=== PATIENT | female | born 1975 | race Two or more races ===

== ENCOUNTER → 2016-06-06 | Outpatient (REF) | payer BC ==
[2016-06-07 13:50] LABS: PERCENT SATURATION 5.2 % (13.2-37.4)
[2016-06-07 14:11] LABS: FOLATE 9.1 NG/ML (>5.4)
== END ==
LOC: M LAB REF 12:22
PROVIDERS: ATTEND Internal Medicine
DX: D50.9 Iron deficiency anemia, unspecified (principal)

== ENCOUNTER → 2017-02-28 | Outpatient (CLI) | payer BC ==
--- NOTE | 2017-03-01 09:52 | REP ---
Maxillofacial CT without contrast: History: Disturbance of smell and taste. No comparison imaging. Technique: Helical scanning is acquired and 3 mm axial images are reformatted and viewed at soft tissue and bone window settings. Coronal multiplanar re-formation images are generated. CT findings: The frontal, ethmoid, sphenoid, and maxillary sinuses are clear. Mastoid aeration is normal and symmetric. No intraorbital mass lesion is seen. Bony orbital margins are intact. Deep facial soft tissues are unremarkable and symmetric. Nasopharynx is unremarkable. The bony nasal septum is in the midline. Nasal turbinate soft tissues are normal. No nasal polyp is seen. There are bilateral aerated dylan bullosa. The ostiomeatal complexes are patent bilaterally. Nasal ethmoid recesses are unremarkable. Jess blanca and olfactory grooves are normal in appearance. No bony destructive lesion is seen. Impression: Negative maxillofacial CT study. Signed by Lester Baker MD 03/01/2017 03:54 P
== END ==
LOC: M RAD 18:02
PROVIDERS: ATTEND Otolaryngology
DX: R43.9 Unspecified disturbances of smell and taste (principal)

== ENCOUNTER → 2017-04-21 | Outpatient (REF) | payer BC ==
[2017-04-21 14:42] LABS: INFLUENZA A AMPLIFICATION NEGATIVE (NEGATIVE); INFLUENZA B AMPLIFICATION POSITIVE (NEGATIVE); RSV AMPLIFICATION NEGATIVE (NEGATIVE)
== END ==
LOC: M LAB REF 13:43
DX: J11.1 Influenza due to unidentified influenza virus with other respiratory manifestations (principal)
CPT/HCPCS: 87502

== ENCOUNTER → 2017-05-18 | Outpatient (CLI) | payer BC | LOC: M RAD 17:09 | DX: N93.8 Other specified abnormal uterine and vaginal bleeding (principal) ==

== ENCOUNTER → 2017-06-16 | Outpatient (REF) | payer BC | LOC: M SFHCLERA 18:05 | DX: R50.9 Fever, unspecified (principal) ==

== ENCOUNTER → 2019-02-25 | Outpatient (REF) | payer BC | LOC: M SFHCLERA 10:25 | PROVIDERS: ATTEND Family Medicine | DX: E66.01 Morbid (severe) obesity due to excess calories (principal); D64.9 Anemia, unspecified ==

== ENCOUNTER → 2019-12-19 | Outpatient (CLI) | payer BC ==
--- NOTE | 2019-12-19 17:20 | REPMRS ---
Patient History The patient states she has not had a clinical breast exam in over a year. Family history of ovarian cancer in maternal aunt, endometrial cancer at age 36 in mother, colorectal cancer at age 50 or over and pancreatic cancer at age 50 or over in maternal grandfather. No Hormone Replacement Therapy Digital Woman Screen Mammo: December 19, 2019 - Exam #: [id number] Bilateral CC and MLO view(s) were taken. Technologist: Elizabeth Dennison, Technologist Prior study comparison: July 10, 2013, digital mammo diagnostic bilateral, performed at [facility]. FINDINGS: The breast tissue is almost entirely fat. The Volpara volumetric breast density category is: A. There is a 9 mm well-circumscribed nodular opacity in the upper outer quadrant on the right breast which does not appear to have been present previously. This merits further evaluation. There has been no other change in the appearance of the mammogram from the prior studies. There is no other interval development of dominant mass, architectural distortion, or grouped microcalcification typical of malignancy. 3-D tomosynthesis shows no additional findings. Assessment: BI-RADS/ACR category 0 mammogram, Incomplete. Need additonal imaging evaluation and/or prior mammograms for comparison. Recommendation Ultrasound and special view mammogram of the right breast. This patient's Lifetime Breast Cancer RIsk is estimated at 9.0 %. This mammogram was interpreted with the aid of an FDA-approved computer-aided dectection system. Electronically Signed By: Tito Baker MD 12/19/19 [id number]
== END ==
LOC: M WHC 15:01
PROVIDERS: ATTEND Nurse Practitioner Family
DX: Z12.31 Encounter for screening mammogram for malignant neoplasm of breast (principal); Z80.41 Family history of malignant neoplasm of ovary; Z80.0 Family history of malignant neoplasm of digestive organs; N63.11 Unspecified lump in the right breast, upper outer quadrant

== ENCOUNTER → 2019-12-31 | Outpatient (CLI) | payer BC ==
--- NOTE | 2020-01-01 16:02 | REP ---
INDICATION: R92.8 ABN RIGHT MAMMO; R92.8 ABN RIGHT BREAST. COMPARISON: Mammogram 12/19/2019, and 07/10/2013. TECHNIQUE: Spot compression views of the right breast are performed. Focused right breast of the outer right breast posteriorly. Ultrasound is performed FINDINGS: A low-density nodule persists in the outer right breast posteriorly, as seen on the mammogram of 12/19/2019. Somewhat ill-defined. It is low in density. Real-time sonographic evaluation of the right breast is performed posterolaterally. No sonographic abnormality is seen at the site of the nodule on the mammogram. In the far lateral axillary tail there does appear to be an intramammary lymph node which measures 1.0 x 0.8 x 0.6 cm. This does not appear to correspond to the nodule in question on the mammogram. The lymph node identified sonographically appears to be further way from the nipple. IMPRESSION: BIRADS/ACR category 4 suspicious. Persistent nodule posterolateral right breast with no sonographic correlate. Recommend stereotactic biopsy. This mammogram was interpreted with the aid of an FDA-approved computer-aided detection system. The patient letter being requested is M 4. RECOMMENDATION: Recommend stereotactic biopsy of nodule posterolateral right breast. <Electronically signed by Keith Adams > 01/01/20 [id number]
== END ==
LOC: M WHC 15:38
PROVIDERS: ATTEND Family Medicine
DX: R92.8 Other abnormal and inconclusive findings on diagnostic imaging of breast (principal); N63.10 Unspecified lump in the right breast, unspecified quadrant

== ENCOUNTER → 2020-01-01 | Outpatient (REF) | payer BC | LOC: M SFHCWAGY 13:06 | PROVIDERS: ATTEND Nurse Practitioner Women's Health | DX: Z12.4 Encounter for screening for malignant neoplasm of cervix (principal) ==

== ENCOUNTER → 2020-01-04 | Outpatient (CLI) | payer BC ==
[2020-01-04 17:51] LABS: BASO # 0.1 10^3/uL (0.0-0.2); BASO % 0.8 % (0.0-1.0); EOS # 0.2 10^3/uL (0.0-0.5); EOS % 3.6 % (0.0-3.0); HEMATOCRIT 32.1 % (36.0-47.0); HEMOGLOBIN 8.7 g/dl (12.0-15.5); LYMPH # 2.5 10^3/uL (1.5-5.0); MEAN CORPUSCULAR HEMOGLOBIN 21.3 pg (27.0-33.0); MEAN CORPUSCULAR HGB CONC 27.1 g/dl (32.0-36.5); MEAN CORPUSCULAR VOLUME 78.7 fl (80.0-96.0); MONO # 0.5 10^3/uL (0.0-0.8); MONO % 7.8 % (0.0-5.0); NEUTROPHILS # 3.1 10^3/uL (1.5-8.5); NEUTROPHILS % 48.6 % (36.0-66.0); PLATELET COUNT, AUTOMATED 373 10^3/uL (150-450); RED BLOOD COUNT 4.08 10^6/uL (4.00-5.40); WHITE BLOOD COUNT 6.4 10^3/uL (4.0-10.0)
[2020-01-04 18:09] LABS: ALBUMIN 3.4 GM/DL (3.2-5.2); ALT/SGPT 24 U/L (12-78); BILIRUBIN,TOTAL 0.3 MG/DL (0.2-1.0); BLOOD UREA NITROGEN 10 MG/DL (7-18); CALCIUM LEVEL 9.2 MG/DL (8.5-10.1); CARBON DIOXIDE LEVEL 28 MEQ/L (21-32); CHLORIDE LEVEL 103 MEQ/L (98-107); CHOLESTEROL LEVEL 209 MG/DL (<200); CHOLESTEROL RISK RATIO 2.458 (<5); CREATININE FOR GFR 0.72 MG/DL (0.55-1.30); FERRITIN 5 NG/ML (8-252); FREE T4 0.99 NG/DL (0.76-1.46); GLOMERULAR FILTRATION RATE > 60.0 (>58); GLUCOSE, FASTING 183 MG/DL (70-100); HDL CHOLESTEROL 85 MG/DL (>40); LDL CHOLESTEROL 115 MG/DL (<100); NON-HDL-C 124 MG/DL; POTASSIUM SERUM 4.4 MEQ/L (3.5-5.1); SODIUM LEVEL 137 MEQ/L (136-145); THYROID STIMULATING HORMONE 0.705 uIU/ML (0.358-3.740); TOTAL PROTEIN 7.3 GM/DL (6.4-8.2); TRIGLYCERIDES LEVEL 47 MG/DL (<150)
[2020-01-04 18:14] LABS: HEMOGLOBIN A1c 9.8 %
== END ==
LOC: M WUC 11:48
PROVIDERS: ATTEND Nurse Practitioner Family
DX: R03.0 Elevated blood-pressure reading, without diagnosis of hypertension (principal); D64.9 Anemia, unspecified; E66.01 Morbid (severe) obesity due to excess calories

== ENCOUNTER → 2020-01-05 | Outpatient (CLI) | payer BC ==
--- NOTE | 2020-01-07 06:50 | REP ---
INDICATION: N93.9 AUB/EXCESSIVE MENSES COMPARISON: 05/18/2017 TECHNIQUE: Transabdominal pelvic ultrasound followed by transvaginal examination for better evaluation of the endometrium and adnexa with color Doppler evaluation of the ovaries. FINDINGS: Bladder is unremarkable and measures 5.2 x 8.3 x 10.6 cm. Heterogeneous anteverted myomatous uterus measures 11.0 x 5.9 x 5.5 cm and includes partially calcified degenerating subserosal fibroid measuring 5.7 x 4.9 x 4.5 cm and similar posterior subserosal fibroid measuring 3.4 x 2.8 x 2.6 cm. The endometrial complex measures 8.0 mm thickness. Bilateral ovaries are identified on transabdominal imaging only and demonstrate normal vascularity without torsion. Right ovary measures 3.6 x 2.4 x 2.3 cm (RI 0.49). Left ovary measures 3.6 x 2.3 x 2.5 cm (RI 0.51) and includes 1.8 cm dominant follicle/cyst. No pelvic free fluid. IMPRESSION: Myomatous changes as described above. <Electronically signed by Lorne Frausto > 01/07/20 0646
== END ==
LOC: M WHC 15:47
PROVIDERS: ATTEND Nurse Practitioner Women's Health
DX: N93.9 Abnormal uterine and vaginal bleeding, unspecified (principal)

== ENCOUNTER → 2020-02-09 | Outpatient (CLI) | payer BC | LOC: M LABSMTC 14:26 | PROVIDERS: ATTEND Family Medicine | DX: Z20.828 Contact with and (suspected) exposure to other viral communicable diseases (principal) ==

== ENCOUNTER 2020-04-11 14:26 | Emergency (ER) | payer BC ==
[~2020-04-11] VITALS: Ht 172.7 cm; Wt 113.6 kg
--- OUTSIDE RECORDS SUMMARY | 2020-04-11 14:32 | CCD ---
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 Active 9163238 05 Problem retirement (current) use of insulin Z79.4 Activ e 530480351 Problem Melanocytic nevi of face D22.30 Active 4809462 04 Problem Type 2 diabetes mellitus without complications E11 .9 Active 726209403 Problem Xerosis cutis L85.3 Active 98504161 Problem Obesity, morbid, BMI 40.0-49.9 E66.01 Active 2 79998117 Problem Abnormal mammogram of right breast R92.8 Activ e 468260857 Problem Abnormal uterine bleeding (AUB) N93.9 Active 38433927187957 Problem Iron deficiency anemia, unspecified iron deficiency an emia type D50.9 Active 58107064 ALLERGIES Allergen (clinical drug ingredient) Drug/Non Drug Allergy do cumented on EMR Reaction Allergy Type Onset Date Status bananas, pineapple Anaphylaxis Non Drug Allergy Active Penicillin (For Allergies Use Only) Anaphylaxis Drug Aller gy Active sulfamethoxazole / trimethoprim Bactrim(NDC Code:[address]-28) Hives, itching Drug Allergy Active contrast dye Unknown Drug Allergy Active Latex Gloves(NDC Code:84049-18697) Anaphylaxis Drug Allerg y Active clarithromycin Biaxin Rash Drug Allergy Active Kiwi Anaphylaxis Non Drug Allergy Active bees Anaphylaxis Non Drug Allergy Active clindamycin Clindamycin HCl(NDC Code:[address]-20) Anaphylaxis Drug Allergy Active Amoxicillin-Pot Clavulanate Rash Drug Allergy Active shellfish, seafood Anaphylaxis Drug Allergy Act chad ENCOUNTERS from 1973 to 2020-04-02 [facility] [address] [place] [address], Bipin Quintero IMMUNIZATIONS No Information SOCIAL HISTORY Tobacco Use: Social History Observation Description Date Details (start date - stop date) Never Smoker Sex Assigned At : Social History Observation Description Sex Assigned At Unknown Education: Question Answer Notes Level of Education: College Audit Question Answer Notes Total Score: 0 Interpretation: Alcohol Education Language: Question Answer Notes Languages spoken: Colombian Taoism: Question Answer Notes Taoism 08 Orthodox Sexual Hx: Question Answer Notes Have you ever had an STD? No Drug and Alcohol Question Answer Notes Total Score: 0 Interpretation: No problems reported BMI Care Goal Follow-Up Question Answer Notes Above Normal BMI Follow-Up Dietary management educatio n, guidance, and counseling, Dietary needs education Tobacco Use: Question Answer Notes Are you a: never smoker REASON FOR REFERRAL No Information VITAL SIGNS No information MEDICATIONS Medication SIG (Take, Route, Frequency, Duration) Notes Start Da te End Date Status Benadryl 25 MG 1 capsule Orally as needed Active HydrOXYzine HCl 25 MG 1 tablet as needed Orally every 8 hrs Active Tylenol Extra Strength 500 mg 2 tab(s) Orally every 6 hrs as needed Active Dymista 137-50 MCG/ACT 1 spray in each nostril Nasally Twice a day Not-Taking Sumatriptan 10 MG/ACT 1 puff at onset of headache may repeat dose after 1 hour up to 3 doses per day as needed Nasally Once a day Active Ibuprofen 800 MG 1 tablet Orally four times d aily as needed for pain take with food for 10 day(s) Mar, Not-Taking Xyzal 2-3 tablets Orally Once a day Active Metformin HCl 500 MG 1 tablet with a meal Orally bid, after 2 weeks if tolerating increase to 1000 mg BID for 30 day(s) Active Sudafed 30 MG 1 tablet as needed Orally every 6 hrs for 5 day(s) Jun, Active Chlorhexidine Gluconate 0.12 % 15 ml Mouth/Throat, swi sh and spit bid for 10 day(s) Mar, Not-Taking EPINEPHrine 0.15 MG/DOSE Injection Not-Taking Azelastine HCl 0.05 % 1-2 drops into affected eye Ophthalmic Twice a day for 7 day(s) Apr, Active ProAir HFA 108 (90 Base) mcg/act 2 puffs as needed Inh alation qid prn for 90 day(s) Active HydrOXYzine HCl 25 MG 1 tablet as needed Orally every 8 hrs for 30 da y(s) Not-Taking Ibuprofen 800 MG 1 tablet with food or milk as needed Ora lly Three times a day Active Inna Active Lupron Depot (1-Month) 3.75 MG as directed Intramuscul ar every month for 30 days Feb, Active Zyrtec Allergy 10 MG 1 tablet Orally Once a day Active Sumatriptan Succinate 50 mg 1 tablet as needed one aleyda e Orally daily as needed for 15 day(s) Not-Taking Nasacort Allergy 24HR 55 MCG/ACT 1 spray in each nostril Nasally On a day Active PROCEDURES No Information RESULTS No Results REASON FOR VISIT FYI MEDICAL (GENERAL) HISTORY Type Description Date Medical History Allergic rhinitis Medical History Atopic dermatitis Medical History Childhood asthma (inactive) Medical History migraine headaches Medical History pap (Dr garvey) 2011 due 2013 Surgical History tonsillectomy/adenoidectomy 1993 Surgical History D&C x3 Surgical History Titanium Chip in Breast Hospitalization History surgeries above Hospitalization History asthma/pneumonia as a child Goals Section No Information Health Concerns No Information MEDICAL EQUIPMENT No Information MENTAL STATUS No Information FUNCTIONAL STATUS No Information ASSESSMENTS No Information PLAN OF TREATMENT Medication Medication Name Sig Start Date Stop Date Metformin HCl 500 MG 1 tablet with a meal Orally bid, after 2 weeks if tolerating increase to 1000 mg BID for 30 day(s) Next Appt Details Provider Name:Bipin Quintero, 2020-04-08 01:00:00 PM, [address] [place], [address], Provider Name:Bipin Quintero 2020-05-13 04:15:00 PM, [address] [place], [address], Insurance Providers Payer Name Payer Address Payer Phone Insured Name Patient Relati onship to Insured Coverage Start Date Coverage End Date [facility] [place] [id number] [address] [place] [address] [id number] CHRYSTAL VALENZUELA self
--- OUTSIDE RECORDS SUMMARY | 2020-04-11 14:32 | CCD ---
Author Author [facility] Organization 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 Active 8553941 05 Problem senior care (current) use of insulin Z79.4 Activ e 492271159 Problem Melanocytic nevi of face D22.30 Active 8390965 04 Problem Type 2 diabetes mellitus without complications E11 .9 Active 299096416 Problem Xerosis cutis L85.3 Active 12860734 Problem Obesity, morbid, BMI 40.0-49.9 E66.01 Active 2 47173293 Problem Abnormal mammogram of right breast R92.8 Activ e 964976523 Problem Abnormal uterine bleeding (AUB) N93.9 Active 90166507699984 Problem Iron deficiency anemia, unspecified iron deficiency an emia type D50.9 Active 10122890 ALLERGIES Allergen (clinical drug ingredient) Drug/Non Drug Allergy do cumented on EMR Reaction Allergy Type Onset Date Status bananas, pineapple Anaphylaxis Non Drug Allergy Active Penicillin (For Allergies Use Only) Anaphylaxis Drug Aller gy Active sulfamethoxazole / trimethoprim Bactrim(NDC Code:[address]-52) Hives, itching Drug Allergy Active contrast dye Unknown Drug Allergy Active Latex Gloves(NDC Code:91591-29537) Anaphylaxis Drug Allerg y Active clarithromycin Biaxin Rash Drug Allergy Active Kiwi Anaphylaxis Non Drug Allergy Active bees Anaphylaxis Non Drug Allergy Active clindamycin Clindamycin HCl(NDC Code:[address]-36) Anaphylaxis Drug Allergy Active Amoxicillin-Pot Clavulanate Rash Drug Allergy Active shellfish, seafood Anaphylaxis Drug Allergy Act chad ENCOUNTERS from 1973 to 2020-02-27 Encounter [facility] Date [facility] [address] [place] [address] Feb, Bipin Quintero Influenza J11.1 ; Breast nodule N63.0 an d Type 2 diabetes mellitus without complications E11.9 IMMUNIZATIONS No Information SOCIAL HISTORY Tobacco Use: Social History Observation Description Date Details (start date - stop date) Never Smoker Sex Assigned At : Social History Observation Description Sex Assigned At Unknown Education: Question Answer Notes Level of Education: College Audit Question Answer Notes Total Score: 0 Interpretation: Alcohol Education Language: Question Answer Notes Languages spoken: Greenlandic Faith: Question Answer Notes Faith 08 Moravian Sexual Hx: Question Answer Notes Have you ever had an STD? No Drug and Alcohol Question Answer Notes Total Score: 0 Interpretation: No problems reported BMI Care Goal Follow-Up Question Answer Notes Above Normal BMI Follow-Up Dietary management educatio n, guidance, and counseling, Dietary needs education Tobacco Use: Question Answer Notes Are you a: never smoker REASON FOR REFERRAL No Information VITAL SIGNS Weight 299 lbs Feb, Height 67 in Feb, BMI 46.82 kg/m2 Feb, Heart Rate 80 /min Feb, Respiratory Rate 18 /min Feb, Temperature 98.1 degrees Fahrenheit Feb, Oximetry 100% Feb, Blood pressure systolic 152 mm Hg Feb, Blood pressure diastolic 93 mm Hg Feb, MEDICATIONS Medication SIG (Take, Route, Frequency, Duration) Notes Start Da te End Date Status HydrOXYzine HCl 25 MG 1 tablet as needed Orally every 8 hrs Active Sumatriptan Succinate 50 mg 1 tablet as needed one aleyda e Orally daily as needed for 15 day(s) Not-Taking Benadryl 25 MG 1 capsule Orally as needed Active Ibuprofen 800 MG 1 tablet Orally four times d aily as needed for pain take with food for 10 day(s) Mar, Not-Taking Tylenol Extra Strength 500 mg 2 tab(s) Orally every 6 hrs as needed Active EPINEPHrine 0.15 MG/DOSE Injection Not-Taking Sumatriptan 10 MG/ACT 1 puff at onset of headache may repeat dose after 1 hour up to 3 doses per day as needed Nasally Once a day Active Lupron Depot (1-Month) 3.75 MG as directed Intramuscul ar every month for 30 days Feb, Active Ibuprofen 800 MG 1 tablet with food or milk as needed Ora lly Three times a day Active HydrOXYzine HCl 25 MG 1 tablet as needed Orally every 8 hrs for 30 da y(s) Not-Taking Chlorhexidine Gluconate 0.12 % 15 ml Mouth/Throat, swi sh and spit bid for 10 day(s) Mar, Not-Taking Xyzal 2-3 tablets Orally Once a day Active Nasacort Allergy 24HR 55 MCG/ACT 1 spray in each nostril Nasally On ce a day Active Dymista 137-50 MCG/ACT 1 spray in each nostril Nasally Twice a day Not-Taking Zyrtec Allergy 10 MG 1 tablet Orally Once a day Active ProAir HFA 108 (90 Base) mcg/act 2 puffs as needed Inh alation qid prn for 90 day(s) Active Metformin HCl 500 MG 1 tablet with a meal Orally bid, after 2 weeks if tolerating increase to 1000 mg BID for 30 day(s) Active Azelastine HCl 0.05 % 1-2 drops into affected eye Ophthalmic Twice a day for 7 day(s) Apr, Active Inna Active Sudafed 30 MG 1 tablet as needed Orally every 6 hrs for 5 day(s) Jun, Active PROCEDURES No Information RESULTS No Results REASON FOR VISIT 1 [facility] MEDICAL (GENERAL) HISTORY Type Description Date Medical History Allergic rhinitis Medical History Atopic dermatitis Medical History Childhood asthma (inactive) Medical History migraine headaches Medical History pap (Dr garvey) 2011 due 2013 Surgical History tonsillectomy/adenoidectomy 1992 Surgical History D&C x3 Hospitalization History surgeries above Hospitalization History asthma/pneumonia as a child Goals Section No Information Health Concerns No Information MEDICAL EQUIPMENT No Information MENTAL STATUS No Information FUNCTIONAL STATUS No Information ASSESSMENTS Encounter Date Diagnosis Assessment Notes Treatment Notes Treatm ent Clinical Notes Feb, Influenza (ICD-10 - J11.1) Patient has the flu. Recommend she stay home and isolate until symptoms resolve. Can provide note for work for patient if needed. Call if symptoms worsen. Should start to improve within the week. Feb, Breast nodule (ICD-10 - N63.0) Has appointment at [facility] tomorrow. Will call to inform of current symptoms. Follow up as they instruct. Patient understood. If unable to get in to call us back, if need referral to call us back. Feb, Type 2 diabetes mellitus without complications ( ICD-10 - E11.9) Patient only taking meformin 1 tablet twice a day. Discussed wait until recover from flu before increasing dose as patient has not increased yet. Understood. PLAN OF TREATMENT Medication Medication Name Sig Start Date Stop Date Metformin HCl 500 MG 1 tablet with a meal Orally bid, after 2 weeks if tolerating increase to 1000 mg BID for 30 day(s) Lupron Depot (1-Month) 3.75 MG as directed Intramuscul ar every month for 30 days Feb, Treatment Notes Assessment Notes Clinical Notes Influenza Patient has the flu. Recommend she stay home and isolate until symptoms resolve. Can provide note for work for patient if needed. Call if symptoms worsen. Should start to improve within the week. Breast nodule Has appointment at [facility] tomorrow. Will call to inform of current symptoms. Follow up as they instruct. Patient understood. If unable to get in to call us back, if need referral to call us back. Type 2 diabetes mellitus without complications Patient only taking meformin 1 tablet twice a day. Discussed wait until recover from flu before increasing dose as patient has not increased yet. Understood. Next Appt Details 1 mth Reason: Provider Name:Bipin Sharma Quintero, 2020-03-18 04:00:00 PM, [address] [place], [address], Insurance Providers Payer Name Payer Address Payer Phone Insured Name Patient Relati onship to Insured Coverage Start Date Coverage End Date [employer] [place] [address] [address] [facility] [address] [place]RYST[place]EN[place] self
--- OUTSIDE RECORDS SUMMARY | 2020-04-11 14:32 | CCD ---
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 Active 7153471 05 Problem shelter (current) use of insulin Z79.4 Activ e 139935720 Problem Melanocytic nevi of face D22.30 Active 4993888 04 Problem Type 2 diabetes mellitus without complications E11 .9 Active 823134486 Problem Xerosis cutis L85.3 Active 66229994 Problem Obesity, morbid, BMI 40.0-49.9 E66.01 Active 2 06506423 Problem Abnormal mammogram of right breast R92.8 Activ e 806635995 Problem Abnormal uterine bleeding (AUB) N93.9 Active 95005139022004 Problem Iron deficiency anemia, unspecified iron deficiency an emia type D50.9 Active 93650450 ALLERGIES Allergen (clinical drug ingredient) Drug/Non Drug Allergy do cumented on EMR Reaction Allergy Type Onset Date Status bananas, pineapple Anaphylaxis Non Drug Allergy Active Penicillin (For Allergies Use Only) Anaphylaxis Drug Aller gy Active sulfamethoxazole / trimethoprim Bactrim(NDC Code:[address]-86) Hives, itching Drug Allergy Active contrast dye Unknown Drug Allergy Active Latex Gloves(NDC Code:78527-48700) Anaphylaxis Drug Allerg y Active clarithromycin Biaxin Rash Drug Allergy Active Kiwi Anaphylaxis Non Drug Allergy Active bees Anaphylaxis Non Drug Allergy Active clindamycin Clindamycin HCl(NDC Code:[address]-66) Anaphylaxis Drug Allergy Active Amoxicillin-Pot Clavulanate Rash Drug Allergy Active shellfish, seafood Anaphylaxis Drug Allergy Act chad ENCOUNTERS from 1973 to 2020-02-10 [facility]counter [facility] [address] [place] [address] Jan, Bipin Quintero IMMUNIZATIONS No Information SOCIAL HISTORY Tobacco Use: Social History Observation Description Date Details (start date - stop date) Never Smoker Sex Assigned At : Social History Observation Description Sex Assigned At Unknown Education: Question Answer Notes Level of Education: College Audit Question Answer Notes Total Score: 0 Interpretation: Alcohol Education Language: Question Answer Notes Languages spoken: Mozambican Restorationist: Question Answer Notes Restorationist 08 Baptism Sexual Hx: Question Answer Notes Have you [...] Notes Start Da te End Date Status Tylenol Extra Strength 500 mg 2 tab(s) Orally every 6 hrs as needed Active Chlorhexidine Gluconate 0.12 % 15 ml Mouth/Throat, swi sh and spit bid for 10 day(s) Mar, Not-Taking Zyrtec Allergy 10 MG 1 tablet Orally Once a day Active Nasacort Allergy 24HR 55 MCG/ACT 1 spray in each nostril Nasally On a day Active Metformin HCl 500 MG 1 tablet with a meal Orally bid, after 2 weeks if tolerating increase to 1000 mg BID for 30 day(s) Jan, Active Azelastine HCl 0.05 % 1-2 drops into affected eye Ophthalmic Twice a day for 7 day(s) Apr, Active Ibuprofen 800 MG 1 tablet Orally four times d aily as needed for pain take with food for 10 day(s) Mar, Not-Taking Sudafed 30 MG 1 tablet as needed Orally every 6 hrs for 5 day(s) Jun, Active Sumatriptan Succinate 50 mg 1 tablet as needed one aleyda e Orally daily as needed for 15 day(s) Not-Taking Dymista 137-50 MCG/ACT 1 spray in each nostril Nasally Twice a day Not-Taking Benadryl 25 MG 1 capsule Orally as needed Active Inna Active HydrOXYzine HCl 25 MG 1 tablet as needed Orally every 8 hrs for 30 da y(s) Not-Taking HydrOXYzine HCl 25 MG 1 tablet as needed Orally every 8 hrs Active EPINEPHrine 0.15 MG/DOSE Injection Not-Taking Sumatriptan 10 MG/ACT 1 puff at onset of headache may repeat dose after 1 hour up to 3 doses per day as needed Nasally Once a day Active ProAir HFA 108 (90 Base) mcg/act 2 puffs as needed Inh alation qid prn for 90 day(s) Active Ibuprofen 800 MG 1 tablet with food or milk as needed Ora lly Three times a day Active Xyzal 2-3 tablets Orally Once a day Active PROCEDURES No Information RESULTS No Results REASON FOR VISIT Breast Surgeon MEDICAL (GENERAL) HISTORY Type Description Date Medical History Allergic rhinitis Medical History Atopic dermatitis Medical History Childhood asthma (inactive) Medical History migraine headaches Medical History pap (Dr garvey) 2011 due 2013 Surgical History tonsillectomy/adenoidectomy 1993 Surgical History D&C x3 Hospitalization History surgeries above Hospitalization History asthma/pneumonia as a child Goals Section No Information Health Concerns No Information MEDICAL EQUIPMENT No Information MENTAL STATUS No Information FUNCTIONAL STATUS No Information ASSESSMENTS No Information PLAN OF TREATMENT Next Appt Details Provider Name:Bipin Quintero, 2020-02-16 04:00:00 PM, [address] [place], [address], Insurance Providers Payer Name Payer Address Payer Phone Insured Name Patient Relati onship to Insured Coverage Start Date Coverage End Date BS LET[place] [employer] [facility] [address] [facility] [address] CHRYSTAL VALENZUELA self
--- OUTSIDE RECORDS SUMMARY | 2020-04-11 14:32 | CCD ---
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 529834 003 Problem 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 Active 7952048 05 Problem group home (current) use of insulin Z79.4 Activ e 719824693 Problem Melanocytic nevi of face D22.30 Active 9303106 04 Problem Type 2 diabetes mellitus without complications E11 .9 Active 387145439 Problem Xerosis cutis L85.3 Active 12626101 Problem Obesity, morbid, BMI 40.0-49.9 E66.01 Active 2 43157058 Problem Abnormal mammogram of right breast R92.8 Activ e 808986922 Problem Abnormal uterine bleeding (AUB) N93.9 Active 42301094213126 Problem Iron deficiency anemia, unspecified iron deficiency an emia type D50.9 Active 22956054 ALLERGIES Allergen (clinical drug ingredient) Drug/Non Drug Allergy do cumented on EMR Reaction Allergy Type Onset Date Status bananas, pineapple Anaphylaxis Non Drug Allergy Active Penicillin (For Allergies Use Only) Anaphylaxis Drug Aller gy Active sulfamethoxazole / trimethoprim Bactrim(NDC Code:[address]-09) Hives, itching Drug Allergy Active contrast dye Unknown Drug Allergy Active Latex Gloves(NDC Code:28522-80472) Anaphylaxis Drug Allerg y Active clarithromycin Biaxin Rash Drug Allergy Active Kiwi Anaphylaxis Non Drug Allergy Active bees Anaphylaxis Non Drug Allergy Active clindamycin Clindamycin HCl(NDC Code:[address]-24) Anaphylaxis Drug Allergy Active Amoxicillin-Pot Clavulanate Rash Drug Allergy Active shellfish, seafood Anaphylaxis Drug Allergy Act chad ENCOUNTERS from 1973 to 2020-03-18 Encounter [facility] Date [facility] [address] [place] [address] Feb, Bipin Quintero IMMUNIZATIONS No Information SOCIAL HISTORY Tobacco Use: Social History Observation Description Date Details (start date - stop date) Never Smoker Sex Assigned At : Social History Observation Description Sex Assigned At Unknown Education: Question Answer Notes Level of Education: College Audit Question Answer Notes Total Score: 0 Interpretation: Alcohol Education Language: Question Answer Notes Languages spoken: Guatemalan Advent: Question Answer Notes Advent 08 Worship Sexual Hx: Question Answer Notes Have you [...] nostril Nasally On ce a day Active PROCEDURES No Information RESULTS No Results REASON FOR VISIT [facility]/ [facility] (GENERAL) HISTORY Type Description Date Medical History Allergic rhinitis Medical History Atopic dermatitis Medical History Childhood asthma (inactive) Medical History migraine headaches Medical History pap (Dr garvey) 2011 due 2013 Surgical History tonsillectomy/adenoidectomy 1992 Surgical History D&C x3 Surgical History Titanium [...] day(s) Next Appt Details Provider Name:Bipin Quintero, 2020-05-13 04:15:00 PM, [address] [place], [address], Insurance Providers Payer Name Payer Address Payer Phone Insured Name Patient Relati onship to Insured Coverage Start Date Coverage End Date SOL [employer] [address] [place] [address] CHRYSTAL VALENZUELA self
--- OUTSIDE RECORDS SUMMARY | 2020-04-11 14:32 | CCD ---
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 Active 8319425 05 Problem senior living (current) use of insulin Z79.4 Activ e 123015956 Problem Melanocytic nevi of face D22.30 Active 4694320 04 Problem Type 2 diabetes mellitus without complications E11 .9 Active 968558651 Problem Xerosis cutis L85.3 Active 89133722 Problem Obesity, morbid, BMI 40.0-49.9 E66.01 Active 2 97111767 Problem Abnormal mammogram of right breast R92.8 Activ e 300705540 Problem Abnormal uterine bleeding (AUB) N93.9 Active 52266590577641 Problem Iron deficiency anemia, unspecified iron deficiency an emia type D50.9 Active 70994132 ALLERGIES Allergen (clinical drug ingredient) Drug/Non Drug Allergy do cumented on EMR Reaction Allergy Type Onset Date Status bananas, pineapple Anaphylaxis Non Drug Allergy Active Penicillin (For Allergies Use Only) Anaphylaxis Drug Aller gy Active sulfamethoxazole / trimethoprim Bactrim(NDC Code:[address]-88) Hives, itching Drug Allergy Active contrast dye Unknown Drug Allergy Active Latex Gloves(NDC Code:23918-72125) Anaphylaxis Drug Allerg y Active clarithromycin Biaxin Rash Drug Allergy Active Kiwi Anaphylaxis Non Drug Allergy Active bees Anaphylaxis Non Drug Allergy Active clindamycin Clindamycin HCl(NDC Code:[address]-40) Anaphylaxis Drug Allergy Active Amoxicillin-Pot Clavulanate Rash Drug Allergy Active shellfish, seafood Anaphylaxis Drug Allergy Act chad ENCOUNTERS from 1973 to 2020-02-18 Encounter Location Date Provider Diagnosis [facility] [place] [address] Jan, Bpiin Torres Irregular bleeding N 92.6 IMMUNIZATIONS No Information SOCIAL HISTORY Tobacco Use: Social History Observation Description Date Details (start date - stop date) Never Smoker Sex Assigned At : Social History Observation Description Sex Assigned At Unknown Education: Question Answer Notes Level of Education: College Audit Question Answer Notes Total Score: 0 Interpretation: Alcohol Education Language: Question Answer Notes Languages spoken: Cambodian Evangelical: Question Answer Notes Evangelical 08 Jehovah'S Witness Sexual Hx: Question Answer Notes Have you [...] FOR REFERRAL No Information VITAL SIGNS Weight 306 lbs Jan, Weight-kg 138.8 kg Jan, Height 67 in Jan, BMI 47.92 kg/m2 Jan, Blood pressure systolic 140 mm Hg Jan, Blood pressure diastolic 92 mm Hg Jan, MEDICATIONS Medication SIG (Take, Route, Frequency, Duration) Notes Start Da te End Date Status Tylenol Extra Strength 500 mg 2 tab(s) Orally every 6 hrs as needed Active HydrOXYzine HCl 25 MG 1 tablet as needed Orally every 8 hrs Active Benadryl 25 MG 1 capsule Orally as needed Active Xyzal 2-3 tablets Orally Once a day Active Metformin HCl 500 MG 1 tablet with a meal Orally bid, after 2 weeks if tolerating increase to 1000 mg BID for 30 day(s) Jan, Active Nasacort Allergy 24HR 55 MCG/ACT 1 spray in each nostril Nasally On a day Active Sumatriptan 10 MG/ACT 1 puff at onset of headache may repeat dose after 1 hour up to 3 doses per day as needed Nasally Once a day Active Ibuprofen 800 MG 1 tablet with food or milk as needed Ora lly Three times a day Active EPINEPHrine 0.15 MG/DOSE Injection Not-Taking HydrOXYzine HCl 25 MG 1 tablet as needed Orally every 8 hrs for 30 da y(s) Not-Taking ProAir HFA 108 (90 Base) mcg/act 2 puffs as needed Inh alation qid prn for 90 day(s) Active Chlorhexidine Gluconate 0.12 % 15 ml Mouth/Throat, swi sh and spit bid for 10 day(s) Mar, Not-Taking Inna Active Sudafed 30 MG 1 tablet as needed Orally every 6 hrs for 5 day(s) Jun, Active Ibuprofen 800 MG 1 tablet Orally four times d aily as needed for pain take with food for 10 day(s) Mar, Not-Taking Dymista 137-50 MCG/ACT 1 spray in each nostril Nasally Twice a day Not-Taking Azelastine HCl 0.05 % 1-2 drops into affected eye Ophthalmic Twice a day for 7 day(s) Apr, Active Zyrtec Allergy 10 MG 1 tablet Orally Once a day Active Sumatriptan Succinate 50 mg 1 tablet as needed one aleyda e Orally daily as needed for 15 day(s) Not-Taking PROCEDURES No Information RESULTS No Results REASON FOR VISIT Surgical consult MEDICAL (GENERAL) HISTORY Type Description Date Medical [...] Notes Treatment Notes Treatm ent Clinical Notes Jan, Irregular bleeding (ICD-10 - N92.6) PLAN OF TREATMENT Next Appt Details Provider Name:Bipin Quintero, 2020-03-18 04:00:00 PM, [address] [place], [address], Insurance Providers Payer Name Payer Address Payer Phone Insured Name Patient Relati onship to Insured Coverage Start Date Coverage End Date BS [place] [employer] [address] [place] [address] [phone] CHRYSTAL VALENZUELA self
--- OUTSIDE RECORDS SUMMARY | 2020-04-11 14:32 | CCD | Continuity of Care Document ---
Author Author [facility] Organization Unknown Address [address], [place] [address] Phone [phone] Care Team Providers Care Feed In Worker Name Role Phone Lynette Bowman AUTM [phone] Problems Active Problems Provider Date Mild intermittent asthma Onset: 07/13/19 17 Allergic rhinitis due to house dust mite Vaughn Mello M.D. Onset: 05/11/2010 Note: 4+ reaction to dust mites on scrat ch test. Completed 2010. Allergic rhinitis caused by mold Vaughn Mello M.D. O nset: 05/11/2010 Note: 3+ reaction to molds on scratch te st. Completed 2010. Allergic rhinitis due to animals Vaughn Mello M.D. O nset: 05/11/2010 Note: 4+ reaction to cat and 3+ reaction to dog on scratch test. Completed 2010. Allergic rhinitis due to pollen Vaughn Mello M.D. On set: 05/11/2010 Note: 4++ reaction to grasses, 4+ reacti on to hickory, and 3+ reaction to ragweed on scratch test. 3+ reaction to Tree mix #1 (birch, oak, maple) and Tree mix #2 (justin, cottonwood, elm, pine) on intradermal test. Completed 2010. Social History Type Date Description Comments Sex Unknown Tobacco Use Start: Unknown Patient has never smoked Allergies, Adverse Reactions, Alerts Active Allergies Reaction Severity Comments Date Sulfonamides hives 11/02/2018 Fish 11/02/2018 Shell Fish (Shrimp, Crayfish, Lobster, Crab) 11/02/2018 Latex Anaphylaxis 01/13/2020 Penicillins Anaphylaxis 01/13/2020 Bactrim Anaphylaxis 01/13/2020 Medications Active Medications SIG Qnty Indications Ordering Provide r Date Acetaminophen 325mg Tablets take as needed Wellington Tariq MD Naproxen 500mg Tablets Take 1 tablet once daily Wellington Tariq MD Azelastine HCL (Ophthalmic) 0.05% Solution Instill 1-2 Drops Into The Affected Eye Twice Daily Unknown Xyzal Allergy 24HR 5mg Tablets take 1 tabley once daily Unknown Inna Allergy 180mg Tablets 1 tablet every morning Unknown Nasacort Allergy 24HR 55mcg/Act Ae rosol administer 2 sprays per nostril once daily. Unkn own Albuterol Sulfate HFA 108(90Base) mcg/Act Aerosol inhale two puffs by mouth every 4 to 6 hours as needed Unknown Immunizations Description No Information Available Vital Signs Date Vital Result Comment 01/13/2020 8:48am Weight 300.12 lb Height 68.5 inches 5'8.50" Heart Rate 76 /min Respiratory Rate 18 /min BP Systolic 127 mmHg BP Diastolic 84 mmHg BMI (Body Mass Index) 45.0 kg/m2 01/26/2017 9:05am BMI (Body Mass Index) 47.31 kg/m2 Results Description No Information Available Procedures Description No Information Available Medical Devices Description No Information Available Encounters Description No Information Available Assessments Description No Information Available Plan of Treatment Future Appointment(s):* 05/12/2020 3:45 pm - Vaughn Mello M.D. at Main Office Functional Status Description No Information Available Mental Status Description No Information Available Referrals Description No Information Available
--- OUTSIDE RECORDS SUMMARY | 2020-04-11 14:32 | CCD ---
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 024536 003 Problem 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 Active 1567141 05 Problem snf (current) use of insulin Z79.4 Activ e 418420958 Problem Melanocytic nevi of face D22.30 Active 6347762 04 Problem Type 2 diabetes mellitus without complications E11 .9 Active 353808831 Problem Xerosis cutis L85.3 Active 86283505 Problem Obesity, morbid, BMI 40.0-49.9 E66.01 Active 2 67584471 Problem Abnormal mammogram of right breast R92.8 Activ e 250494876 Problem Abnormal uterine bleeding (AUB) N93.9 Active 65049141041470 Problem Iron deficiency anemia, unspecified iron deficiency an emia type D50.9 Active 38346193 ALLERGIES Allergen (clinical drug ingredient) Drug/Non Drug Allergy do cumented on EMR Reaction Allergy Type Onset Date Status bananas, pineapple Anaphylaxis Non Drug Allergy Active Penicillin (For Allergies Use Only) Anaphylaxis Drug Aller gy Active sulfamethoxazole / trimethoprim Bactrim(NDC Code:[address]-13) Hives, itching Drug Allergy Active contrast dye Unknown Drug Allergy Active Latex Gloves(NDC Code:71049-50173) Anaphylaxis Drug Allerg y Active clarithromycin Biaxin Rash Drug Allergy Active Kiwi Anaphylaxis Non Drug Allergy Active bees Anaphylaxis Non Drug Allergy Active clindamycin Clindamycin HCl(NDC Code:[address]-66) Anaphylaxis Drug Allergy Active Amoxicillin-Pot Clavulanate Rash Drug Allergy Active shellfish, seafood Anaphylaxis Drug Allergy Act chad ENCOUNTERS from 1973 to 2020-03-24 [facility]counter [facility] [address] [place] [address] Mar, Bipin Quintero Type 2 diabetes mellitus without complic ations E11.9 ; 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 ; Abnormal uterine bleeding (AUB) N93.9 ; Alopecia L65.9 and Abnormal mammogram of right breast R92.8 IMMUNIZATIONS No Information SOCIAL HISTORY Tobacco Use: Social History Observation Description Date Details (start date - stop date) Never Smoker Sex Assigned At : Social History Observation Description Sex Assigned At Unknown Education: Question Answer Notes Level of Education: College Audit Question Answer Notes Interpretation: Alcohol Education Total Score: 0 Language: Question Answer Notes Languages spoken: Turkish Sabianist: Question Answer Notes Sabianist 08 Jewish Sexual Hx: Question Answer Notes Have you ever had an STD? No Drug and Alcohol Question Answer Notes Interpretation: No problems reported Total Score: 0 BMI Care Goal Follow-Up Question Answer Notes Above Normal BMI Follow-Up Dietary management educatio n, guidance, and counseling, Dietary needs education Tobacco Use: Question Answer Notes Are you a: never smoker REASON FOR REFERRAL No Information VITAL SIGNS Weight 299.2 lbs Mar, Height 67 in Mar, BMI 46.86 kg/m2 Mar, Heart Rate 82 /min Mar, Respiratory Rate 17 /min Mar, Temperature 98.0 degrees Fahrenheit Mar, Oximetry 100 Mar, Blood pressure systolic 126 mm Hg Mar, Blood pressure diastolic 79 mm Hg Mar, MEDICATIONS Medication SIG (Take, Route, Frequency, Duration) [...] RESULTS No Results REASON FOR VISIT 1 MONTH FOLLOW UP MEDICAL (GENERAL) HISTORY Type Description Date Medical [...] Notes Treatment Notes Treatm ent Clinical Notes Mar, Type 2 diabetes mellitus without complications ( ICD-10 - E11.9) Patient on metformin 500 mg BID. Was not taking with food, having nausea. Recommend take with food. If tolerate then increase to 1000 mg BID. Mar, History of lichen planus (ICD-10 - Z87.2) Order hep panel with future blood work. Mar, Abnormal uterine bleeding (AUB) (ICD-10 - N93.9) Continue to follow up with OB/ INVESTIGATIVE WRITER. Mar, Alopecia (ICD-10 - L65.9) Patient reports loosing hair for last several months. Notes not pulling hairback. Referral to [facility] nurse practioners for further evaluation. Mar, Abnormal mammogram of right breast (ICD-10 - R92 .8) Went to [facility]. Biospy was benign. Follow up in 6 months for repeat mammogram. PLAN OF TREATMENT Medication Medication Name Sig Start Date Stop Date Metformin HCl 500 MG 1 tablet with a meal Orally bid, after 2 weeks if tolerating increase to 1000 mg BID for 30 day(s) Treatment Notes Assessment Notes Clinical Notes Type 2 diabetes mellitus without complications Patient on metformin 500 mg BID. Was not taking with food, having nausea. Recommend take with food. If tolerate then increase to 1000 mg BID. History of lichen planus Order hep panel with future blood work. Abnormal uterine bleeding (AUB) Continue to follow up with OB/ INVESTIGATIVE WRITER. Alopecia Patient reports loos ing hair for last several months. Notes not pulling hairback.Referral to [facility] nurse practioners for further evaluation. Abnormal mammogram of right breast Went to [facility]. Biospy was benign. Follow up in 6 months for repeat mammogram. Next Appt Details Provider Name:Bipin Quintero, 2020-05-13 04:15:00 PM, [address] [place], [address], Insurance Providers Payer Name Payer Address Payer Phone Insured Name Patient Relati onship to Insured Coverage Start Date Coverage End Date [place] [address] [address] [facility] [address] CHRYSTAL VALENZUELA self
--- OUTSIDE RECORDS SUMMARY | 2020-04-11 14:32 | CCD ---
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 Active 7595634 05 Problem prison (current) use of insulin Z79.4 Activ e 820167846 Problem Melanocytic nevi of face D22.30 Active 7051962 04 Problem Type 2 diabetes mellitus without complications E11 .9 Active 680151905 Problem Xerosis cutis L85.3 Active 13227093 Problem Obesity, morbid, BMI 40.0-49.9 E66.01 Active 2 38705665 Problem Abnormal mammogram of right breast R92.8 Activ e 710450275 Problem Abnormal uterine bleeding (AUB) N93.9 Active 34030152017565 Problem Iron deficiency anemia, unspecified iron deficiency an emia type D50.9 Active 80105693 ALLERGIES Allergen (clinical drug ingredient) Drug/Non Drug Allergy do cumented on EMR Reaction Allergy Type Onset Date Status bananas, pineapple Anaphylaxis Non Drug Allergy Active Penicillin (For Allergies Use Only) Anaphylaxis Drug Aller gy Active sulfamethoxazole / trimethoprim Bactrim(NDC Code:[address]-04) Hives, itching Drug Allergy Active contrast dye Unknown Drug Allergy Active Latex Gloves(NDC Code:57134-92662) Anaphylaxis Drug Allerg y Active clarithromycin Biaxin Rash Drug Allergy Active Kiwi Anaphylaxis Non Drug Allergy Active bees Anaphylaxis Non Drug Allergy Active clindamycin Clindamycin HCl(NDC Code:[address]-50) Anaphylaxis Drug Allergy Active Amoxicillin-Pot Clavulanate Rash Drug Allergy Active shellfish, seafood Anaphylaxis Drug Allergy Act chad ENCOUNTERS from 1973 to 2020-02-27 Encounter Location Date Provider Diagnosis [facility] Women's Wellness and Breast Care [facility] [place] [address] Jan, Bipin Torres IMMUNIZATIONS No Information SOCIAL HISTORY Tobacco Use: Social History Observation Description Date Details (start date - stop date) Never Smoker Sex Assigned At : Social History Observation Description Sex Assigned At Unknown Education: Question Answer Notes Level of Education: College Audit Question Answer Notes Total Score: 0 Interpretation: Alcohol Education Language: Question Answer Notes Languages spoken: Belizean Judaism: Question Answer Notes Judaism 08 Yarsanism Sexual Hx: Question Answer Notes Have you [...] Information RESULTS No Results REASON FOR VISIT Lupron Auth MEDICAL (GENERAL) HISTORY Type Description Date Medical [...] ar every month for 30 days Feb, Next Appt Details Provider Name:AndreaZachary Quintero, 2020-03-18 04:00:00 PM, [address] [place], [address], Insurance Providers Payer Name Payer Address Payer Phone Insured Name Patient Relati onship to Insured Coverage Start Date Coverage End Date BS [place] [employer] [address] [place] [id number] CHRYSTAL VALENZUELA self
--- OUTSIDE RECORDS SUMMARY | 2020-04-11 14:32 | CCD | Continuity of Care Document ---
Author Author [facility] ME[facility] Organization Unknown Address [address] [place] [address] Phone [phone] Care Team Providers Care Data Reporting Analyst Name Role Phone Lynette Bowman PATIENT SERVICE REPRESENTATIVE AUTM [phone] Problems Active Problems Provider Date Mild intermittent asthma Onset: 07/13/19 17 Allergic rhinitis due to house dust mite Vaughn Mello M.D. Onset: 05/11/2010 Note: 4+ reaction to Alternaria mold spo res on scratch test. 4++ reaction to dust mites on intradermal test. Allergic rhinitis caused by mold Vaughn Mello M.D. O nset: 05/11/2010 Note: 4+ reaction to Alternaria mold spo res on scratch test. 4++ reaction to dust mites on intradermal test. Allergic rhinitis due to animals Vaughn Mello M.D. O nset: 05/11/2010 Note: 4+ positive reaction to cat dande r and 3+ positive reaction to dog dander on scratch test. Allergic rhinitis due to pollen Vaughn Mello M.D. On set: 05/11/2010 Note: 4++ positive reaction to grass shania raad with 4+ positive reaction to ragweed pollen and hickory tree pollen on scratch test. 4++ positive reaction to weed pollen with 3+ positive reaction to tree mix #1 (birch, oak, maple) with 3+ positive reaction to tree mix #2 (justin, cottonwood, elm, pine) on intradermal test. Urticaria due to cold and heat Vaughn Mello M.D. Ons et: 01/13/2020 Social History Type Date Description Comments Sex Unknown Tobacco Use Start: Unknown Patient has never smoked Smoking Status Reviewed: 01/13/20 Patient has never smoked Allergies, Adverse Reactions, Alerts Active Allergies Reaction Severity Comments Date Sulfonamides hives 11/02/2018 Fish 11/02/2018 Shell Fish (Shrimp, Crayfish, Lobster, Crab) 11/02/2018 Latex Anaphylaxis 01/13/2020 Penicillins Anaphylaxis 01/13/2020 Bactrim Anaphylaxis 01/13/2020 Medications Active Medications SIG Qnty Indications Ordering Provide r Date Azelastine HCL (Nasal) 0.15% Solut ion 2 sprays each nostril once a day every morning 30ml J30.89 Vaughn Mello M.D. 01/13/2020 Acetaminophen 325mg Tablets take as needed [place] [...] kg/m2 Results Description No Information Available Procedures Date Code Description Status 01/13/2020 79430 Allergy Tests Intrad ermal W/ Allergenic Extr Immediate Reaction Completed 01/13/2020 42996 Allergy Tests Percutaneous W/ Al lergenic Extracts Completed 01/13/2020 89754 Bronchodilation Resp onsiveness Spirometry Pre/Post Bronchodil Adm Completed Medical Devices Description No Information Available Encounters Type Date Location Provider Dx Diagnosis Office Visit 01/13/2020 9:30a Main Office Vaughn Mello M.D. J30.89 Other allergic rhinitis J30.81 Allergic rhinitis due to ani mal (cat) (dog) hair and dander J30.1 Allergic rhinitis due to shania raad J45.20 Mild intermittent asthma, un complicated L50.2 Urticaria due to cold and he at Assessments Date Code Description Provider 01/13/2020 J30.89 Allergic rhinitis due to house d ust mite and molds Vaughn Mello M.D. 01/13/2020 J30.81 Allergic rhinitis due to animals Vaughn Mello M.D. 01/13/2020 J30.1 Allergic rhinitis due to pollen Vaughn Mello M.D. 01/13/2020 J45.20 Mild intermittent asthma Vaughn Mello M.D. 01/13/2020 L50.2 Urticaria due to cold and heat D nancy Mello M.D. Plan of Treatment Future Appointment(s):* 05/12/2020 3:45 pm - Vaughn Mello M.D. at Main Office 01/13/2020 - Vaughn Mello M.D.* J30.89 Allergic rhinitis due to house dust mite and molds* New Medication:* Azelastine HCL (Nasal) 0.15 % - 2 sprays each nostril once a day every morning * Recommendations:* I reviewed effective allergy avoidance measures for dust mites. The patient should continue using Nasacort every night (report no consistent use). I explained that Nasacort should be used consistently to be effective. Will add Astelin to the plan. Because of the severity of allergy problem allergy immunotherapy may be considered strongly if symptoms continue or fail to improve with medications. I explained the risks and benefits associated with immunotherapy at this time as well. * J30.81 Allergic rhinitis due to animals* Recommendations:* Effective allergy avoidance measures in regards to allergy to pets were reviewed. She is currently exposed to a dog and that seems to be an important trigger. See above. * J30.1 Allergic rhinitis due to pollen* Recommendations:* Because of the severity of pollen allergy I reviewed and suggested effective allergy avoidance measures. See above. * J45.20 Mild intermittent asthma* Recommendations:* Because the breathing problem is intermittent and not very persistent this patient may still use albuterol prn cough and wheezing during colds only. It may be necessary to low dose ICS to this routine if the cough becomes more persistent over time. * L50.2 Urticaria due to cold and heat* Recommendations:* I explained that this patient should avoid exposure to cold if possible (should be careful when submerging in cold water, christie, should be swimming with friends or family around, should be covering body parts when very cold outside). Should continue using Xyzal on BID basis in order to suppress her sensitivity. * All * Follow up:* 3 months. Sooner if needed. Functional Status Description No Information Available Mental Status Description No Information Available Referrals Description No Information Available
--- OUTSIDE RECORDS SUMMARY | 2020-04-11 14:32 | CCD ---
Author Author [facility] Organization [facility] Address Unknown Phone Unavailable Care Team Providers Care [place] Former Machine Operator Name Role Phone Bipin Quintero Unavailable PROBLEMS Type Condition ICD9-CM Code [id number] Code Onset Dates Condition S tatus SNOMED Code Notes Problem Allergic rhinitis, cause unspecified 477.9 Act chad 92129367 Problem Obesity, unspecified 278.00 Active 754572019 Problem Iron deficiency anemia due to dietary causes 280.1 Active 038751254 Problem Migraine, unspecified withou t mention of intractable migraine without mention of status migrainosus 346.90 Active 538931 09 Problem Post inflammatory hypopigmentation L81.8 Activ e 356152105 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 709371 003 Problem 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 Active 6096576 05 Problem care home (current) use of insulin Z79.4 Activ e 239291325 Problem Melanocytic nevi of face D22.30 Active 4860415 04 Problem Type 2 diabetes mellitus without complications E11 .9 Active 804660710 Problem Xerosis cutis L85.3 Active 95438087 Problem Obesity, morbid, BMI 40.0-49.9 E66.01 Active 2 71018099 Problem Abnormal mammogram of right breast R92.8 Activ e 579287937 Problem Abnormal uterine bleeding (AUB) N93.9 Active 21188365292731 Problem Iron deficiency anemia, unspecified iron deficiency an emia type D50.9 Active 99213579 ALLERGIES Allergen (clinical drug ingredient) Drug/Non Drug Allergy do cumented on EMR Reaction Allergy Type Onset Date Status bananas, pineapple Anaphylaxis Non Drug Allergy Active Penicillin (For Allergies Use Only) Anaphylaxis Drug Aller gy Active sulfamethoxazole / trimethoprim Bactrim([facility] Code:[address]-15) Hives, itching Drug Allergy Active contrast dye Unknown Drug Allergy Active Latex Gloves([facility] Code:61590-84740) Anaphylaxis Drug Allerg y Active clarithromycin Biaxin Rash Drug Allergy Active Kiwi Anaphylaxis Non Drug Allergy Active bees Anaphylaxis Non Drug Allergy Active clindamycin Clindamycin HCl([facility] Code:[address]-53) Anaphylaxis Drug Allergy Active Amoxicillin-Pot Clavulanate Rash Drug Allergy Active shellfish, seafood Anaphylaxis Drug Allergy Act chad ENCOUNTERS from 1973 to 2020-01-21 Encounter Location Date Provider Diagnosis [facility] [address] [place] [address] Jan, Bipin Quintero Type 2 diabetes mellitus without complic ations E11.9 IMMUNIZATIONS No Information SOCIAL HISTORY Tobacco Use: Social History Observation Description Date Details (start date - stop date) Never Smoker Sex Assigned At : Social History Observation Description Sex Assigned At Unknown Education: Question Answer Notes Level of Education: College Audit Question Answer Notes Total Score: 0 Interpretation: Alcohol Education Language: Question Answer Notes Languages spoken: Cambodian Mormonism: Question Answer Notes Mormonism 08 Lutheran Sexual Hx: Question Answer Notes Have you [...] MEDICATIONS Medication SIG (Take, Route, Frequency, Duration) Start Date En d Date Status Zyrtec Allergy 10 MG 1 tablet Orally Once a day Active Metformin HCl 500 MG 1 tablet with a meal Orally bid, after 2 weeks if tolerating increase to 1000 mg BID for 30 day(s) Jan, Active Sumatriptan 10 MG/ACT 1 puff at onset of headache may repeat dose after 1 hour up to 3 doses per day as needed Nasally Once a day Active ProAir HFA 108 (90 Base) mcg/act 2 puffs as needed Inh alation qid prn for 90 day(s) Active HydrOXYzine HCl 25 MG 1 tablet as needed Orally every 8 hrs Active Inna Active Sudafed 30 MG 1 tablet as needed Orally every 6 hrs for 5 day(s) Jun, Active Benadryl 25 MG 1 capsule Orally as needed Active Tylenol Extra Strength 500 mg 2 tab(s) Orally every 6 hrs as needed Active HydrOXYzine HCl 25 MG 1 tablet as needed Orally every 8 hrs for 30 day(s) Not-Taking Ibuprofen 800 MG 1 tablet with food or milk as needed Ora lly Three times a day Active Sumatriptan Succinate 50 mg 1 tablet as needed one aleyda e Orally daily as needed for 15 day(s) Not-Taking Xyzal 2-3 tablets Orally Once a day Active EPINEPHrine 0.15 MG/DOSE Injection Not -Taking Ibuprofen 800 MG 1 tablet Orally four times d aily as needed for pain take with food for 10 day(s) Mar, Not-Taking Dymista 137-50 MCG/ACT 1 spray in each nostril Nasally Twice a day Not-Taking Azelastine HCl 0.05 % 1-2 drops into affected eye Ophthalmic Twice a day for 7 day(s) Apr, Active Nasacort Allergy 24HR 55 MCG/ACT 1 spray in each nostril Nasally On ce a day Active Chlorhexidine Gluconate 0.12 % 15 ml Mouth/Throat, swi sh and spit bid for 10 day(s) Mar, Not-Taking PROCEDURES No Information RESULTS No Results REASON FOR VISIT metformin MEDICAL (GENERAL) HISTORY Type Description Date Medical [...] STATUS No Information ASSESSMENTS Encounter Date Diagnosis Notes Jan, Type 2 diabetes mellitus without complic ations (ICD-10 - E11.9) PLAN OF TREATMENT Medication Medication Name Sig Start Date Stop Date Metformin HCl 500 MG 1 tablet with a meal Orally bid, after 2 weeks if tolerating increase to 1000 mg BID for 30 day(s) Jan, Next Appt Details Provider Name:Bipin Sharma Quintero, 2020-02-16 04:00:00 PM, [address] [place], [address], Insurance Providers Payer Name Payer Address Payer Phone Insured Name Patient Relati onship to Insured Coverage Start Date Coverage End Date SOL [facility] [address] [facility] [id number] CHRYSTAL VALENZUELA self
--- OUTSIDE RECORDS SUMMARY | 2020-04-11 14:32 | CCD ---
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 Active 7045842 05 Problem intermediate (current) use of insulin Z79.4 Activ e 056998455 Problem Melanocytic nevi of face D22.30 Active 2554377 04 Problem Type 2 diabetes mellitus without complications E11 .9 Active 760886988 Problem Xerosis cutis L85.3 Active 80375350 Problem Obesity, morbid, BMI 40.0-49.9 E66.01 Active 2 58663784 Problem Abnormal mammogram of right breast R92.8 Activ e 644439145 Problem Abnormal uterine bleeding (AUB) N93.9 Active 92411688154794 Problem Iron deficiency anemia, unspecified iron deficiency an emia type D50.9 Active 61514811 ALLERGIES Allergen (clinical drug ingredient) Drug/Non Drug Allergy do cumented on EMR Reaction Allergy Type Onset Date Status bananas, pineapple Anaphylaxis Non Drug Allergy Active Penicillin (For Allergies Use Only) Anaphylaxis Drug Aller gy Active sulfamethoxazole / trimethoprim Bactrim(NDC Code:[address]-68) Hives, itching Drug Allergy Active contrast dye Unknown Drug Allergy Active Latex Gloves(NDC Code:81058-61320) Anaphylaxis Drug Allerg y Active clarithromycin Biaxin Rash Drug Allergy Active Kiwi Anaphylaxis Non Drug Allergy Active bees Anaphylaxis Non Drug Allergy Active clindamycin Clindamycin HCl(NDC Code:[address]-68) Anaphylaxis Drug Allergy Active Amoxicillin-Pot Clavulanate Rash Drug Allergy Active shellfish, seafood Anaphylaxis Drug Allergy Act chad ENCOUNTERS from 1973 to 2020-02-27 Encounter Location Date Provider Diagnosis [facility] Women's Wellness [facility] Breast Care [facility] [place] [address] Feb, Bipin Torres IMMUNIZATIONS No Information SOCIAL HISTORY Tobacco Use: Social History Observation Description Date Details (start date - stop date) Never Smoker Sex Assigned At : Social History Observation Description Sex Assigned At Unknown Education: Question Answer Notes Level of Education: College Audit Question Answer Notes Total Score: 0 Interpretation: Alcohol Education Language: Question Answer Notes Languages spoken: Polish Bahai: Question Answer Notes Bahai 08 Yazidism Sexual Hx: Question Answer Notes Have you [...] RESULTS No Results REASON FOR VISIT Lupron MEDICAL (GENERAL) HISTORY Type Description Date Medical [...] Details Provider Name:AndreaZachary Quintero, 2020-03-18 04:00:00 PM, [address] [place], [address], Insurance Providers Payer Name Payer Address Payer Phone Insured Name Patient Relati onship to Insured Coverage Start Date Coverage End Date BS [place] [employer] [address] [place] [address] CHRYSTAL VALENZUELA self
--- OUTSIDE RECORDS SUMMARY | 2020-04-11 14:32 | CCD | Continuity of Care Document ---
Author Author [facility] GONZALEZ MA Organization Unknown Address [address] [place] [address] Phone [phone] Care Team Providers Care Clam Picker Name Role Phone [facility] AUTM [phone] [facility] AUTM [phone] Problems Description No Information Available Social History Type Date Description Comments Sex Unknown ETOH Use Denies alcohol use Tobacco Use Start: Unknown Patient has never smoked Tobacco Use Start: Unknown The patient has never vaped Smoking Status Reviewed: 02/11/20 The patient has never vaped Allergies, Adverse Reactions, Alerts Active Allergies Reaction Severity Comments Date Clindamycin 02/11/2020 Biaxin 02/11/2020 Sulfa 02/11/2020 Penicillins 02/11/2020 Amoxicillin 02/11/2020 IV Contrast 02/11/2020 Latex 02/11/2020 Seafood 02/11/2020 Shellfish-Derived Products 1 04/13/2019 Bananas 02/11/2020 Kiwi 02/11/2020 Pineapple 02/11/2020 Cold Exposure 02/11/2020 Inactive Allergies NKDA 02/11/2020 Medications Active Medications SIG Qnty Indications Ordering Provide r Date Xyzal Allergy 24HR 5mg Tablets 1 by mouth every day Unknown Nasacort Allergy 24HR 55mcg/Act Ae rosol use 2 sprays in each nostril once daily Unknown Inna-D 12 Hour Allergy & Congestion 60-120mg Tablets ER 12HR 1 by mouth twice a day Unknown Hydroxyzine HCL Unknown 0 Benadryl Allergy Unknown 00 Metformin HCL 500mg Tablets Unknown Ibuprofen 200 200mg Tablets per package instructions Unknown Immunizations Description No Information Available Vital Signs Date Vital Result Comment 02/11/2020 1:31pm BP Systolic 147 mmHg BP Diastolic 95 mmHg Heart Rate 92 /min Respiratory Rate 18 /min O2 % BldC Oximetry 96 % Body Temperature 98.6 F Weight 252.00 lb Height 69 inches 5'9" BMI (Body Mass Index) 37.2 kg/m2 Pain Level 2 Results Description No Information Available Procedures Description No Information Available Medical Devices Description No Information Available Encounters Type Date Location Provider Dx Diagnosis Office Visit 02/11/2020 2:40p Main Office DELISA Ross J10.1 Flu due to oth ident influenza virus w oth resp manifest Z20.828 Contact w and exposure to ot h viral communicable diseases Assessments Date Code Description Provider 02/11/2020 J10.1 Influenza due to oth er identified influenza virus with other respiratory manifestations DELISA Ross 02/11/2020 Z20.828 Contact with and (hensley spected) exposure to other viral communicable diseases DELISA Ross Plan of Treatment No Information Available Functional Status Description No Information Available Mental Status Description No Information Available Referrals Description No Information Available
--- OUTSIDE RECORDS SUMMARY | 2020-04-11 14:32 | CCD ---
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 Active 5635389 05 Problem retirement (current) use of insulin Z79.4 Activ e 778704650 Problem Melanocytic nevi of face D22.30 Active 3244421 04 Problem Type 2 diabetes mellitus without complications E11 .9 Active 180741329 Problem Xerosis cutis L85.3 Active 17010472 Problem Obesity, morbid, BMI 40.0-49.9 E66.01 Active 2 53625890 Problem Abnormal mammogram of right breast R92.8 Activ e 458562759 Problem Abnormal uterine bleeding (AUB) N93.9 Active 77761650703540 Problem Iron deficiency anemia, unspecified iron deficiency an emia type D50.9 Active 46199227 ALLERGIES Allergen (clinical drug ingredient) Drug/Non Drug Allergy do cumented on EMR Reaction Allergy Type Onset Date Status bananas, pineapple Anaphylaxis Non Drug Allergy Active Penicillin (For Allergies Use Only) Anaphylaxis Drug Aller gy Active sulfamethoxazole / trimethoprim Bactrim(NDC Code:[address]-46) Hives, itching Drug Allergy Active contrast dye Unknown Drug Allergy Active Latex Gloves(NDC Code:28386-19485) Anaphylaxis Drug Allerg y Active clarithromycin Biaxin Rash Drug Allergy Active Kiwi Anaphylaxis Non Drug Allergy Active bees Anaphylaxis Non Drug Allergy Active clindamycin Clindamycin HCl(NDC Code:[address]-06) Anaphylaxis Drug Allergy Active Amoxicillin-Pot Clavulanate Rash Drug Allergy Active shellfish, seafood Anaphylaxis Drug Allergy Act chad ENCOUNTERS from 1973 to 2020-02-16 [facility]counter [facility] Date [facility] [address] [place] [address] Jan, Bipin Quintero Breast nodule N63.0 ; Iron deficiency an emia, unspecified iron deficiency anemia type D50.9 and Type 2 diabetes mellitus without complications E11.9 IMMUNIZATIONS No Information SOCIAL HISTORY Tobacco Use: Social History Observation Description Date Details (start date - stop date) Never Smoker Sex Assigned At : Social History Observation Description Sex Assigned At Unknown Education: Question Answer Notes Level of Education: College Audit Question Answer Notes Total Score: 0 Interpretation: Alcohol Education Language: Question Answer Notes Languages spoken: [place] Buddhist: Question Answer Notes Buddhist 08 Nondenominational Sexual Hx: Question Answer Notes Have you [...] FOR REFERRAL No Information VITAL SIGNS Weight 303 lbs Jan, Height 67 in Jan, BMI 47.45 kg/m2 Jan, Heart Rate 95 /min Jan, Respiratory Rate 18 /min Jan, Temperature 98.2 degrees Fahrenheit Jan, Oximetry 98% Jan, Blood pressure systolic 126 mm Hg Jan, Blood pressure diastolic 82 mm Hg Jan, MEDICATIONS Medication SIG (Take, [...] Information RESULTS No Results REASON FOR VISIT Discuss mammo results MEDICAL (GENERAL) HISTORY Type Description Date Medical [...] Treatment Notes Treatm ent Clinical Notes Jan, Breast nodule (ICD-10 - N63.0) Refer patient to breast surgeon for breast sterotactic biospy. Patient has Birads 4 mammogram. Jan, Iron deficiency anemia, unsp ecified iron deficiency anemia type (ICD-10 - D50.9) Recommend patient try iron supplement with vitamin C. Repeat lab in future. Jan, Type 2 diabetes mellitus without complications ( ICD-10 - E11.9) Start patient on metformin. A1C elevated. Start off 500 mg BID and increase to 1000 mg BID after a week if tolerate medication. Reviewed risks and benefit. PLAN OF TREATMENT Treatment Notes Assessment Notes Clinical Notes Breast nodule Refer patient to matteo ast surgeon for breast sterotactic biospy. Patient has Birads 4 mammogram. Iron deficiency anemia, unspecified iron deficiency anemia t ype Recommend patient try iron supplement with vitamin C. Repeat lab in future. Type 2 diabetes mellitus without complications Start patient on metformin. A1C elevated. Start off 500 mg BID and increase to 1000 mg BID after a week if tolerate medication. Reviewed risks and benefit. Next Appt Details 1 mth Reason:DM Provider Name:Bipin Quintero, 2020-03-18 04:00:00 PM, [address] [place], [address], Follow Up:1 mthDM Insurance Providers Payer Name Payer Address Payer Phone Insured Name Patient Relati onship to Insured Coverage Start Date Coverage End Date [place] [id number] [address] [facility] [id number] [place] self
--- OUTSIDE RECORDS SUMMARY | 2020-04-11 14:32 | CCD | Continuity of Care Document ---
Author Author Jewels GONZALEZ ND Organization Unknown Address [address] [place] [address] Phone [phone] Care Team Providers Care Auditing Specialist Name Role Phone [facility] [phone] [facility] AUTM [phone] Problems Description No Information Available Social History [...] Description No Information Available Plan of Treatment No Information Available Functional Status Description No Information Available Mental Status Description No Information Available Referrals Description No Information Available
--- OUTSIDE RECORDS SUMMARY | 2020-04-11 14:33 | CCD ---
Author Author [facility] Organization [facility] Address Unknown Phone Unavailable Care Team Providers Care Watch Inspector Name Role Phone MURIEL MELLO MD Unavailable Unavailable MURIEL MELLO MD Unavailable Unavailable MURIEL MELLO MD Unavailable Unavailable MURIEL MELLO MD Unavailable Unavailable MURIEL MELLO MD Unavailable Unavailable MURIEL MELLO MD Unavailable Unavailable MURIEL MELLO MD Unavailable Unavailable MURIEL MELLO MD Unavailable Unavailable MURIEL MELLO MD Unavailable Unavailable MURIEL MELLO MD Unavailable Unavailable MURIEL MELLO MD Unavailable Unavailable MURIEL MELLO MD Unavailable Unavailable MURIEL MELLO MD Unavailable Unavailable MURIEL MELLO MD Unavailable Unavailable MURIEL MELLO MD Unavailable Unavailable MURIEL MELLO MD Unavailable Unavailable MURIEL MELLO MD Unavailable Unavailable MURIEL MELLO MD Unavailable Unavailable MURIEL MELLO MD Unavailable Unavailable MURIEL MELLO MD Unavailable Unavailable MURIEL MELLO MD Unavailable Unavailable MURIEL MELLO MD Unavailable Unavailable MURIEL MELLO MD Unavailable Unavailable MURIEL MELLO MD Unavailable Unavailable MURIEL MELLO MD Unavailable Unavailable MURIEL MELLO MD Unavailable Unavailable MURIEL MELLO MD Unavailable Unavailable CHROSTMURIEL JOHNS MD Unavailable Unavailable CHROSTOWSKIMURIEL MD Unavailable Unavailable CHROSTOWSKIMURIEL MD Unavailable Unavailable CHROSTOWSKIMURIEL MD Unavailable Unavailable CHROSTOWSKIMURIEL MD Unavailable Unavailable CHROSTOWSKIMURIEL MD Unavailable Unavailable CHROSTOWSKIMURIEL MD Unavailable Unavailable CHROSTOWSKIMURIEL MD Unavailable Unavailable CHROSTOWSKIMURIEL MD Unavailable Unavailable CHROSTOWSKIMURIEL MD Unavailable Unavailable CHROSTOWSKIMURIEL MD Unavailable Unavailable CHROSTOWSKIMURIEL MD Unavailable Unavailable CHROSTMURIEL JOHNS MD Unavailable Unavailable OrestesAmarilys MD Unavailable Unavailable OrestesAmarilys MD Unavailable Unavailable OrestesAmarilys MD Unavailable Unavailable OrestesAmarilys MD Unavailable Unavailable OrestesAmarilys MD Unavailable Unavailable OrestesAmarilys MD Unavailable Unavailable OrestesAmarilys MD Unavailable Unavailable OrestesAmarilys MD Unavailable Unavailable OrestesAmarilys MD Unavailable Unavailable OrestesAmarilys MD Unavailable Unavailable OrestesAmarilys MD Unavailable Unavailable OrestesAmarilys MD Unavailable Unavailable OrestesAmarilys MD Unavailable Unavailable OrestesAmarilys MD Unavailable Unavailable OrestesAmarilys MD Unavailable Unavailable OrestesAmarilys MD Unavailable Unavailable OrestesAmarilys MD Unavailable Unavailable OrestesAmarilys MD Unavailable Unavailable OrestesAmarilys MD Unavailable Unavailable OrestesAmarilys sheriff MD Unavailable Unavailable OrestesAmarilys sheriff MD Unavailable Unavailable OrestesAmarilys sheriff MD Unavailable Unavailable OrestesAmarilys MD Unavailable Unavailable OrestesAmarilys MD Unavailable Unavailable OrestesAmarilys MD Unavailable Unavailable OrestesAmarilys MD Unavailable Unavailable OrestesAmarilys MD Unavailable Unavailable OrestesAmarilys MD Unavailable Unavailable OrestesAmarilys MD Unavailable Unavailable OrestesAmarilys MD Unavailable Unavailable OrestesAmarilys MD Unavailable Unavailable OrestesAmarilys MD Unavailable Unavailable OerstesAmarilys MD Unavailable Unavailable OresetsAmarilys MD Unavailable Unavailable OrestesAmarilys MD Unavailable Unavailable OrestesAmarilys MD Unavailable Unavailable OrestesAmarilys MD Unavailable Unavailable OrestesAmarilys MD Unavailable Unavailable OrestesAmarilys MD Unavailable Unavailable OrestesAmarilys MD Unavailable Unavailable Orestes, Amarilys Gisselle MD Unavailable Unavailable Orestes, Amarilys Pitts MD Unavailable Unavailable Orestes, Amarilys Pitts MD Unavailable Unavailable Orestes, Amarilys Pitts MD Unavailable Unavailable Orestes, Amarilys Pitts MD Unavailable Unavailable Orestes, Amarilys Pitts MD Unavailable Unavailable Orestes, Amarilyssawyer Pitts MD Unavailable Unavailable Orestes, Amarilys Pitts MD Unavailable Unavailable Orestes, Amarilys Pitts MD Unavailable Unavailable Orestes, Amarilys Pitts MD Unavailable Unavailable Orestes, Amarilys Gisselle MD Unavailable Unavailable Orestes, Amarilys Gisselle MD Unavailable Unavailable Orestes, Amarilyssawyer Pitts MD Unavailable Unavailable Orestes, Amarilyssawyer Pitts MD Unavailable Unavailable Orestes, Amarilyssawyer Pitts MD Unavailable Unavailable Orestes, Amarilys Pitts MD Unavailable Unavailable Orestes, Amarilys Pitts MD Unavailable Unavailable Orestes, Amarilys Pitts MD Unavailable Unavailable Orestes, Amarilys Pitts MD Unavailable Unavailable Orestes, Amarilys Pitts MD Unavailable Unavailable Orestes, Amarilys Pitts MD Unavailable Unavailable Orestes, Amarilys Pitts MD Unavailable Unavailable Orestes, Amarilys Pitts MD Unavailable Unavailable Orestes, Amarilys Pitts MD Unavailable Unavailable Orestes, Amarilys Pitts MD Unavailable Unavailable Orestes, Amarilys Pitts MD Unavailable Unavailable Orestes, Amarilys Pitts MD Unavailable Unavailable Orestes, Amarilys Pitts MD Unavailable Unavailable Orestes, Amarilys Pitts MD Unavailable Unavailable Orestes, Amarilys Pitts MD Unavailable Unavailable Orestes, Amarilys Pitts MD Unavailable Unavailable Hodges, Claire Leslee PA Unavailable Unavailable Hodges, Claire Leslee PA Unavailable Unavailable Hodges, Claire Leslee PA Unavailable Unavailable Hodges, Claire Leslee PA Unavailable Unavailable Hodges, Claire Leslee PA Unavailable Unavailable Hodges, Claire Leslee PA Unavailable Unavailable Hodges, Claire Leslee PA Unavailable Unavailable Hodges, Claire Leslee PA Unavailable Unavailable Hodges, Claire Leslee PA Unavailable Unavailable Hodges, Claire Leslee PA Unavailable Unavailable Re-disclosure Warning The records that you are about to access may contain information from federally-assisted alcohol or drug abuse programs. If such information is present, then the following federally mandated warning applies: This information has been disclosed to you from records protected by federal confidentiality rules (42 CFR part 2). The federal rules prohibit you from making any further disclosure of this information unless further disclosure is expressly permitted by the written consent of the person to whom it pertains or as otherwise permitted by 42 CFR part 2. A general authorization for the release of medical or other information is NOT sufficient for this purpose. The Federal rules restrict any use of the information to criminally investigate or prosecute any alcohol or drug abuse patient.The records that you are about to access may contain highly sensitive health information, the redisclosure of which is protected by Article 27-F of the [facility] Public Health law. If you continue you may have access to information: Regarding HIV / AIDS; Provided by facilities licensed or operated by the [facility] Office of Mental Health; or Provided by the [facility] Office for People With Developmental Disabilities. If such information is present, then the following [facility] mandated warning applies: This information has been disclosed to you from confidential records which are protected by state law. State law prohibits you from making any further disclosure of this information without the specific written consent of the person to whom it pertains, or as otherwise permitted by law. Any unauthorized further disclosure in violation of state law may result in a fine or chcf sentence or both. A general authorization for the release of medical or other information is NOT sufficient authorization for further disc losure. Allergies and Adverse Reactions Type Description Substance Reaction Status Data Source(s ) Drug allergy Latex Gloves Drug allergy Anaphylaxis Active eCW1 ( [facility]) Drug allergy Bactrim sulfamethoxazole / trimethoprim Hives, itchin g Active eCW1 ([facility]) Biaxin Biaxin Clarithromycin 250 MG Oral Tablet [Biaxin] Rash Active eCW1 ([facility]) Clindamycin HCl Clindamycin HCl Clindamycin HCl Anaphylaxis Active eCW1 ([facility]) bananas, pineapple bananas, pineapple bananas, pineapple Anaphylaxis Active eCW1 ([facility]) Kiwi Kiwi Kiwi Anaphylaxis Active eCW1 ([facility]) Amoxicillin-Pot Clavulanate Amoxicillin-Pot Clavulanate Amox icillin-Pot Clavulanate Rash Active eCW1 ([facility]) contrast dye contrast dye contrast dye Unknown Active eCW1 ([facility]) Drug allergy shellfish, seafood shellfish, seafood Anaphylaxis Activ e eCW1 ([facility]) bees bees bees Anaphylaxis Active eCW1 ([facility]) Biaxin Biaxin Biaxin Rash Active eCW1 ([facility]) Carmelo Rhodes Kiwi Anaphylaxis Active eCW1 ([facility]) contrast dye contrast dye contrast dye Unknown Active eCW1 ([facility]) Amoxicillin-Pot Clavulanate Amoxicillin-Pot Clavulanate Amox icillin-Pot Clavulanate Rash Active eCW1 ([facility]) Drug allergy shellfish, seafood shellfish, seafood Anaphylaxis Activ e eCW1 ([facility]) bees bees bees Anaphylaxis Active eCW1 ([facility]) bananas, pineapple bananas, pineapple bananas, pineapple Anaphylaxis Active eCW1 ([facility]) Biaxin Biaxin Clarithromycin 250 MG Oral Tablet [Biaxin] Rash Active eCW1 ([facility]) bananas, pineapple bananas, pineapple bananas, pineapple Anaphylaxis Active eCW1 ([facility]) Carmelo Rhodes Kijosé miguel Anaphylaxis Active eCW1 ([facility]) Amoxicillin-Pot Clavulanate Amoxicillin-Pot Clavulanate Amox icillin-Pot Clavulanate Rash Active eCW1 ([facility]) contrast dye contrast dye contrast dye Unknown Active eCW1 ([facility]) Drug allergy shellfish, seafood shellfish, seafood Anaphylaxis Activ e eCW1 ([facility]) bees bees bees Anaphylaxis Active eCW1 ([facility]) Drug Allergy Drug Allergy NKDA MEDENT ([facility], [facility]) Family History Family Member Name Family Member Gender Family Member Status Date o f Status Description Data Source(s) Unknown Unknown Problem MEDENT ([facility]) Unknown Female Problem [facility] ([facility]) Unknown [facility] Female Problem [facility] Encounters Encounter Providers Location Date Indications Data Source(s ) [place] [address] [facility] [address] 03/31/2020 12:00:00 AM EST eCW1 ([facility]) [place] [address] [facility] [address] 03/18/2020 12:00:00 AM EST [facility] [place] [address] [facility] [address] 02/25/2020 12:00:00 AM EST [facility]) Unknown [address] [facility] [place] [address] 02/25/2020 12:00:00 AM EST [facility]CW1 [facility]) Outpatient Attender: Gisselle Carlisle MDReferrer: Gisselle Carlisle MD 02/23/2020 12:00:00 AM [facility] Outpatient Attender: Gisselle Carlisle MDReferrer: Gisselle Carlisle MD 02/23/2020 12:00:00 AM [facility] Outpatient Attender: Gisselle Carlisle MD 02/23/2020 12:00:00 AM [facility] Outpatient [address] [facility] [place] [address] 02/16/2020 12:00:00 AM EST eCW1 [facility]) Outpatient Attender: Leslee mccoy 02/11/2020 01:40:00 PM EST MEDENT ([facility]) [place] [address] [facility] [address] 02/09/2020 12:00:00 AM EST eCW1 ([facility]) [place] [address] [facility] [address] 02/09/2020 12:00:00 AM EST eCW1 ([facility] Unknown [address] [facility] [place] [address] 02/02/2020 12:00:00 AM EST eCW1 ([facility]) Unknown [address] [facility] [place] [address] 01/20/2020 12:00:00 AM EST eCW1 ([facility]) Outpatient [address] [facility] Y [address] 01/15/2020 12:00:00 AM EST eCW1 ([facility]) Outpatient Attender: MURIEL MELLO MD Main Office 01/13/2020 08:30:00 AM EST MEDENT ([facility]) Unknown [address] [facility] [address] 01/07/2020 12:00:00 AM EDT eCW1 ([facility]) Unknown [address] [facility] [id number] 01/07/2020 12:00:00 AM EDT eCW1 ([facility]) Outpatient [address] [facility] [address] 01/01/2020 12:00:00 AM EDT eCW1 ([facility]) Unknown [address] [facility] [address] 12/23/2019 12:00:00 AM EDT eCW1 ([facility]) [facility] [place] [address] [facility] [address] 04/15/2019 12:00:00 AM EST eCW1 ([facility]) [facility] [place] [address] [place] [address] 03/17/2019 12:00:00 AM EST eCW1 ([facility]) [facility] [place] [address] [facility] [place] [address] 02/25/2019 12:00:00 AM EST eCW1 ([facility]) [facility] [place] [address] [facility] [place] [address] 02/25/2019 12:00:00 AM EST eCW1 ([facility]) Medications Medication Brand Name Start Date Product Form Dose Route Admi nistrative Instructions Pharmacy Instructions Status Indications Reaction Description Data Source(s) 1 ML Leuprolide Acetate 3.75 MG/ML Prefi lled Syringe [Lupron] Lupron Depot (1- Month) 3.75 MG Lupron Depot (1-Month) 3.75 MG 02/27/2020 12:00:00 AM EST active Lupron Depot (1-Month) 3. 75 MG eCW1 ([facility]) 1 ML Leuprolide Acetate 3.75 MG/ML Prefi lled Syringe [Lupron] Lupron Depot (1- Month) 3.75 MG Lupron Depot (1-Month) 3.75 MG 02/27/2020 12:00:00 AM EST active Lupron Depot (1-Month) 3. 75 MG eCW1 ([facility]) 1 ML Leuprolide Acetate 3.75 MG/ML Prefi lled Syringe [Lupron] Lupron Depot (1- Month) 3.75 MG Lupron Depot (1-Month) 3.75 MG 02/27/2020 12:00:00 AM EST active Lupron Depot (1-Month) 3. 75 MG eCW1 ([facility]) 1 ML Leuprolide Acetate 3.75 MG/ML Prefi lled Syringe [Lupron] Lupron Depot (1- Month) 3.75 MG Lupron Depot (1-Month) 3.75 MG 02/27/2020 12:00:00 AM EST active Lupron Depot (1-Month) 3. 75 MG eCW1 ([facility]) 1 ML Leuprolide Acetate 3.75 MG/ML Prefi lled Syringe [Lupron] Lupron Depot (1- Month) 3.75 MG Lupron Depot (1-Month) 3.75 MG 02/27/2020 12:00:00 AM EST active Lupron Depot (1-Month) 3. 75 MG eCW1 ([facility]) 1 ML Leuprolide Acetate 3.75 MG/ML Prefi lled Syringe [Lupron] Lupron Depot (1- Month) 3.75 MG Lupron Depot (1-Month) 3.75 MG 02/27/2020 12:00:00 AM EST active Lupron Depot (1-Month) 3. 75 MG eCW1 ([facility]) Metformin hydrochloride 500 MG Oral Tablet Metformin H Cl 500 MG Metformin HCl 500 MG 01/15/2020 12:00:00 AM EST 1.0 {tablet_with_a_meal} active Metformin HCl 500 MG eCW1 ([facility]) Metformin hydrochloride 500 MG Oral Tablet Metformin H Cl 500 MG Metformin HCl 500 MG 01/15/2020 12:00:00 AM EST 1.0 {tablet_with_a_meal} active Metformin HCl 500 MG eCW1 ([facility]) Metformin hydrochloride 500 MG Oral Tablet Metformin H Cl 500 MG Metformin HCl 500 MG 01/15/2020 12:00:00 AM EST 1.0 {tablet_with_a_meal} active Metformin HCl 500 MG eCW1 ([facility]) Metformin hydrochloride 500 MG Oral Tablet Metformin H Cl 500 MG Metformin HCl 500 MG 01/15/2020 12:00:00 AM EST 1.0 {tablet_with_a_meal} active Metformin HCl 500 MG eCW1 ([facility]) Azelastine HCL (Nasal) Azelastine HCL (Nasal) 01/13/2020 12:00:[address] active MEDENT ([facility]) Azelastine hydrochloride 0.5 MG/ML Ophthalmic Solution Azelastine HCl 0.05 % Azelastine HCl 0.05 % 04/15/2019 12:00:00 AM EST active Azelastine HCl 0.05 % eCW1 ([facility]) Azelastine hydrochloride 0.5 MG/ML Ophthalmic Solution Azelastine HCl 0.05 % Azelastine HCl 0.05 % 04/15/2019 12:00:00 AM EST active Azelastine HCl 0.05 % eCW1 ([facility]) Azelastine hydrochloride 0.5 MG/ML Ophthalmic Solution Azelastine HCl 0.05 % Azelastine HCl 0.05 % 04/15/2019 12:00:00 AM EST active Azelastine HCl 0.05 % eCW1 ([facility]) Azelastine hydrochloride 0.5 MG/ML Ophthalmic Solution Azelastine HCl 0.05 % Azelastine HCl 0.05 % 04/15/2019 12:00:00 AM EST active Azelastine HCl 0.05 % eCW1 ([facility]) Azelastine hydrochloride 0.5 MG/ML Ophthalmic Solution Azelastine HCl 0.05 % Azelastine HCl 0.05 % 04/15/2019 12:00:00 AM EST active Azelastine HCl 0.05 % eCW1 ([facility]) Azelastine hydrochloride 0.5 MG/ML Ophthalmic Solution Azelastine HCl 0.05 % Azelastine HCl 0.05 % 04/15/2019 12:00:00 AM EST active Azelastine HCl 0.05 % eCW1 ([facility]) Azelastine hydrochloride 0.5 MG/ML Ophthalmic Solution Azelastine HCl 0.05 % Azelastine HCl 0.05 % 04/15/2019 12:00:00 AM EST active Azelastine HCl 0.05 % eCW1 ([facility]) Azelastine hydrochloride 0.5 MG/ML Ophthalmic Solution Azelastine HCl 0.05 % Azelastine HCl 0.05 % 04/15/2019 12:00:00 AM EST active Azelastine HCl 0.05 % eCW1 ([facility]) Azelastine hydrochloride 0.5 MG/ML Ophthalmic Solution Azelastine HCl 0.05 % Azelastine HCl 0.05 % 04/15/2019 12:00:00 AM EST active Azelastine HCl 0.05 % eCW1 ([facility]) Azelastine hydrochloride 0.5 MG/ML Ophthalmic Solution Azelastine HCl 0.05 % Azelastine HCl 0.05 % 04/15/2019 12:00:00 AM EST active Azelastine HCl 0.05 % eCW1 ([facility]) Azelastine hydrochloride 0.5 MG/ML Ophthalmic Solution Azelastine HCl 0.05 % Azelastine HCl 0.05 % 04/15/2019 12:00:00 AM EST active Azelastine HCl 0.05 % eCW1 ([facility]) Azelastine hydrochloride 0.5 MG/ML Ophthalmic Solution Azelastine HCl 0.05 % Azelastine HCl 0.05 % 04/15/2019 12:00:00 AM EST active 1-2 drops into affected eye eCW1 ([facility]) Azelastine hydrochloride 0.5 MG/ML Ophthalmic Solution Azelastine HCl 0.05 % Azelastine HCl 0.05 % 04/15/2019 12:00:00 AM EST active Azelastine HCl 0.05 % eCW1 ([facility]) Azelastine hydrochloride 0.5 MG/ML Ophthalmic Solution Azelastine HCl 0.05 % Azelastine HCl 0.05 % 04/15/2019 12:00:00 AM EST active Azelastine HCl 0.05 % eCW1 ([facility]) Azelastine hydrochloride 0.5 MG/ML Ophthalmic Solution Azelastine HCl 0.05 % Azelastine HCl 0.05 % 04/15/2019 12:00:00 AM EST active Azelastine HCl 0.05 % eCW1 ([facility]) Ibuprofen 800 MG Oral Tablet Ibuprofen 800 MG 03/17/2019 12:00:[address] suspended 1 tablet eCW1 ([facility]) Ibuprofen 800 MG Oral Tablet Ibuprofen 800 MG 03/17/2019 12:00:00 A M EST 1.0 {tablet} suspended Ibuprofen 800 MG eCW1 ([facility]) Ibuprofen 800 MG UNK 03/17/2019 12:00:00 AM EST a ctive 1 tablet eCW1 ([facility]) Ibuprofen 800 MG Oral Tablet Ibuprofen 800 MG 03/17/2019 12:00:00 A M EST 1.0 {tablet} suspended Ibuprofen 800 MG eCW1 ([facility]) chlorhexidine gluconate 1.2 MG/ML Mouthwash Chlorhexid ine Gluconate 0.12 % Chlorhexidine Gluconate 0.12 % 03/17/2019 12:00:00 AM EST 15.0 {ml} suspended Chlorhexidine Gluconate 0.12 % e CW1 ([facility]) Ibuprofen 800 MG Oral Tablet Ibuprofen 800 MG 03/17/2019 12:00:00 A M EST 1.0 {tablet} suspended Ibuprofen 800 MG eCW1 ([facility]) chlorhexidine gluconate 1.2 MG/ML Mouthwash Chlorhexid ine Gluconate 0.12 % Chlorhexidine Gluconate 0.12 % 03/17/2019 12:00:00 AM EST 15.0 {ml} suspended Chlorhexidine Gluconate 0.12 % e CW1 ([facility]) Ibuprofen 800 MG Oral Tablet Ibuprofen 800 MG 03/17/2019 12:00:00 A M EST 1.0 {tablet} suspended Ibuprofen 800 MG eCW1 ([facility]) chlorhexidine gluconate 1.2 MG/ML Mouthwash Chlorhexid ine Gluconate 0.12 % Chlorhexidine Gluconate 0.12 % 03/17/2019 12:00:00 AM EST suspended 15 ml eCW1 ([facility]) chlorhexidine gluconate 1.2 MG/ML Mouthwash Chlorhexid ine Gluconate 0.12 % Chlorhexidine Gluconate 0.12 % 03/17/2019 12:00:00 AM EST 15.0 {ml} suspended Chlorhexidine Gluconate 0.12 % e CW1 ([facility]) chlorhexidine gluconate 1.2 MG/ML Mouthwash Chlorhexid ine Gluconate 0.12 % Chlorhexidine Gluconate 0.12 % 03/17/2019 12:00:00 AM EST 15.0 {ml} suspended Chlorhexidine Gluconate 0.12 % e CW1 ([facility]) Ibuprofen 800 MG Oral Tablet Ibuprofen 800 MG 03/17/2019 12:00:00 A M EST 1.0 {tablet} suspended Ibuprofen 800 MG eCW1 ([facility]) Ibuprofen 800 MG Oral Tablet Ibuprofen 800 MG 03/17/2019 12:00:00 A M EST 1.0 {tablet} suspended Ibuprofen 800 MG eCW1 ([facility]) Ibuprofen 800 MG Oral Tablet Ibuprofen 800 MG 03/17/2019 12:00:00 A M EST 1.0 {tablet} suspended Ibuprofen 800 MG eCW1 ([facility]) Chlorhexidine Gluconate 0.12 % UNK 03/17/2019 12:00:00 AM EST active 15 ml eCW1 ([facility]) chlorhexidine gluconate 1.2 MG/ML Mouthwash Chlorhexid ine Gluconate 0.12 % Chlorhexidine Gluconate 0.12 % 03/17/2019 12:00:00 AM EST 15.0 {ml} suspended Chlorhexidine Gluconate 0.12 % e CW1 ([facility]) chlorhexidine gluconate 1.2 MG/ML Mouthwash Chlorhexid ine Gluconate 0.12 % Chlorhexidine Gluconate 0.12 % 03/17/2019 12:00:00 AM EST 15.0 {ml} suspended Chlorhexidine Gluconate 0.12 % e CW1 ([facility]) Ibuprofen 800 MG Oral Tablet Ibuprofen 800 MG 03/17/2019 12:00:00 A M EST 1.0 {tablet} suspended Ibuprofen 800 MG eCW1 ([facility]) Ibuprofen 800 MG Oral Tablet Ibuprofen 800 MG 03/17/2019 12:00:00 A M EST 1.0 {tablet} suspended Ibuprofen 800 MG eCW1 ([facility]) Ibuprofen 800 MG Oral Tablet Ibuprofen 800 MG 03/17/2019 12:00:00 A M EST 1.0 {tablet} suspended Ibuprofen 800 MG eCW1 ([facility]) chlorhexidine gluconate 1.2 MG/ML Mouthwash Chlorhexid ine Gluconate 0.12 % Chlorhexidine Gluconate 0.12 % 03/17/2019 12:00:00 AM EST 15.0 {ml} suspended Chlorhexidine Gluconate 0.12 % e 1 ([facility]) chlorhexidine gluconate 1.2 MG/ML Mouthwash Chlorhexid ine Gluconate 0.12 % Chlorhexidine Gluconate 0.12 % 03/17/2019 12:00:00 AM EST 15.0 {ml} suspended Chlorhexidine Gluconate 0.12 % e 1 ([facility]) chlorhexidine gluconate 1.2 MG/ML Mouthwash Chlorhexid ine Gluconate 0.12 % Chlorhexidine Gluconate 0.12 % 03/17/2019 12:00:00 AM EST 15.0 {ml} suspended Chlorhexidine Gluconate 0.12 % e 1 ([facility]) chlorhexidine gluconate 1.2 MG/ML Mouthwash Chlorhexid ine Gluconate 0.12 % Chlorhexidine Gluconate 0.12 % 03/17/2019 12:00:00 AM EST 15.0 {ml} suspended Chlorhexidine Gluconate 0.12 % e 1 ([facility]) chlorhexidine gluconate 1.2 MG/ML Mouthwash Chlorhexid ine Gluconate 0.12 % Chlorhexidine Gluconate 0.12 % 03/17/2019 12:00:00 AM EST 15.0 {ml} suspended Chlorhexidine Gluconate 0.12 % e CW1 ([facility]) chlorhexidine gluconate 1.2 MG/ML Mouthwash Chlorhexid ine Gluconate 0.12 % Chlorhexidine Gluconate 0.12 % 03/17/2019 12:00:00 AM EST 15.0 {ml} suspended Chlorhexidine Gluconate 0.12 % e CW1 ([facility]) Ibuprofen 800 MG Oral Tablet Ibuprofen 800 MG 03/17/2019 12:00:00 A M EST 1.0 {tablet} suspended Ibuprofen 800 MG eCW1 ([facility]) Ibuprofen 800 MG Oral Tablet Ibuprofen 800 MG 03/17/2019 12:00:00 A M EST 1.0 {tablet} suspended Ibuprofen 800 MG eCW1 ([facility]) Ibuprofen 800 MG Oral Tablet Ibuprofen 800 MG 03/17/2019 12:00:00 A M EST 1.0 {tablet} suspended Ibuprofen 800 MG eCW1 ([facility]) Ibuprofen 800 MG Oral Tablet Ibuprofen 800 MG 03/17/2019 12:00:00 A M EST 1.0 {tablet} suspended Ibuprofen 800 MG eCW1 ([facility]) chlorhexidine gluconate 1.2 MG/ML Mouthwash Chlorhexid ine Gluconate 0.12 % Chlorhexidine Gluconate 0.12 % 03/17/2019 12:00:00 AM EST 15.0 {ml} suspended Chlorhexidine Gluconate 0.12 % e CW1 ([facility]) chlorhexidine gluconate 1.2 MG/ML Mouthwash Chlorhexid ine Gluconate 0.12 % Chlorhexidine Gluconate 0.12 % 03/17/2019 12:00:00 AM EST 15.0 {ml} suspended Chlorhexidine Gluconate 0.12 % e CW1 ([facility]) Insurance Providers Payer name Policy type / Coverage type Policy ID Covered democrat ID Covered democrat's relationship to mcfadden Policy Mcfadden Plan Information [facility] FEDERAL EMPLOYEE PROGRAM [id number] SP [id number] [facility] FEDERAL EMPLOYEE PROGRAM [id number] SP [id number] EXCELLUS C [id number] Self [id number] [facility] FEDERAL B [id number] S [id number] ANSI-Commercial [id number] [employer] FEDERAL EMPLOYEE PROGRAM [id number] SP [id number] [facility] Health Maintenance Organization (HMO) [id number] Self [id number] [facility] [employer] Maintenance Organization (HMO) [id number] Self [id number] [employer] FEDERAL [id number] SP [id number] [facility] Maintenance Organization (HMO) [id number] Self [id number] [employer] FEDERAL [id number] SP [id number] Federal BC/BS Commercial [id number] Self [id number] Federal BC/BS Commercial Self BC BS [place] FEDERAL P [id number] S [id number] BC [place] FEDERAL [id number] SP [id number] [employer] P [id number] S [id number] SELF PAY UNAVAILABLE SP UNAVAILA BLE [id number] Problems, Conditions, and Diagnoses Code Display Name Description Problem Type Effective Dates Data Source(s) D50.9 [id number] Iron deficiency anemia, unspecif ied iron deficiency anemia type Problem 01/15/2020 12:00:00 AM EST eCW1 ([facility]) E11.9 [id number] Type 2 diabetes mellitus without complica tions Problem 01/15/2020 12:00:00 AM EST eCW1 ([facility]) Z79.4 [id number] [employer] (current) use of insulin Proble 01/15/2020 12:00:00 AM EST eCW1 ([facility]) [id number] Urticaria due to cold and heat Urticaria due to cold a nd heat Problem 01/13/2020 12:00:00 AM EST MEDENT ([facility] ) N93.9 [id number] Abnormal uterine bleeding (AUB) Problem 12/30/2019 12:00:00 AM EDT eCW1 ([facility]) R92.8 [id number] Abnormal mammogram of right breast Proble m 12/23/2019 12:00:00 AM EDT eCW1 ([facility]) E66.01 [id number] Obesity, morbid, BMI 40.0-49.9 Problem 02/25/2019 12:00:00 AM EST eCW1 ([facility]) E66.01 [id number] Obesity, morbid, BMI 40.0-49.9 Problem 02/25/2019 12:00:00 AM EST eCW1 ([facility]) Surgeries/Procedures Procedure Description Date Indications Data Source(s) BRNCDILAT RSPSE SPMTRY PRE&POST-BRNCDILAT ADMN 020 12:00:00 AM EST MEDENT ([facility]) PERCUTANEOUS TESTS W/ALLERGENIC EXTRACTS 01/13/2020 12 :00:00 AM EST MEDENT ([facility]) INTRACUTANEOUS TESTS W/ALLERGENIC EXTRACTS 01/13/2020 12:00:00 AM EST MEDENT ([facility]) STREP A ASSAY W/OPTIC 03/17/2019 12:00:00 AM EST eCW1 ([facility]) Influenza A+B 03/17/2019 12:00:00 AM EST eCW1 ([facility]) Results ID Date Data Source [id number] 03/26/2020 12:00:00 AM EST [facility] Name Value Range Interpretation Code Description Data Shelby rce(s) Supporting Document(s) SARS coronavirus 2 RNA [Presence] in Res piratory specimen by RHEA with probe detection POSITIVE [facility] This lab was ordered by [facility] and reported by [facility]. ID Date Data Source [id number] 03/26/2020 12:00:00 AM EST [facility] Name Value Range Interpretation Code Description Data Shelby rce(s) Supporting Document(s) Carestart Rapid COVID Antigen Test Negative [facility] This lab was reported by [facility]. ID Date Data Source [id number] 02/11/2020 12:00:00 AM EST [facility] Name Value Range Interpretation Code Description Data Shelby rce(s) Supporting Document(s) SARS coronavirus 2 Ag [facility] This lab was ordered by [facility] and reported by [facility]. ID Date Data Source [id number] 02/09/2020 01:00:00 PM EST [facility] Name Value Range Interpretation Code Description Data Shelby rce(s) Supporting Document(s) SARS coronavirus 2 RNA [facility] This lab was ordered by [facility] and reported by [facility]. Procedure Social History Code Duration Value Status Description Data Source(s ) Smoking 03/18/2020 12:00:00 AM EST Never Smoker completed Never S moker eCW1 ([facility]) Smoking 03/18/2020 12:00:00 AM EST Never Smoker completed Never S moker eCW1 ([facility]) Smoking 03/18/2020 12:00:00 AM EST Never Smoker completed Never S moker eCW1 ([facility]) Smoking 02/16/2020 12:00:00 AM EST Never Smoker completed Never S moker eCW1 ([facility]) Smoking 02/16/2020 12:00:00 AM EST Never Smoker completed Never S moker eCW1 ([facility]) Smoking 02/16/2020 12:00:00 AM EST Never Smoker completed Never S moker eCW1 ([facility]) Smoking 02/16/2020 12:00:00 AM EST Never Smoker completed Never S moker eCW1 ([facility]) Smoking 02/16/2020 12:00:00 AM EST Never Smoker completed Never S moker eCW1 ([facility]) Smoking 01/29/2020 12:00:00 AM EST Never Smoker completed Never S moker eCW1 ([facility]) Smoking 01/15/2020 12:00:00 AM EST Never Smoker completed Never S moker eCW1 ([facility]) Smoking 01/13/2020 12:00:00 AM EST Patient has never smoked co mpleted Patient has never smoked MEDENT ([facility] ) Smoking 01/01/2020 12:00:00 AM EDT Never Smoker completed Never S moker eCW1 ([facility]) Smoking 01/01/2020 12:00:00 AM EDT Never Smoker completed Never S moker eCW1 ([facility]) Smoking 01/01/2020 12:00:00 AM EDT Never Smoker completed Never S moker eCW1 ([facility]) Smoking 04/15/2019 12:00:00 AM EST Never Smoker completed Never S moker eCW1 ([facility]) Vital Signs ID Date Data Source UNK Name Value Range Interpretation Code Description Data Source(s) Diastolic blood pressure 79 mm[Hg] 79 mm[Hg] eCW1 ([facility]) Systolic blood pressure 126 mm[Hg] 126 mm[Hg] e CW1 ([facility]) Body temperature 98.0 [degF] 98.0 [degF] eCW1 ( [facility]) Respiratory rate 17 /min 17 /min eCW1 ([facility]) Heart rate 82 /min 82 /min eCW1 ([facility]) Body mass index (BMI) [Ratio] 46.86 kg/m2 46.86 kg/m2 W1 ([facility]) Body height 67 [in_i] 67 [in_i] eCW1 ([facility]) Body weight 299.2 [lb_av] 299.2 [lb_av] eCW1 ([facility]) Diastolic blood pressure 93 mm[Hg] 93 mm[Hg] eCW1 ([facility]) Systolic blood pressure 152 mm[Hg] 152 mm[Hg] e CW1 ([facility]) Body temperature 98.1 [degF] 98.1 [degF] eCW1 ( [facility]) Respiratory rate 18 /min 18 /min eCW1 ([facility]) Heart rate 80 /min 80 /min eCW1 ([facility]) Body mass index (BMI) [Ratio] 46.82 kg/m2 46.82 kg/m2 eCW1 ([facility]) Body height 67 [in_i] 67 [in_i] eCW1 ([facility]) Body weight 299 [lb_av] 299 [lb_av] eCW1 ([facility]) Body mass index (BMI) [Ratio] 37.2 kg/m2 37.2 k g/m2 MEDENT ([facility]) Body height 69 [in_i] 69 [in_i] MEDENT ([facility], [facility]) 5'9" Body weight 252.00 [lb_av] 252.00 [lb_av] MEDEN T ([facility], [facility]) Body temperature 98.6 [degF] 98.6 [degF] MEDENT ([facility], [facility]) Oxygen saturation in Arterial blood by Pulse oximetry 96 % 96 % MEDENT ([facility], [facility]) Respiratory rate 18 /min 18 /min MEDENT ( [facility], [facility]) Heart rate 92 /min 92 /min MEDENT ([facility], [facility]) Diastolic blood pressure 95 mm[Hg] 95 mm[Hg] MEDENT ([facility], [facility]) Systolic blood pressure 147 mm[Hg] 147 mm[Hg] M EDENT ([facility], [facility]) Diastolic blood pressure 92 mm[Hg] 92 mm[Hg] eCW1 ([facility]) Systolic blood pressure 140 mm[Hg] 140 mm[Hg] e CW1 ([facility]) Body mass index (BMI) [Ratio] 47.92 kg/m2 47.92 kg/m2 W1 ([facility]) Body height 67 [in_i] 67 [in_i] eCW1 ([facility]) Body weight 138.8 kg 138.8 kg W1 ([facility]) Body weight 306 [lb_av] 306 [lb_av] eCW1 ([facility]) Diastolic blood pressure 82 mm[Hg] 82 mm[Hg] eCW1 ([facility]) Systolic blood pressure 126 mm[Hg] 126 mm[Hg] e CW1 ([facility]) Body temperature 98.2 [degF] 98.2 [degF] eCW1 ( [facility]) Respiratory rate 18 /min 18 /min eCW1 ([facility]) Heart rate 95 /min 95 /min eCW1 ([facility]) Body mass index (BMI) [Ratio] 47.45 kg/m2 47.45 kg/m2 eCW1 ([facility]) Body height 67 [in_i] 67 [in_i] eCW1 ([facility]) Body weight 303 [lb_av] 303 [lb_av] eCW1 ([facility]) Body mass index (BMI) [Ratio] 45.0 kg/m2 45.0 k g/m2 MEDENT ([facility]) Diastolic blood pressure 84 mm[Hg] 84 mm[Hg] MEDENT ([facility]) Systolic blood pressure 127 mm[Hg] 127 mm[Hg] M EDENT ([facility]) Respiratory rate 18 /min 18 /min MEDENT ( [facility]) Heart rate 76 /min 76 /min MED[facility] ([facility] Body height 68.5 [in_i] 68.5 [in_i] MEDENT [facility] 5'8.50" Body weight 300.12 [lb_av] 300.12 [lb_av] MEDEN T ([facility]) Diastolic blood pressure 88 mm[Hg] 88 mm[Hg] eCW1 ([facility]) Systolic blood pressure 140 mm[Hg] 140 mm[Hg] e CW1 ([facility]) Body mass index (BMI) [Ratio] 47.29 kg/m2 47.29 kg/m2 W1 ([facility]) Body height 67 [in_i] 67 [in_i] eCW1 ([facility]) Body weight 136.98 kg 136.98 kg eCW1 ([facility]) Body weight 302 [lb_av] 302 [lb_av] eCW1 ([facility]) Heart rate 86 /min 86 /min eCW1 ([facility]) Body mass index (BMI) [Ratio] 46.98 kg/m2 46.98 kg/m2 W1 ([facility]) Body height 67 [in_us] 67 [in_us] eCW1 ([facility]) Body weight Measured 300 [lb_av] 300 [lb_av] eC W1 ([facility]) Diastolic blood pressure 77 mm[Hg] 77 mm[Hg] eCW1 ([facility]) Systolic blood pressure 132 mm[Hg] 132 mm[Hg] e CW1 ([facility]) Body temperature 97.7 [degF] 97.7 [degF] eCW1 ( [facility]) Respiratory rate 18 /min 18 /min eCW1 ([facility]) Diastolic blood pressure 88 mm[Hg] 88 mm[Hg] eCW1 ([facility]) Systolic blood pressure 142 mm[Hg] 142 mm[Hg] e CW1 ([facility]) Body temperature 98.8 [degF] 98.8 [degF] eCW1 ( [facility]) Respiratory rate 18 /min 18 /min eCW1 ([facility]) Heart rate 84 /min 84 /min eCW1 ([facility]) Body mass index (BMI) [Ratio] 46.98 kg/m2 46.98 kg/m2 eCW1 ([facility]) Body height 67 [in_us] 67 [in_us] eCW1 ([facility]) Body weight Measured 300 [lb_av] 300 [lb_av] eC W1 ([facility]) Diastolic blood pressure 80 mm[Hg] 80 mm[Hg] eCW1 ([facility]) Systolic blood pressure 151 mm[Hg] 151 mm[Hg] e CW1 ([facility]) Body temperature 98.4 [degF] 98.4 [degF] eCW1 ( [facility]) Respiratory rate 18 /min 18 /min eCW1 ([facility]) Heart rate 101 /min 101 /min eCW1 ([facility]) Body mass index (BMI) [Ratio] 47.14 kg/m2 47.14 kg/m2 eCW1 ([facility]) Body height 67 [in_us] 67 [in_us] eCW1 ([facility]) Body weight Measured 301 [lb_av] 301 [lb_av] eC W1 ([facility]) Patient Treatment Plan of Care Planned Activity Planned Date Details Description Data Source (s) 1 ML Leuprolide Acetate 3.75 MG/ML Prefilled Syringe [ Lupron] 02/27/2020 12:00:00 AM EST eCW1 ([facility]) 1 ML Leuprolide Acetate 3.75 MG/ML Prefilled Syringe [ Lupron] 02/27/2020 12:00:00 AM EST eCW1 ([facility]) 1 ML Leuprolide Acetate 3.75 MG/ML Prefilled Syringe [ Lupron] 02/27/2020 12:00:00 AM EST eCW1 ([facility]) Metformin hydrochloride 500 MG Oral Tablet 01/15/2020 12:00:[address] eCW1 ([facility]) Azelastine hydrochloride 0.5 MG/ML Ophthalmic Solution 04/15/2019 12:00:00 AM EST eCW1 ([facility]) Azelastine hydrochloride 0.5 MG/ML Ophthalmic Solution 04/15/2019 12:00:00 AM EST eCW1 ([facility]) Ibuprofen 800 MG 03/17/2019 12:00:00 AM EST eCW1 ([facility]) Chlorhexidine Gluconate 0.12 % 03/17/2019 12:00:00 AM EST eCW1 ([facility])
--- OUTSIDE RECORDS SUMMARY | 2020-04-11 15:14 | CCD ---
Author Author [facility] Organization [facility] Address Unknown Phone Unavailable Care Team Providers Care French Polisher Name Role Phone MURIEL MELLO MD Unavailable [...] Unavailable OrestesAmarilys MD Unavailable Unavailable Orestes, Amarilys Pitts MD [...] Amarilyssawyer Pitts MD Unavailable Unavailable Orestes, Amarilys Gisselle [...] is protected by Article 27-F of the [facility] Public Health law. If you continue you may have access to information: Regarding HIV / AIDS; Provided by facilities licensed or operated by the [facility] Office of Mental Health; or Provided by the [facility] Office for People With Developmental Disabilities. If such information is present, then the following [facility] mandated warning applies: This information has been [...] law may result in a fine or senior care sentence or both. A general authorization for the release of medical or other information is NOT sufficient authorization for further disc losure. Allergies and Adverse Reactions Type Description Substance Reaction Status Data Source(s ) Drug allergy Latex Gloves Drug allergy Anaphylaxis Active eCW1 ( [facility]) Drug allergy Bactrim sulfamethoxazole / trimethoprim Hives, itchin g Active eCW1 ([facility]) Biaxin Biaxin Clarithromycin 250 MG Oral Tablet [Biaxin] Rash Active eCW1 ([facility]) Clindamycin HCl Clindamycin HCl Clindamycin HCl Anaphylaxis Active eCW1 ([facility]) bananas, pineapple bananas, pineapple bananas, pineapple Anaphylaxis Active eCW1 ([facility]) Kiwi Kiwi Kiwi Anaphylaxis Active eCW1 ([facility]) Amoxicillin-Pot Clavulanate Amoxicillin-Pot Clavulanate Amox icillin-Pot Clavulanate Rash Active eCW1 ([facility]) contrast dye contrast dye contrast dye Unknown Active eCW1 ([facility] Drug allergy shellfish, seafood shellfish, seafood Anaphylaxis Activ e eCW1 ([facility]) bees bees bees Anaphylaxis Active eCW1 ([facility]) Biaxin Biaxin Biaxin Rash Active eCW1 ([facility]) Carmelo Rhodes Kiwi Anaphylaxis Active eCW1 ([facility]) contrast dye contrast dye contrast dye Unknown Active eCW1 ([facility]) Amoxicillin-Pot Clavulanate Amoxicillin-Pot Clavulanate Amox icillin-Pot Clavulanate Rash Active eCW1 ([facility]) Drug allergy shellfish, seafood shellfish, seafood Anaphylaxis Activ e eCW1 ([facility]) bees bees bees Anaphylaxis Active eCW1 ([facility]) bananas, pineapple bananas, pineapple bananas, pineapple Anaphylaxis Active eCW1 ([facility]) Biaxin Biaxin Clarithromycin 250 MG Oral Tablet [Biaxin] Rash Active eCW1 ([facility]) bananas, pineapple bananas, pineapple bananas, pineapple Anaphylaxis Active eCW1 ([facility]) Carmelo Rhodes Kiwi Anaphylaxis Active eCW1 ([facility]) Amoxicillin-Pot Clavulanate Amoxicillin-Pot Clavulanate Amox icillin-Pot Clavulanate Rash Active eCW1 ([facility]) contrast dye contrast dye contrast dye Unknown Active eCW1 ([facility]) Drug allergy shellfish, seafood shellfish, seafood Anaphylaxis Activ e eCW1 ([facility]) bees bees bees Anaphylaxis Active eCW1 ([facility]) Drug Allergy Drug Allergy NKDA MEDENT ([facility]) Family History Family Member Name Family Member Gender Family Member Status Date o f Status Description Data Source(s) Unknown Unknown Problem MEDENT ([facility]) Unknown Female Problem MEDENT ([facility]) Unknown Female Problem MEDENT ([facility]) Unknown Female Problem MEDENT ([facility]) Encounters Encounter Providers Location Date Indications Data Source(s ) Unknown [address] [facility] [address] 03/31/2020 12:00:00 AM EST eCW1 ([facility]) Outpatient [address] [facility] [place] [address] 03/18/2020 12:00:00 AM EST [facility] [place] [address] [facility] [place] [address] 02/25/2020 12:00:00 AM EST [facility]CW1 [facility] Unknown [address] [facility] [place] [address] 02/25/2020 12:00:00 AM EST [facility]CW1 [facility] Outpatient Attender: Gisselle Carlisle MDReferrer: Gisselle Carlisle MD 02/23/2020 12:00:00 AM [facility] Outpatient Attender: Gisselle Carlisle MDReferrer: Gisselle Carlisle MD 02/23/2020 12:00:00 AM [facility] Outpatient Attender: Gisselle Carlisle MD 02/23/2020 12:00:00 AM [facility] Outpatient [address] [facility] [place] [address] 02/16/2020 12:00:00 AM EST [facility] Outpatient Attender: Leslee mccoy 02/11/2020 01:40:00 PM EST MEDENT ([facility]) Unknown [address] [facility] [address] 02/09/2020 12:00:00 AM EST eCW1 ([facility] Outpatient [address] [facility] [place] [address] 02/09/2020 12:00:00 AM EST eCW1 ([facility] Unknown [address] [facility] [place] [address] 02/02/2020 12:00:00 AM EST eCW1 ([facility] Unknown [address] [facility] [place] [address] 01/20/2020 12:00:00 AM EST eCW1 ([facility] [place] [address] [facility] [address] [place] [address] 01/15/2020 12:00:00 AM EST [facility]CW[facility]) Outpatient Attender: MURIEL MELLO MD Main Office 01/13/2020 08:30:00 AM EST MEDENT ([facility]) Unknown [address] [facility] [place] [address] 01/07/2020 12:00:00 AM EDT eCW1 [facility]) Unknown [address] [facility] [place] [address] 01/07/2020 12:00:00 AM EDT [facility]CW1 [facility]) Outpatient [address] [facility] [address] 01/01/2020 12:00:00 AM EDT eCW1 ([facility]) Unknown [address] [facility] [place] [address] 12/23/2019 12:00:00 AM EDT eCW1 ([facility]) [facility] Ler [address] [facility] [place] [address] 04/15/2019 12:00:00 AM EST eCW1 ([facility]) [facility] [address] [place] [address] 03/17/2019 12:00:00 AM EST eCW1 ([facility]) [facility] Ler [address] [facility] [place] [address] 02/25/2019 12:00:00 AM EST [facility]CW1 [facility] Ler[place] [address] [facility] [place] [address] 02/25/2019 12:00:00 AM EST eCW1 ([facility]) Medications Medication Brand Name Start Date Product Form Dose Route Admi nistrative Instructions Pharmacy Instructions Status Indications Reaction Description Data Source(s) 1 ML Leuprolide Acetate 3.75 MG/ML Prefi lled Syringe [Lupron] Lupron Depot (1- Month) 3.75 MG Lupron Depot (1-Month) 3.75 MG 02/27/2020 12:00:00 AM EST active Lupron Depot (1-Month) 3. 75 MG eCW1 ([facility]) 1 ML Leuprolide Acetate 3.75 MG/ML Prefi lled Syringe [Lupron] Lupron Depot (1- Month) 3.75 MG Lupron Depot (1-Month) 3.75 MG 02/27/2020 12:00:00 AM EST active Lupron Depot (1-Month) 3. 75 MG eCW1 ([facility]) 1 ML Leuprolide Acetate 3.75 MG/ML Prefi lled Syringe [Lupron] Lupron Depot (1- Month) 3.75 MG Lupron Depot (1-Month) 3.75 MG 02/27/2020 12:00:00 AM EST active Lupron Depot (1-Month) 3. 75 MG eCW1 ([facility]) 1 ML Leuprolide Acetate 3.75 MG/ML Prefi lled Syringe [Lupron] Lupron Depot (1- Month) 3.75 MG Lupron Depot (1-Month) 3.75 MG 02/27/2020 12:00:00 AM EST active Lupron Depot (1-Month) 3. 75 MG eCW1 ([facility]) 1 ML Leuprolide Acetate 3.75 MG/ML Prefi lled Syringe [Lupron] Lupron Depot (1- Month) 3.75 MG Lupron Depot (1-Month) 3.75 MG 02/27/2020 12:00:00 AM EST active Lupron Depot (1-Month) 3. 75 MG eCW1 ([facility]) 1 ML Leuprolide Acetate 3.75 MG/ML Prefi lled Syringe [Lupron] Lupron Depot (1- Month) 3.75 MG Lupron Depot (1-Month) 3.75 MG 02/27/2020 12:00:00 AM EST active Lupron Depot (1-Month) 3. 75 MG eCW1 ([facility]) Metformin hydrochloride 500 MG Oral Tablet Metformin H Cl 500 MG Metformin HCl 500 MG 01/15/2020 12:00:00 AM EST 1.0 {tablet_with_a_meal} active Metformin HCl 500 MG eCW1 ([facility]) Metformin hydrochloride 500 MG Oral Tablet Metformin H Cl 500 MG Metformin HCl 500 MG 01/15/2020 12:00:00 AM EST 1.0 {tablet_with_a_meal} active Metformin HCl 500 MG eCW1 ([facility]) Metformin hydrochloride 500 MG Oral Tablet Metformin H Cl 500 MG Metformin HCl 500 MG 01/15/2020 12:00:00 AM EST 1.0 {tablet_with_a_meal} active Metformin HCl 500 MG eCW1 ([facility]) Metformin hydrochloride 500 MG Oral Tablet Metformin H Cl 500 MG Metformin HCl 500 MG 01/15/2020 12:00:00 AM EST 1.0 {tablet_with_a_meal} active Metformin HCl 500 MG eCW1 ([facility]) Azelastine HCL (Nasal) Azelastine HCL (Nasal) 01/13/2020 12:00:[address] active MEDENT ([facility] Azelastine hydrochloride 0.5 MG/ML Ophthalmic Solution Azelastine HCl 0.05 % Azelastine HCl 0.05 % 04/15/2019 12:00:00 AM EST active Azelastine HCl 0.05 % eCW1 ([facility]) Azelastine hydrochloride 0.5 MG/ML Ophthalmic Solution Azelastine HCl 0.05 % Azelastine HCl 0.05 % 04/15/2019 12:00:00 AM EST active Azelastine HCl 0.05 % eCW1 ([facility]) Azelastine hydrochloride 0.5 MG/ML Ophthalmic Solution Azelastine HCl 0.05 % Azelastine HCl 0.05 % 04/15/2019 12:00:00 AM EST active Azelastine HCl 0.05 % eCW1 ([facility]) Azelastine hydrochloride 0.5 MG/ML Ophthalmic Solution Azelastine HCl 0.05 % Azelastine HCl 0.05 % 04/15/2019 12:00:00 AM EST active Azelastine HCl 0.05 % eCW1 ([facility]) Azelastine hydrochloride 0.5 MG/ML Ophthalmic Solution Azelastine HCl 0.05 % Azelastine HCl 0.05 % 04/15/2019 12:00:00 AM EST active Azelastine HCl 0.05 % eCW1 ([facility]) Azelastine hydrochloride 0.5 MG/ML Ophthalmic Solution Azelastine HCl 0.05 % Azelastine HCl 0.05 % 04/15/2019 12:00:00 AM EST active Azelastine HCl 0.05 % eCW1 ([facility]) Azelastine hydrochloride 0.5 MG/ML Ophthalmic Solution Azelastine HCl 0.05 % Azelastine HCl 0.05 % 04/15/2019 12:00:00 AM EST active Azelastine HCl 0.05 % eCW1 ([facility]) Azelastine hydrochloride 0.5 MG/ML Ophthalmic Solution Azelastine HCl 0.05 % Azelastine HCl 0.05 % 04/15/2019 12:00:00 AM EST active Azelastine HCl 0.05 % eCW1 ([facility]) Azelastine hydrochloride 0.5 MG/ML Ophthalmic Solution Azelastine HCl 0.05 % Azelastine HCl 0.05 % 04/15/2019 12:00:00 AM EST active Azelastine HCl 0.05 % eCW1 ([facility]) Azelastine hydrochloride 0.5 MG/ML Ophthalmic Solution Azelastine HCl 0.05 % Azelastine HCl 0.05 % 04/15/2019 12:00:00 AM EST active Azelastine HCl 0.05 % eCW1 ([facility]) Azelastine hydrochloride 0.5 MG/ML Ophthalmic Solution Azelastine HCl 0.05 % Azelastine HCl 0.05 % 04/15/2019 12:00:00 AM EST active Azelastine HCl 0.05 % eCW1 ([facility]) Azelastine hydrochloride 0.5 MG/ML Ophthalmic Solution Azelastine HCl 0.05 % Azelastine HCl 0.05 % 04/15/2019 12:00:00 AM EST active 1-2 drops into affected eye eCW1 ([facility]) Azelastine hydrochloride 0.5 MG/ML Ophthalmic Solution Azelastine HCl 0.05 % Azelastine HCl 0.05 % 04/15/2019 12:00:00 AM EST active Azelastine HCl 0.05 % eCW1 ([facility]) Azelastine hydrochloride 0.5 MG/ML Ophthalmic Solution Azelastine HCl 0.05 % Azelastine HCl 0.05 % 04/15/2019 12:00:00 AM EST active Azelastine HCl 0.05 % eCW1 ([facility]) Azelastine hydrochloride 0.5 MG/ML Ophthalmic Solution Azelastine HCl 0.05 % Azelastine HCl 0.05 % 04/15/2019 12:00:00 AM EST active Azelastine HCl 0.05 % eCW1 ([facility]) Ibuprofen 800 MG Oral Tablet Ibuprofen 800 MG 03/17/2019 12:00:[address] suspended 1 tablet eCW1 ([facility]) Ibuprofen 800 MG Oral Tablet Ibuprofen 800 MG 03/17/2019 12:00:00 A M EST 1.0 {tablet} suspended Ibuprofen 800 MG eCW1 ([facility]) Ibuprofen 800 MG UNK 03/17/2019 12:00:00 AM EST a ctive 1 tablet eCW1 ([facility]) Ibuprofen 800 MG Oral Tablet Ibuprofen 800 MG 03/17/2019 12:00:00 A M EST 1.0 {tablet} suspended Ibuprofen 800 MG eCW1 ([facility]) chlorhexidine gluconate 1.2 MG/ML Mouthwash Chlorhexid ine Gluconate 0.12 % Chlorhexidine Gluconate 0.12 % 03/17/2019 12:00:00 AM EST 15.0 {ml} suspended Chlorhexidine Gluconate 0.12 % e CW1 ([facility]) Ibuprofen 800 MG Oral Tablet Ibuprofen 800 MG 03/17/2019 12:00:00 A M EST 1.0 {tablet} suspended Ibuprofen 800 MG eCW1 ([facility]) chlorhexidine gluconate 1.2 MG/ML Mouthwash Chlorhexid ine Gluconate 0.12 % Chlorhexidine Gluconate 0.12 % 03/17/2019 12:00:00 AM EST 15.0 {ml} suspended Chlorhexidine Gluconate 0.12 % e CW1 ([facility]) Ibuprofen 800 MG Oral Tablet Ibuprofen 800 MG 03/17/2019 12:00:00 A M EST 1.0 {tablet} suspended Ibuprofen 800 MG eCW1 ([facility]) chlorhexidine gluconate 1.2 MG/ML Mouthwash Chlorhexid ine Gluconate 0.12 % Chlorhexidine Gluconate 0.12 % 03/17/2019 12:00:00 AM EST suspended 15 ml eCW1 ([facility]) chlorhexidine gluconate 1.2 MG/ML Mouthwash Chlorhexid ine Gluconate 0.12 % Chlorhexidine Gluconate 0.12 % 03/17/2019 12:00:00 AM EST 15.0 {ml} suspended Chlorhexidine Gluconate 0.12 % e CW1 ([facility]) chlorhexidine gluconate 1.2 MG/ML Mouthwash Chlorhexid ine Gluconate 0.12 % Chlorhexidine Gluconate 0.12 % 03/17/2019 12:00:00 AM EST 15.0 {ml} suspended Chlorhexidine Gluconate 0.12 % e CW1 ([facility]) Ibuprofen 800 MG Oral Tablet Ibuprofen 800 MG 03/17/2019 12:00:00 A M EST 1.0 {tablet} suspended Ibuprofen 800 MG eCW1 ([facility]) Ibuprofen 800 MG Oral Tablet Ibuprofen 800 MG 03/17/2019 12:00:00 A M EST 1.0 {tablet} suspended Ibuprofen 800 MG eCW1 ([facility]) Ibuprofen 800 MG Oral Tablet Ibuprofen 800 MG 03/17/2019 12:00:00 A M EST 1.0 {tablet} suspended Ibuprofen 800 MG eCW1 ([facility]) Chlorhexidine Gluconate 0.12 % UNK 03/17/2019 12:00:00 AM EST active 15 ml eCW1 ([facility]) chlorhexidine gluconate 1.2 MG/ML Mouthwash Chlorhexid ine Gluconate 0.12 % Chlorhexidine Gluconate 0.12 % 03/17/2019 12:00:00 AM EST 15.0 {ml} suspended Chlorhexidine Gluconate 0.12 % e CW1 ([facility]) chlorhexidine gluconate 1.2 MG/ML Mouthwash Chlorhexid ine Gluconate 0.12 % Chlorhexidine Gluconate 0.12 % 03/17/2019 12:00:00 AM EST 15.0 {ml} suspended Chlorhexidine Gluconate 0.12 % e CW1 ([facility]) Ibuprofen 800 MG Oral Tablet Ibuprofen 800 MG 03/17/2019 12:00:00 A M EST 1.0 {tablet} suspended Ibuprofen 800 MG eCW1 ([facility]) Ibuprofen 800 MG Oral Tablet Ibuprofen 800 MG 03/17/2019 12:00:00 A M EST 1.0 {tablet} suspended Ibuprofen 800 MG eCW1 ([facility]) Ibuprofen 800 MG Oral Tablet Ibuprofen 800 MG 03/17/2019 12:00:00 A M EST 1.0 {tablet} suspended Ibuprofen 800 MG eCW1 ([facility]) chlorhexidine gluconate 1.2 MG/ML Mouthwash Chlorhexid ine Gluconate 0.12 % Chlorhexidine Gluconate 0.12 % 03/17/2019 12:00:00 AM EST 15.0 {ml} suspended Chlorhexidine Gluconate 0.12 % e CW1 ([facility]) chlorhexidine gluconate 1.2 MG/ML Mouthwash Chlorhexid ine Gluconate 0.12 % Chlorhexidine Gluconate 0.12 % 03/17/2019 12:00:00 AM EST 15.0 {ml} suspended Chlorhexidine Gluconate 0.12 % e CW1 ([facility]) chlorhexidine gluconate 1.2 MG/ML Mouthwash Chlorhexid ine Gluconate 0.12 % Chlorhexidine Gluconate 0.12 % 03/17/2019 12:00:00 AM EST 15.0 {ml} suspended Chlorhexidine Gluconate 0.12 % e CW1 ([facility]) chlorhexidine gluconate 1.2 MG/ML Mouthwash Chlorhexid ine Gluconate 0.12 % Chlorhexidine Gluconate 0.12 % 03/17/2019 12:00:00 AM EST 15.0 {ml} suspended Chlorhexidine Gluconate 0.12 % e CW1 ([facility]) chlorhexidine gluconate 1.2 MG/ML Mouthwash Chlorhexid ine Gluconate 0.12 % Chlorhexidine Gluconate 0.12 % 03/17/2019 12:00:00 AM EST 15.0 {ml} suspended Chlorhexidine Gluconate 0.12 % e CW1 ([facility]) chlorhexidine gluconate 1.2 MG/ML Mouthwash Chlorhexid ine Gluconate 0.12 % Chlorhexidine Gluconate 0.12 % 03/17/2019 12:00:00 AM EST 15.0 {ml} suspended Chlorhexidine Gluconate 0.12 % e CW1 ([facility]) Ibuprofen 800 MG Oral Tablet Ibuprofen 800 MG 03/17/2019 12:00:00 A M EST 1.0 {tablet} suspended Ibuprofen 800 MG eCW1 ([facility]) Ibuprofen 800 MG Oral Tablet Ibuprofen 800 MG 03/17/2019 12:00:00 A M EST 1.0 {tablet} suspended Ibuprofen 800 MG eCW1 ([facility]) Ibuprofen 800 MG Oral Tablet Ibuprofen 800 MG 03/17/2019 12:00:00 A M EST 1.0 {tablet} suspended Ibuprofen 800 MG eCW1 ([facility]) Ibuprofen 800 MG Oral Tablet Ibuprofen 800 MG 03/17/2019 12:00:00 A M EST 1.0 {tablet} suspended Ibuprofen 800 MG eCW1 ([facility]) chlorhexidine gluconate 1.2 MG/ML Mouthwash Chlorhexid ine Gluconate 0.12 % Chlorhexidine Gluconate 0.12 % 03/17/2019 12:00:00 AM EST 15.0 {ml} suspended Chlorhexidine Gluconate 0.12 % e CW1 ([facility]) chlorhexidine gluconate 1.2 MG/ML Mouthwash Chlorhexid ine Gluconate 0.12 % Chlorhexidine Gluconate 0.12 % 03/17/2019 12:00:00 AM EST 15.0 {ml} suspended Chlorhexidine Gluconate 0.12 % e CW1 ([facility]) Insurance Providers Payer name Policy type / Coverage type Policy ID Covered green party ID Covered green party's relationship to mcfadden Policy Mcfadden Plan Information [facility] FEDERAL EMPLOYEE PROGRAM [id number] SP [id number] [facility] FEDERAL EMPLOYEE PROGRAM [id number] SP [id number] [facility] C [id number] Self [id number] [facility] B [id number] S [id number] ANSI-Commercial [id number] [employer] FEDERAL EMPLOYEE PROGRAM [id number] SP [id number] [facility] Health Maintenance Organization (HMO) [id number] Self [id number] [facility] Health Maintenance Organization (HMO) [id number] Self [id number] [employer] [id number] SP [id number] [facility] Health Maintenance Organization (HMO) [id number] Self [id number] [employer] FEDERAL [id number] SP [id number] Federal BC/BS Commercial [id number] Self [id number] Federal BC/BS Commercial Self BC BS [place] [employer] P [id number] S [id number] BC BS [place] [employer]AL [id number] SP [id number] [employer] P [id number] S [id number] SELF PAY UNAVAILABLE SP UNAVAILA BLE [id number] Problems, Conditions, and Diagnoses Code Display Name Description Problem Type Effective Dates Data Source(s) D50.9 [id number] Iron deficiency anemia, unspecif ied iron deficiency anemia type Problem 01/15/2020 12:00:00 AM EST eCW1 ([facility]) E11.9 [id number] Type 2 diabetes mellitus without complica tions Problem 01/15/2020 12:00:00 AM EST eCW1 ([facility]) 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 Proble 01/15/2020 12:00:00 AM EST eCW1 ([facility]) [id number] Urticaria due to cold and heat Urticaria due to cold a nd heat Problem 01/13/2020 12:00:00 AM EST MEDENT ([facility] ) N93.9 [id number] Abnormal uterine bleeding (AUB) Problem 12/30/2019 12:00:00 AM EDT eCW1 ([facility]) R92.8 [id number] Abnormal mammogram of right breast Proble m 12/23/2019 12:00:00 AM EDT eCW1 ([facility]) E66.01 [id number] Obesity, morbid, BMI 40.0-49.9 Problem 02/25/2019 12:00:00 AM EST eCW1 ([facility]) E66.01 [id number] Obesity, morbid, BMI 40.0-49.9 Problem 02/25/2019 12:00:00 AM EST eCW1 ([facility]) Surgeries/Procedures Procedure Description Date Indications Data Source(s) BRNCDILAT RSPSE SPMTRY PRE&POST-BRNCDILAT ADMN 020 12:00:00 AM EST MEDENT ([facility]) PERCUTANEOUS TESTS W/ALLERGENIC EXTRACTS 01/13/2020 12 :00:00 AM EST MEDENT ([facility]) INTRACUTANEOUS TESTS W/ALLERGENIC EXTRACTS 01/13/2020 12:00:00 AM EST MEDENT ([facility]) STREP A ASSAY W/OPTIC 03/17/2019 12:00:00 AM EST eCW1 ([facility]) Influenza A+B 03/17/2019 12:00:00 AM EST eCW1 ([facility]) Results ID Date Data Source [id number] 03/26/2020 12:00:00 AM EST [facility] Name Value Range Interpretation Code Description Data Shelby rce(s) Supporting Document(s) SARS coronavirus 2 RNA [Presence] in Res piratory specimen by RHEA with probe detection POSITIVE [facility] This lab was ordered by [facility] and reported by [facility]. ID Date Data Source [id number] 03/26/2020 12:00:00 AM EST [facility] Name Value Range Interpretation Code Description Data Hselby rce(s) Supporting Document(s) Carestart Rapid COVID Antigen Test Negative [facility]. ID Date Data Source [id number] 02/11/2020 12:00:00 AM EST [facility] Name Value Range Interpretation Code Description Data Shelby rce(s) Supporting Document(s) SARS coronavirus 2 Ag [facility] This lab was ordered by [facility] and reported by [facility]. ID Date Data Source [id number] 02/09/2020 01:00:00 PM EST [facility] Name Value Range Interpretation Code Description Data Shelby rce(s) Supporting Document(s) [facility] 2 [facility] This lab was ordered by [facility] and reported by [facility]. Procedure Social History Code Duration Value Status Description Data Source(s ) Smoking 03/18/2020 12:00:00 AM EST Never Smoker completed Never S moker eCW1 ([facility]) Smoking 03/18/2020 12:00:00 AM EST Never Smoker completed Never S moker eCW1 ([facility]) Smoking 03/18/2020 12:00:00 AM EST Never Smoker completed Never S moker eCW1 ([facility]) Smoking 02/16/2020 12:00:00 AM EST Never Smoker completed Never S moker eCW1 ([facility]) Smoking 02/16/2020 12:00:00 AM EST Never Smoker completed Never S moker eCW1 ([facility]) Smoking 02/16/2020 12:00:00 AM EST Never Smoker completed Never S moker eCW1 ([facility]) Smoking 02/16/2020 12:00:00 AM EST Never Smoker completed Never S moker eCW1 ([facility]) Smoking 02/16/2020 12:00:00 AM EST Never Smoker completed Never S moker eCW1 ([facility]) Smoking 01/29/2020 12:00:00 AM EST Never Smoker completed Never S moker eCW1 ([facility]) Smoking 01/15/2020 12:00:00 AM EST Never Smoker completed Never S moker eCW1 ([facility]) Smoking 01/13/2020 12:00:00 AM EST Patient has never smoked co mpleted Patient has never smoked MEDENT ([facility] ) Smoking 01/01/2020 12:00:00 AM EDT Never Smoker completed Never S moker eCW1 (Formerly [facility]) Smoking 01/01/2020 12:00:00 AM EDT Never Smoker completed Never S moker eCW1 (Formerly [facility]) Smoking 01/01/2020 12:00:00 AM EDT Never Smoker completed Never S moker eCW1 (Formerly [facility]) Smoking 04/15/2019 12:00:00 AM EST Never Smoker completed Never S moker eCW1 (Formerly [facility]) Vital Signs ID Date Data Source UNK Name Value Range Interpretation Code Description Data Source(s) Diastolic blood pressure 79 mm[Hg] 79 mm[Hg] eCW1 (Formerly [facility]) Systolic blood pressure 126 mm[Hg] 126 mm[Hg] e CW1 (Formerly [facility]) Body temperature 98.0 [degF] 98.0 [degF] eCW1 ( Formerly [facility]) Respiratory rate 17 /min 17 /min eCW1 ([facility]) Heart rate 82 /min 82 /min eCW1 ([facility]) Body mass index (BMI) [Ratio] 46.86 kg/m2 46.86 kg/m2 eCW1 (Formerly [facility]) Body height 67 [in_i] 67 [in_i] eCW1 ([facility]ly [facility]) Body weight 299.2 [lb_av] 299.2 [lb_av] eCW1 ([facility]) Diastolic blood pressure 93 mm[Hg] 93 mm[Hg] eCW1 ([facility]ly [facility]) Systolic blood pressure 152 mm[Hg] 152 mm[Hg] e CW1 ([facility]ly [facility]) Body temperature 98.1 [degF] 98.1 [degF] eCW1 ( [facility]ly [facility]) Respiratory rate 18 /min 18 /min eCW1 ([facility] hospital) Heart rate 80 /min 80 /min eCW1 ([facility]) Body mass index (BMI) [Ratio] 46.82 kg/m2 46.82 kg/m2 eCW1 (Formerly [facility]) Body height 67 [in_i] 67 [in_i] eCW1 ([facility]ly [facility]) Body weight 299 [lb_av] 299 [lb_av] eCW1 ([facility]) Body mass index (BMI) [Ratio] 37.2 kg/m2 37.2 k g/m2 MEDENT ([facility], [facility]) Body height 69 [in_i] 69 [in_i] MEDENT ([facility], [facility]) 5'9" Body weight 252.00 [lb_av] 252.00 [lb_av] MEDEN T ([facility], [facility]) Body temperature 98.6 [degF] 98.6 [degF] MEDENT ([facility], [facility]) Oxygen saturation in Arterial blood by Pulse oximetry 96 % 96 % MEDENT ([facility], [facility]) Respiratory rate 18 /min 18 /min MEDENT ( [facility], [facility]) Heart rate 92 /min 92 /min MEDENT ([facility], [facility]) Diastolic blood pressure 95 mm[Hg] 95 mm[Hg] MEDENT ([facility], [facility]) Systolic blood pressure 147 mm[Hg] 147 mm[Hg] M EDENT ([facility], [facility]) Diastolic blood pressure 92 mm[Hg] 92 mm[Hg] eCW1 ([facility]ly [facility]) Systolic blood pressure 140 mm[Hg] 140 mm[Hg] e CW1 ([facility]ly [facility]) Body mass index (BMI) [Ratio] 47.92 kg/m2 47.92 kg/m2 W1 ([facility]ly [facility]) Body height 67 [in_i] 67 [in_i] eCW1 ([facility]ly [facility]) Body weight 138.8 kg 138.8 kg eCW1 ([facility]ly [facility]) Body weight 306 [lb_av] 306 [lb_av] eCW1 ([facility]) Diastolic blood pressure 82 mm[Hg] 82 mm[Hg] eCW1 ([facility]ly [facility]) Systolic blood pressure 126 mm[Hg] 126 mm[Hg] e CW1 ([facility]ly [facility]) Body temperature 98.2 [degF] 98.2 [degF] eCW1 ( [facility]) Respiratory rate 18 /min 18 /min eCW1 ([facility] hospital) Heart rate 95 /min 95 /min eCW1 ([facility]) Body mass index (BMI) [Ratio] 47.45 kg/m2 47.45 kg/m2 eCW1 ([facility]ly [facility]) Body height 67 [in_i] 67 [in_i] eCW1 ([facility]ly [facility]) Body weight 303 [lb_av] 303 [lb_av] eCW1 [...] blood pressure 88 mm[Hg] 88 mm[Hg] eCW1 ([facility]) Systolic blood pressure 140 mm[Hg] 140 mm[Hg] e CW1 ([facility]) Body mass index (BMI) [Ratio] 47.29 kg/m2 47.29 kg/m2 eCW1 ([facility]) Body height 67 [in_i] 67 [in_i] eCW1 ([facility]) Body weight 136.98 kg 136.98 kg eCW1 ([facility]) Body weight 302 [lb_av] 302 [lb_av] eCW1 ([facility]) Heart rate 86 /min 86 /min eCW1 ([facility]) Body mass index (BMI) [Ratio] 46.98 kg/m2 46.98 kg/m2 W1 ([facility]ly [facility]) Body height 67 [in_us] 67 [in_us] eCW1 ([facility]ly [facility]) Body weight Measured 300 [lb_av] 300 [lb_av] eC W1 ([facility]ly [facility]) Diastolic blood pressure 77 mm[Hg] 77 mm[Hg] eCW1 ([facility]) Systolic blood pressure 132 mm[Hg] 132 mm[Hg] e CW1 ([facility]) Body temperature 97.7 [degF] 97.7 [degF] eCW1 ( [facility]) Respiratory rate 18 /min 18 /min eCW1 ([facility] hospital) Diastolic blood pressure 88 mm[Hg] 88 mm[Hg] eCW1 ([facility]) Systolic blood pressure 142 mm[Hg] 142 mm[Hg] e CW1 ([facility]) Body temperature 98.8 [degF] 98.8 [degF] eCW1 ( [facility]) Respiratory rate 18 /min 18 /min eCW1 ([facility]) Heart rate 84 /min 84 /min eCW1 ([facility]) Body mass index (BMI) [Ratio] 46.98 kg/m2 46.98 kg/m2 eCW1 ([facility]ly [facility]) Body height 67 [in_us] 67 [in_us] eCW1 ([facility]ly [facility]) Body weight Measured 300 [lb_av] 300 [lb_av] eC W1 ([facility]ly [facility]) Diastolic blood pressure 80 mm[Hg] 80 mm[Hg] eCW1 ([facility]) Systolic blood pressure 151 mm[Hg] 151 mm[Hg] e CW1 ([facility]) Body temperature 98.4 [degF] 98.4 [degF] eCW1 ( [facility]) Respiratory rate 18 /min 18 /min eCW1 ([facility]) Heart rate 101 /min 101 /min eCW1 ([facility]) Body mass index (BMI) [Ratio] 47.14 kg/m2 47.14 kg/m2 W1 ([facility]ly [facility]) Body height 67 [in_us] 67 [in_us] eCW1 ([facility]ly [facility]) Body weight Measured 301 [lb_av] 301 [lb_av] eC W1 (Formerly [facility]) Patient Treatment Plan of Care Planned Activity Planned Date Details Description Data Source (s) 1 ML Leuprolide Acetate 3.75 MG/ML Prefilled Syringe [ Lupron] 02/27/2020 12:00:00 AM EST eCW1 ([facility]) 1 ML Leuprolide Acetate 3.75 MG/ML Prefilled Syringe [ Lupron] 02/27/2020 12:00:00 AM EST eCW1 ([facility]) 1 ML Leuprolide Acetate 3.75 MG/ML Prefilled Syringe [ Lupron] 02/27/2020 12:00:00 AM EST eCW1 ([facility]) Metformin hydrochloride 500 MG Oral Tablet 01/15/2020 12:00:[address] eCW1 (Formerly [facility]) Azelastine hydrochloride 0.5 MG/ML Ophthalmic Solution 04/15/2019 12:00:00 AM EST eCW1 ([facility]) Azelastine hydrochloride 0.5 MG/ML Ophthalmic Solution 04/15/2019 12:00:00 AM EST eCW1 ([facility]) Ibuprofen 800 MG 03/17/2019 12:00:00 AM EST eCW1 ([facility]) Chlorhexidine Gluconate 0.12 % 03/17/2019 12:00:00 AM EST eCW1 ([facility]ly [facility])
[2020-04-11] MEDS ORDERED: METF500T13 PO (15:24)
[2020-04-11 15:52] LABS: BASO % 0.3 % (0.0-1.0); EOS # 0.1 10^3/uL (0.0-0.5); EOS % 1.9 % (0.0-3.0); HEMATOCRIT 31.7 % (36.0-47.0); LYMPH # 2.7 10^3/uL (1.5-5.0); LYMPH % 36.6 % (24.0-44.0); MEAN CORPUSCULAR HEMOGLOBIN 21.6 pg (27.0-33.0); MEAN CORPUSCULAR HGB CONC 28.4 g/dl (32.0-36.5); MONO # 0.5 10^3/uL (0.0-0.8); MONO % 6.7 % (0.0-5.0); NEUTROPHILS % 54.2 % (36.0-66.0); PLATELET COUNT, AUTOMATED 206 10^3/uL (150-450); RED BLOOD COUNT 4.17 10^6/uL (4.00-5.40); WHITE BLOOD COUNT 7.4 10^3/uL (4.0-10.0)
[2020-04-11 16:02] LABS: INR 1.03; PROTHROMBIN TIME 13.7 SECONDS (12.5-14.3)
[2020-04-11 16:03] LABS: PARTIAL THROMBOPLASTIN TIME 24.8 SECONDS (24.2-38.5)
[2020-04-11 16:05] LABS: D-DIMER QUANT 1155.33 ng/ml (<500)
[2020-04-11 16:19] LABS: HCG, SERUM QUALITATIVE NEGATIVE (NEGATIVE)
[2020-04-11 16:22] LABS: ALBUMIN 3.5 GM/DL (3.2-5.2); ALT/SGPT 44 U/L (12-78); BILIRUBIN,TOTAL 0.2 MG/DL (0.2-1.0); BLOOD UREA NITROGEN 10 MG/DL (7-18); C REACTIVE PROTEIN QUANTITATIV 0.88 MG/DL (0.00-0.30); CARBON DIOXIDE LEVEL 25 MEQ/L (21-32); CHLORIDE LEVEL 104 MEQ/L (98-107); CK-MB VALUE MASS < 1.0 NG/ML (<3.6); CPK CREATINE PHOSPHOKINASE 62 U/L (26-192); CREATININE FOR GFR 0.62 MG/DL (0.55-1.30); FERRITIN 8 NG/ML (8-252); GLOMERULAR FILTRATION RATE > 60.0 (>58); GLUCOSE, FASTING 199 MG/DL (70-100); LDH LACTATE DEHYDROGENASE 182 U/L (84-246); MAGNESIUM LEVEL 1.7 MG/DL (1.8-2.4); MB/CK RELATIVE INDEX 1.61 (< OR =4); POTASSIUM SERUM 3.7 MEQ/L (3.5-5.1); SODIUM LEVEL 138 MEQ/L (136-145); TROPONIN I < 0.02 NG/ML (< 0.10)
[2020-04-11] MEDS ORDERED: diphenhydrAMINE 50MG/ML VIAL (J1200) IV STA (16:25)
[2020-04-11] MEDS ORDERED: MAGNESIUM OXIDE 400 MG TAB (MAG-OX) PO ONE (16:45)
[2020-04-11] MEDS ORDERED: ISOVUE-370 76% 100ML VIAL As Ordered ONE (17:06)
--- NOTE | 2020-04-11 17:36 | REPVR ---
PROCEDURE INFORMATION: Exam: US Duplex Lower Extremity Veins, Bilateral Exam date and time: 04/11/2020 5:13 PM Age: 44 years old Clinical indication: Pain; Leg, lower; Bilateral; Additional info: Leg pain R/O dvt TECHNIQUE: Imaging protocol: Real-time duplex ultrasound of the extremities with 2-D quesada scale, color Doppler flow and spectral waveform analysis with image documentation. Complete exam focused on the bilateral lower extremity veins. COMPARISON: No relevant prior studies available. FINDINGS: Right deep veins: Unremarkable. The common femoral, femoral, proximal profunda femoral and popliteal veins are patent without thrombus. Normal Doppler waveforms. Normal compressibility and/or augmentation response. Right superficial veins: Saphenofemoral junction is patent without thrombus. Left deep veins: Unremarkable. The common femoral, femoral, proximal profunda femoral and popliteal veins are patent without thrombus. Normal Doppler waveforms. Normal compressibility and/or augmentation response. Left superficial veins: Saphenofemoral junction is patent without thrombus. Soft tissues: Unremarkable. IMPRESSION: No evidence of deep vein thrombosis. Electronically signed by: Stefan Bolton On 04/11/2020 17:36:15 PM
--- NOTE | 2020-04-11 18:13 | REPVR ---
PROCEDURE INFORMATION: Exam: CT Angiography Chest With Contrast Exam date and time: 04/11/2020 5:33 PM Age: 44 years old Clinical indication: Chest pain; Additional info: Chest pain SOB R/O pe TECHNIQUE: Imaging protocol: Computed tomographic angiography of the chest with contrast. 3D rendering (Not supervised by radiologist): MIP and/or 3D reconstructed images were created by the technologist. Radiation optimization: All CT scans at this facility use at least one of these dose optimization techniques: automated exposure control; mA and/or kV adjustment per patient size (includes targeted exams where dose is matched to clinical indication); or iterative reconstruction. Contrast material: ISOVUE 370; Contrast volume: 75 ml; Contrast route: INTRAVENOUS (IV); COMPARISON: No relevant prior studies available. FINDINGS: Limitations: This examination is suboptimal for the evaluation of pulmonary arterial emboli secondary to pulmonary artery contrast opacification. Pulmonary arteries: No filling defects are identified within the main pulmonary trunk or right or left main pulmonary arteries. Peripheral pulmonary emboli cannot be excluded. Aorta: Unremarkable. No aortic aneurysm. No aortic dissection. Lungs: Small patchy opacities within the lung bases bilaterally, nonspecific. These likely represent areas of atelectasis. However, small basilar infiltrates, pulmonary infarcts or neoplastic process cannot be completely excluded. Calcified granuloma within the left lower lobe. Pleural spaces: Unremarkable. No pneumothorax. No pleural effusion. Heart: No definite evidence of right heart strain. Lymph nodes: Unremarkable. No enlarged lymph nodes. Stomach and bowel: Small gastric hiatus hernia. Bones/joints: Degenerative spondylosis of the thoracic spine. No fracture or suspicious bone lesion. Soft tissues: Unremarkable. IMPRESSION: 1. Suboptimal examination for evaluation of pulmonary arterial emboli secondary to contrast bolus. No pulmonary emboli are identified within the main pulmonary trunk or right or left main pulmonary artery. Peripheral pulmonary emboli cannot be excluded. 2. Bibasilar lung opacities, nonspecifi. Differential diagnosis includes atelectasis, basilar infiltrates, small pulmonary infarcts as well as neoplasm. Follow-up CT scan of the chest is recommended in 3-6 months. Electronically signed by: Stefan Bolton On 04/11/2020 18:13:16 PM
[2020-04-11] MEDS ORDERED: dexameTHASONE 20MG/5ML VIAL (J1100 PER 1MG) IV ONE (18:30)
[2020-04-11] MEDS ORDERED: BENA25CA4 PO (18:42)
[2020-04-11] MEDS ORDERED: IBUP-1764 PO (18:42)
[2020-04-11] MEDS ORDERED: MUCI120T PO (18:42)
[2020-04-11] MEDS ORDERED: LEVOTAB10 PO (18:42)
[2020-04-11] MEDS ORDERED: AZEL0.1S NARES (18:42)
[2020-04-11] MEDS ORDERED: FERR1TAB8 PO (18:42)
[2020-04-11] MEDS ORDERED: ALLE180T33 PO (18:42)
[2020-04-11] MEDS ORDERED: C 50TAB PO (18:42)
--- NOTE | 2020-04-11 20:51 | HPEPDOC ---
[facility] Medical History & Physical Date of Admission Apr 11, 2020 Date of Service: Apr 11, 2020 History and Physical ED Medical consult CHIEF COMPLAINT: Weakness HISTORY OF PRESENT ILLNESS: Presented to ED with SOB, cough, chest discomfort reproducible and associated with coughing. Patient known to have Covid 19 infection. Patient says she feels well overall she's currently not expressing any chest pain she says is mostly associated with her coughing feels like her muscles are sore. Troponin the ED was negative. On exam chest pain is producible. Patient denies being short of breath she's eating dinner at bedside and speaking to me for over 10 minutes without any distress or shortness of breath. She says her mother lives at home with his Covid positive but is doing well. Patient denies any headache abdominal pain or diarrhea. She says she feels little weak but feels well enough to go home. Received 1st covid vaccine Mar 25. Tested positive Mar 26. PAST MEDICAL/SURGICAL HISTORY: DM on metformin Anemia 2/2 bleeding uterine fibroids. SOCIAL HISTORY: Denies alcohol use Denies tobacco use Denies illicit drug use FAMILY HISTORY: Reviewed and none contributory to this admission. Mother has COVID+ at home. ALLERGIES: Please see below. REVIEW OF SYSTEMS: Constitutional: No sweating or weight loss Eyes: No eye pain or acute blurred vision HENT: No complaints of headache or sore throat Cadiovascular: No active current Chest pain or palpitations Pulm: Per HPI Gastrointestinal: No N/V, no abdominal pain. Genitourinary: No dysuria or hematuria Musculoskeletal: No back pain or joint pain Skin: No rash or jaundice Neurological: No weakness. HOME MEDICATIONS: Please see below. PHYSICAL EXAMINATION: Constitutional: Awake and alert, in no apparent distress, obese ENT: Sclera are clear. Mucosa is moist. Respiratory: Lungs CTA bilaterally. No respiratory distress. No use of accessory muscles. Saturating 100% room air Cardiovascular: RRR S1 and S2 are normal, no murmur. Reproducible pain over her intercostal muscles on palpation. Gastrointestinal: Abdomen is soft, non distended, non tender, BS present. Musculoskeletal: No lower extremity edema. RUE 5/5, LUE 5/5, BLE 5/5 Neurologic: No focal neurological deficit Mental Status: A&O x3, normal affect Skin: Warm, dry LABORATORY DATA: See below. IMAGING: See chart MICROBIOLOGY: Please see below. ASSESSMENT/PLAN I was asked to provide a medical consultation for this patient by Dr. Alvarenga, to determine if patient should be admitted to the hospital. Based on my evaluation above I don't think this patient needs to get admitted to the hospital she is doing very well. She had an elevated d-dimer but a lower extremity ultrasound was done and was negative for clots CT angiogram was also done and was negative for PE. She has Covid 19 pneumonia but I do not believe she has a superimposed bacterial infection her white count is normal she's afebrile and she does not have a productive cough. She is also saturating at 100% on room air when I saw her and she was speaking full sentences without any shortness of breath. Other than the elevated d-dimer other infirmity markers are okay. She has some anemia but she tells me is chronic and usually is around 8 today's 9 she has a history of bleeding from uterine fibroids. She does not have, cytopenia. Regarding her chest discomfort is noncardiac based on the jeff criteria her troponin was negative and it is reproducible on exam and associated with coughing I believe this likely musculoskeletal. Her onset of Covid is greater than 10 days and she does not qualify for mass. She does not require supplemental oxygen and she does not need antibiotics. I do not think at this time she requires admission to the hospital I would be comfortable having her go home from the emergency department and return should any further symptoms worsen or she feels increasingly short of breath or gets recurrent chest pain again. Vital Signs Vital Signs Date Time Temp Pulse Resp B/P (MAP) Pulse Ox O2 Delivery O2 Flow Rate FiO2 04/11/20 19:00 77 20 145/91 (109) 100 Room Air 04/11/20 14:47 97.7 Laboratory Data Labs 24H Laboratory Tests 2 04/11/20 15:39: Immature Granulocyte % (Auto) 0.3, Neutrophils (%) (Auto) 54.2, Lymphocytes (%) (Auto) 36.6, Monocytes (%) (Auto) 6.7H, Eosinophils (%) (Auto) 1.9, Basophils (%) (Auto) 0.3, Neutrophils # (Auto) 4.0, Lymphocytes # (Auto) 2.7, Monocytes # (Auto) 0.5, Eosinophils # (Auto) 0.1, Basophils # (Auto) 0.0, Nucleated Red Blood Cells % (auto) 0.0, Prothrombin Time 13.7, Prothromb Time International Ratio 1.03, Activated Partial Thromboplast Time 24.8L, D-Dimer, Quantitative 1155.33H, Anion Gap 9, Glomerular Filtration Rate > 60.0, Lactic Acid Level 1.3, Calcium Level 9.0, Magnesium Level 1.7L, Ferritin 8, Total Bilirubin 0.2, Aspartate Amino Transf (AST/SGOT) 11, Alanine Aminotransferase (ALT/SGPT) 44, Alkaline Phosphatase 99, Lactate Dehydrogenase 182, Total Creatine Kinase 62, Creatine Kinase MB < 1.0, Creatine Kinase MB Relative Index 1.61, Troponin I < 0.02, C-Reactive Protein, Quantitative 0.88H, Total Protein 7.0, Albumin 3.5, Albumin/Globulin Ratio 1.0L, Procalcitonin <0.05, Human Chorionic Gonadotropin, Qual NEGATIVE CBC/BMP Laboratory Tests 04/11/20 15:39 Home Medications Scheduled Ascorbic Acid (Vitamin C) 500 Mg Tablet, 500 MG PO DAILY Azelastine HCl (Azelastine HCl) 0.1% [place].pump, 2 SPRAY NARES BID Ferrous Sulfate (Ferrous Sulfate) 325 Mg Tablet, 325 MG PO DAILY Fexofenadine HCl (Inna Allergy) 180 Mg Tablet, 180 MG PO DAILY Guaifenesin/Pseudoephedrne HCl (Mucinex D ER 1,200-120 mg Tab) 1 Each Tab.er.12h, 1 TAB PO BID Levocetirizine Dihydrochloride (Levocetirizine Dihydrochloride) 5 Mg Tablet, 5 MG PO QHS Metformin HCl (Metformin HCl) 500 Mg Tablet, 500 MG PO BID HASN'T TAKEN IN A COUPLE MONTHS Scheduled PRN Diphenhydramine HCl (Benadryl) 25 Mg Capsule, 25 MG PO Q12H PRN for SEVERE ALLERGY SYMPTOMS Ibuprofen (Ibuprofen) 200 Mg Tablet, 600 MG PO QID PRN for PAIN Allergies Coded Allergies: Contrast Media (Verified Allergy, Severe, 04/11/20) latex (Verified Allergy, Severe, 04/11/20) Penicillins (Verified Allergy, Intermediate, 04/11/20) rash Sulfa (Sulfonamide Antibiotics) (Verified Allergy, Intermediate, 04/11/20) clarithromycin (Verified Allergy, Intermediate, 04/11/20) clindamycin (Verified Allergy, Unknown, 04/11/20) povidone-iodine (Verified Allergy, Unknown, 04/11/20) soap (Verified Allergy, Unknown, 04/11/20) A-FIB/CHADSVASC A-FIB History Current/History of A-Fib/PAF?: No LUNA WADE MD Apr 11, 2020 20:51
[2020-04-11 21:00] VITALS: BP 149/92
--- NOTE | 2020-04-11 21:03 | ECGEPIP ---
[facility] - ED Test Date: 2020-04-11 Pat Name: CHRYSTAL BARILLAS Department: Room: - Gender: Female Cake Former: niya : 1975 Requested By: TINY Lopez Order Number: [id number] Reading MD: Dorothy Nesbitt Measurements Intervals [place] Rate: 75 P: 47 [place]: 148 QRS: -3 QRSD: 85 T: 1 QT: 342 QTc: 384 Interpretive Statements SINUS RHYTHM MODERATE VOLTAGE CRITERIA FOR LVH, CONSIDER NORMAL VARIANT No prior Electronically Signed on 04-11-2020 21:03:36 EST by Dorothy Nesbitt
--- NOTE | 2020-04-12 15:42 | ED PDOC ---
Post-Departure Follow-Up cta chest faxed to dr nugent for fu Maverick Kellogg MD Apr 12, 2020 15:42
== END 2020-04-11 21:21 | disposition home or self-care (01) ==
LOC: M ED 14:26
DX: U07.1 COVID-19 (principal); J30.9 Allergic rhinitis, unspecified; L20.9 Atopic dermatitis, unspecified; J45.909 Unspecified asthma, uncomplicated; G43.909 Migraine, unspecified, not intractable, without status migrainosus; M79.606 Pain in leg, unspecified; Z91.041 Radiographic dye allergy status; Z88.0 Allergy status to penicillin; Z88.2 Allergy status to sulfonamides; Z88.1 Allergy status to other antibiotic agents; Z91.040 Latex allergy status; Z91.89 Other specified personal risk factors, not elsewhere classified
CPT/HCPCS: 71275; 80053; 82550; 82553; 82728; 83605; 83615; 83735; 84145; 84484; 84703; 85025; 85379; 85610; 85730; 86140; 93005; 93041; 93970; 94760; 96374; 96375; 99285; J1100; J1200; Q9967

== ENCOUNTER → 2020-04-20 | Outpatient (CLI) | payer BC ==
[~2020-04-20] MED LIST: ALLE180T33 PO; AZEL0.1S NARES; BENA25CA4 PO; C 50TAB PO; FERR1TAB8 PO; IBUP-1764 PO; LEVOTAB10 PO; METF500T13 PO; MUCI120T PO
--- NOTE | 2020-04-21 04:00 | REP ---
INDICATION: COVID 19 COMPARISON: None. TECHNIQUE: PA and lateral. FINDINGS: The mediastinum and cardiac silhouette are normal. The lung price are relatively clear although very subtle early basilar infiltrate based on lateral radiograph cannot be excluded. No focal consolidation, effusion, or pneumothorax. The skeletal structures are intact and normal. IMPRESSION: Questionable very subtle basilar airspace disease. <Electronically signed by Lorne Frausto > 04/21/20 [id number]
== END ==
LOC: M RAD 17:06
PROVIDERS: ATTEND Family Medicine
DX: U07.1 COVID-19 (principal)

== ENCOUNTER → 2020-04-28 | Outpatient (CLI) | payer BC ==
[2020-04-28 18:51] LABS: BASO % 0.4 % (0.0-1.0); EOS # 0.2 10^3/uL (0.0-0.5); EOS % 1.9 % (0.0-3.0); HEMATOCRIT 32.1 % (36.0-47.0); HEMOGLOBIN 9.3 g/dl (12.0-15.5); LYMPH # 3.1 10^3/uL (1.5-5.0); LYMPH % 33.9 % (24.0-44.0); MEAN CORPUSCULAR HEMOGLOBIN 22.4 pg (27.0-33.0); MEAN CORPUSCULAR VOLUME 77.3 fl (80.0-96.0); MONO # 0.6 10^3/uL (0.0-0.8); MONO % 6.1 % (2.0-8.0); NEUTROPHILS # 5.2 10^3/uL (1.5-8.5); NEUTROPHILS % 57.4 % (36.0-66.0); PLATELET COUNT, AUTOMATED 399 10^3/uL (150-450); RED BLOOD COUNT 4.15 10^6/uL (4.00-5.40); WHITE BLOOD COUNT 9.1 10^3/uL (4.0-10.0)
[2020-04-28 19:16] LABS: ALBUMIN 3.5 GM/DL (3.2-5.2); ALT/SGPT 22 U/L (12-78); BILIRUBIN,TOTAL 0.2 MG/DL (0.2-1.0); BLOOD UREA NITROGEN 8 MG/DL (7-18); CALCIUM LEVEL 9.2 MG/DL (8.5-10.1); CARBON DIOXIDE LEVEL 26 MEQ/L (21-32); CHLORIDE LEVEL 101 MEQ/L (98-107); CREATININE FOR GFR 0.69 MG/DL (0.55-1.30); GLOMERULAR FILTRATION RATE > 60.0 (>58); GLUCOSE, FASTING 263 MG/DL (70-100); SODIUM LEVEL 133 MEQ/L (136-145); TOTAL PROTEIN 7.5 GM/DL (6.4-8.2)
== END ==
LOC: M LAB 16:58
PROVIDERS: ATTEND Family Medicine
DX: U07.1 COVID-19 (principal)

== ENCOUNTER → 2020-04-29 | Outpatient (CLI) | payer BC ==
[~2020-04-29] MED LIST changes: +ISOVUE-370 76% 100ML VIAL As Ordered ONE
--- NOTE | 2020-04-29 14:21 | REP ---
INDICATION: SOB CHEST PAIN ? PE. Patient has a history of contrast reaction and has been premedicated. COMPARISON: Comparison CT pulmonary angiogram 11 April 2020.. TECHNIQUE: Contrast dose: 75 ML of Isovue [address] technique: Helical scanning is acquired and overlapping 1.5 mm and contiguous 3 mm axial images are reformatted. In addition, maximum intensity projection and multiplanar re-formation images are generated in sagittal and coronal imaging projections. FINDINGS: There is good opacification in the pulmonary arterial tree. There is no evidence of vessel cut off or filling defect to suggest pulmonary embolus. Homogeneous opacity is seen in the thoracic aorta. There is no evidence of aneurysm or dissection. Lung window settings demonstrate clear well inflated lung price. No infiltrate atelectasis or effusion is seen. No pericardial effusion is noted. No hilar or mediastinal mass or adenopathy is seen. No extra thoracic mass or adenopathy is observed. Bone window settings show no bony destructive lesion. In the upper abdomen, the adrenal glands are normal. The visualized upper abdominal structures are otherwise unremarkable. IMPRESSION: No CT evidence of pulmonary embolus. No active cardiopulmonary disease seen. <Electronically signed by Tito Baker > 04/29/20 [id number]
== END ==
LOC: M RAD 13:30
PROVIDERS: ATTEND Family Medicine
DX: R06.02 Shortness of breath (principal)
CPT/HCPCS: 71275; Q9967

== ENCOUNTER → 2020-05-17 | Outpatient (CLI) | payer BC ==
[~2020-05-17] MED LIST changes: -ISOVUE-370 76% 100ML VIAL As Ordered ONE
[2020-05-17 19:02] LABS: BASO % 0.2 % (0.0-1.0); EOS % 0.2 % (0.0-3.0); HEMATOCRIT 31.2 % (36.0-47.0); HEMOGLOBIN 8.8 g/dl (12.0-15.5); LYMPH # 1.3 10^3/uL (1.5-5.0); LYMPH % 14.9 % (24.0-44.0); MEAN CORPUSCULAR HEMOGLOBIN 21.7 pg (27.0-33.0); MEAN CORPUSCULAR HGB CONC 28.2 g/dl (32.0-36.5); MEAN CORPUSCULAR VOLUME 76.8 fl (80.0-96.0); MONO # 0.3 10^3/uL (0.0-0.8); MONO % 3.8 % (2.0-8.0); NEUTROPHILS # 7.1 10^3/uL (1.5-8.5); NEUTROPHILS % 80.3 % (36.0-66.0); PLATELET COUNT, AUTOMATED 309 10^3/uL (150-450); RED BLOOD COUNT 4.06 10^6/uL (4.00-5.40); WHITE BLOOD COUNT 8.8 10^3/uL (4.0-10.0)
[2020-05-17 19:34] LABS: BLOOD UREA NITROGEN 8 MG/DL (7-18); CALCIUM LEVEL 9.1 MG/DL (8.5-10.1); CARBON DIOXIDE LEVEL 25 MEQ/L (21-32); CHLORIDE LEVEL 104 MEQ/L (98-107); GLOMERULAR FILTRATION RATE > 60.0 (>58); GLUCOSE, FASTING 298 MG/DL (70-100); POTASSIUM SERUM 4.5 MEQ/L (3.5-5.1); SODIUM LEVEL 135 MEQ/L (136-145)
== END ==
LOC: M LAB 18:44
PROVIDERS: ATTEND Family Medicine
DX: E87.1 Hypo-osmolality and hyponatremia (principal); U07.1 COVID-19

== ENCOUNTER 2020-06-28 10:57 | Emergency (ER) | payer BC ==
[~2020-06-28] VITALS: Ht 170.2 cm; Wt 136.5 kg
--- NOTE | 2020-06-28 11:24 | REP ---
INDICATION: CHEST PAIN. COMPARISON: 04/20/2020 a PA and lateral exam TECHNIQUE: Portable FINDINGS: The technique utilized in obtaining the radiograph has magnified the cardiac silhouette and accentuated the interstitial markings. The superior mediastinal structures are midline. The cardiac silhouette is unremarkable in size, shape, and position. The diaphragmatic surfaces of the lungs are regular, and the costophrenic angles are clear. The pulmonary price are clear. The imaged osseous structures are intact. IMPRESSION: There is no acute cardiopulmonary disease. <Electronically signed by Bernard Novoa > 06/28/20 [id number]
[2020-06-28 11:56] LABS: BASO % 0.5 % (0.0-1.0); EOS # 0.2 10^3/uL (0.0-0.5); EOS % 3.2 % (0.0-3.0); HEMATOCRIT 34.7 % (36.0-47.0); HEMOGLOBIN 10.1 g/dl (12.0-15.5); LYMPH # 2.5 10^3/uL (1.5-5.0); LYMPH % 38.6 % (24.0-44.0); MEAN CORPUSCULAR HEMOGLOBIN 23.7 pg (27.0-33.0); MEAN CORPUSCULAR HGB CONC 29.1 g/dl (32.0-36.5); MEAN CORPUSCULAR VOLUME 81.3 fl (80.0-96.0); MONO # 0.5 10^3/uL (0.0-0.8); MONO % 8.3 % (2.0-8.0); NEUTROPHILS # 3.2 10^3/uL (1.5-8.5); NEUTROPHILS % 49.2 % (36.0-66.0); PLATELET COUNT, AUTOMATED 301 10^3/uL (150-450); RED BLOOD COUNT 4.27 10^6/uL (4.00-5.40); WHITE BLOOD COUNT 6.5 10^3/uL (4.0-10.0)
[2020-06-28 12:06] LABS: INR 0.97; PROTHROMBIN TIME 13.1 SECONDS (12.5-14.3)
[2020-06-28 12:07] LABS: PARTIAL THROMBOPLASTIN TIME 24.8 SECONDS (24.2-38.5)
[2020-06-28 12:18] LABS: HCG, SERUM QUALITATIVE NEGATIVE (NEGATIVE)
[2020-06-28 12:24] LABS: ERYTHROCYTE SEDIMENTATION RATE 40 mm/hr (0-20)
[2020-06-28] MEDS ORDERED: FUROSEMIDE 40MG/4ML VIAL (J1940) IV ONE (12:25)
--- NOTE | 2020-06-28 13:01 | REP ---
INDICATION: BLE swelling; R>L: r/o DVT COMPARISON: None. TECHNIQUE: Adams scale and color Doppler evaluation right and left lower extremity using linear high frequency transducer. FINDINGS: Ultrasound examination of the right and left lower extremity deep venous structures from the common femoral vein to the popliteal vein demonstrates normal compressibility flow and wave patterns in response to respiration and augmentation. There is no evidence for deep venous thrombosis. IMPRESSION: No evidence for deep venous thrombosis. <Electronically signed by Lorne Frausto > 06/28/20 [id number]
[2020-06-28 13:02] LABS: ALBUMIN 3.6 GM/DL (3.2-5.2); ALT/SGPT 27 U/L (12-78); BILIRUBIN,DIRECT < 0.1 MG/DL (0.0-0.2); BILIRUBIN,TOTAL 0.4 MG/DL (0.2-1.0); BLOOD UREA NITROGEN 10 MG/DL (7-18); CALCIUM LEVEL 9.4 MG/DL (8.5-10.1); CARBON DIOXIDE LEVEL 26 MEQ/L (21-32); CHLORIDE LEVEL 103 MEQ/L (98-107); CK-MB VALUE MASS < 1.0 NG/ML (<3.6); CPK CREATINE PHOSPHOKINASE 70 U/L (26-192); CREATININE FOR GFR 0.54 MG/DL (0.55-1.30); FREE T4 0.91 NG/DL (0.76-1.46); GLOMERULAR FILTRATION RATE > 60.0 (>58); GLUCOSE, FASTING 181 MG/DL (70-100); LIPASE 88 U/L (73-393); MB/CK RELATIVE INDEX 1.43 (< OR =4); NT-PRO BNP 5 PG/ML (<125); SODIUM LEVEL 136 MEQ/L (136-145); THYROID STIMULATING HORMONE 0.846 uIU/ML (0.358-3.740); TOTAL PROTEIN 7.1 GM/DL (6.4-8.2); TROPONIN I < 0.02 NG/ML (< 0.10)
[2020-06-28] MEDS ORDERED: LEUP375KIT (13:37)
[2020-06-28] MEDS ORDERED: FURO20TA2 (13:37)
[2020-06-28] MEDS ORDERED: ALBU83IN (13:37)
[2020-06-28] MEDS ORDERED: K-TA10TA2 PO (13:56)
[2020-06-28] MEDS ORDERED: LASI20TA3 PO (13:56)
[2020-06-28 14:09] VITALS: BP 129/79
--- NOTE | 2020-06-28 15:29 | ECGEPIP ---
[facility] - ED Test Date: 2020-06-28 Pat Name: CHRYSTAL CARABALLO Department: Room: - Gender: Female State Tested Nursing Assistant: AILEEN : 1975 Requested By: Andrew Mcgarry Order Number: [id number] Reading MD: Juve Walton Measurements Intervals [place] Rate: 73 P: 61 VT: 152 QRS: 14 QRSD: 92 T: 24 QT: 388 QTc: 427 Interpretive Statements Normal sinus rhythm Baseline artifact Electronically Signed on 06-28-2020 15:29:25 EDT by Juve Walton
== END 2020-06-28 14:36 | disposition home or self-care (01) ==
LOC: M ED 10:57
DX: R60.9 Edema, unspecified (principal); Z79.899 Other long term (current) drug therapy; Z88.0 Allergy status to penicillin; Z88.1 Allergy status to other antibiotic agents; Z88.2 Allergy status to sulfonamides; Z88.8 Allergy status to other drugs, medicaments and biological substances; Z91.040 Latex allergy status; Z91.048 Other nonmedicinal substance allergy status
CPT/HCPCS: 71045; 80048; 80076; 82550; 82553; 83690; 83880; 84439; 84443; 84484; 84703; 85025; 85610; 85652; 85730; 86140; 93005; 93041; 93970; 94760; 96374; 99285; J1940

== ENCOUNTER → 2020-07-29 | Outpatient (CLI) | payer BC ==
[~2020-07-29] MED LIST changes: +ALBU83IN; +FURO20TA2; +K-TA10TA2 PO; +LASI20TA3 PO; +LEUP375KIT; +METHACHOLINE KIT (J7674) INH ONE
--- NOTE | 2020-07-29 09:02 | PFTRPT ---
Height: 69.00 Inches Weight: 257.00 Lbs BSA: 2.30 Diagnosis: R06.00 DATE: 07/29/2020 ORDERED BY: DELISA Foreman QUALITY: Study of excellent technical quality. PROCEDURE: Under protocol, methacholine was administered. At a dose of 2.5 mg or 13.875 CDUs, a 22% decline in the FEV1 was noted. PC of 1.13 is significant. Flow rates did return to baseline post bronchodilator administration. IMPRESSION: Positive methacholine challenge study. MTDD
== END ==
LOC: M CARPUL 08:19
PROVIDERS: ATTEND Physician Assistant
DX: R06.00 Dyspnea, unspecified (principal)
CPT/HCPCS: 94070; J7674

== ENCOUNTER → 2020-07-29 | Outpatient (REF) | payer BC ==
[~2020-07-29] MED LIST changes: -METHACHOLINE KIT (J7674) INH ONE
[2020-07-29 15:49] LABS: BLOOD UREA NITROGEN 8 MG/DL (7-18); CALCIUM LEVEL 9.5 MG/DL (8.5-10.1); CARBON DIOXIDE LEVEL 28 MEQ/L (21-32); CHLORIDE LEVEL 104 MEQ/L (98-107); CREATININE FOR GFR 0.64 MG/DL (0.55-1.30); GLOMERULAR FILTRATION RATE > 60.0 (>58); GLUCOSE, FASTING 228 MG/DL (70-100); POTASSIUM SERUM 4.4 MEQ/L (3.5-5.1); SODIUM LEVEL 136 MEQ/L (136-145)
== END ==
LOC: M PLALAB 14:49
PROVIDERS: ATTEND Family Medicine
DX: E87.1 Hypo-osmolality and hyponatremia (principal)

== ENCOUNTER 2021-02-19 14:19 | Emergency (ER) | payer BC ==
[~2021-02-19] VITALS: Ht 175.3 cm; Wt 121.4 kg
[2021-02-19] MEDS ORDERED: METO1TAB87 (14:31)
[2021-02-19] MEDS ORDERED: HYDR-3490 (14:31)
[2021-02-19] MEDS ORDERED: ONDANSETRON 4MG/2ML VIAL IV ONE (16:45)
[2021-02-19] MEDS ORDERED: NS 1,000 ML IV ONE (16:45)
[2021-02-19 17:10] LABS: BASO % 0.4 % (0.0-1.0); EOS # 0.2 10^3/uL (0.0-0.5); EOS % 2.5 % (0.0-3.0); HEMATOCRIT 34.1 % (36.0-47.0); HEMOGLOBIN 10.5 g/dl (12.0-15.5); LYMPH # 2.6 10^3/uL (1.5-5.0); MEAN CORPUSCULAR HEMOGLOBIN 25.7 pg (27.0-33.0); MEAN CORPUSCULAR HGB CONC 30.8 g/dl (32.0-36.5); MEAN CORPUSCULAR VOLUME 83.4 fl (80.0-96.0); MONO # 0.5 10^3/uL (0.0-0.8); MONO % 6.5 % (2.0-8.0); NEUTROPHILS # 4.6 10^3/uL (1.5-8.5); NEUTROPHILS % 58.3 % (36.0-66.0); PLATELET COUNT, AUTOMATED 309 10^3/uL (150-450); RED BLOOD COUNT 4.09 10^6/uL (4.00-5.40)
[2021-02-19 17:23] LABS: INR 0.93; PARTIAL THROMBOPLASTIN TIME 25.8 SECONDS (25.9-37.0); PROTHROMBIN TIME 12.9 SECONDS (12.7-14.5)
[2021-02-19 17:35] LABS: ALBUMIN 3.4 GM/DL (3.2-5.2); ALT/SGPT 26 U/L (12-78); BILIRUBIN,DIRECT < 0.1 MG/DL (0.0-0.2); BILIRUBIN,TOTAL 0.2 MG/DL (0.2-1.0); LIPASE 124 U/L (73-393)
[2021-02-19 17:38] LABS: ERYTHROCYTE SEDIMENTATION RATE 44 mm/hr (0-20)
[2021-02-19 17:48] LABS: RSV AMPLIFICATION NEGATIVE (NEGATIVE)
[2021-02-19] MEDS ORDERED: diphenhydrAMINE 50MG/ML VIAL (J1200) IV STA (18:30)
[2021-02-19] MEDS ORDERED: ISOVUE-370 76% 100ML VIAL As Ordered ONE (18:36)
[2021-02-19] MEDS ORDERED: ONDA4TAB6 PO (20:16)
[2021-02-19 20:32] VITALS: BP 136/84
== END 2021-02-19 20:39 | disposition home or self-care (01) ==
LOC: M ED 14:19
DX: R10.31 Right lower quadrant pain (principal); R50.9 Fever, unspecified; D64.9 Anemia, unspecified; Z88.0 Allergy status to penicillin; Z88.1 Allergy status to other antibiotic agents; Z88.2 Allergy status to sulfonamides; Z91.018 Allergy to other foods; Z91.040 Latex allergy status; Z91.041 Radiographic dye allergy status; Z91.048 Other nonmedicinal substance allergy status
CPT/HCPCS: 74176; 76705; 80047; 80076; 83690; 85025; 85610; 85652; 85730; 86140; 87040; 87631; 96361; 96374; 96375; 99284; J1200; J2405

== ENCOUNTER → 2021-04-10 | Outpatient (CLI) | payer BC ==
[~2021-04-10] MED LIST changes: +HYDR-3490; +METO1TAB87; +ONDA4TAB6 PO
[2021-04-10 12:27] LABS: BLOOD UREA NITROGEN 11 MG/DL (7-18); CALCIUM LEVEL 9.2 MG/DL (8.5-10.1); CARBON DIOXIDE LEVEL 25 MEQ/L (21-32); CHLORIDE LEVEL 105 MEQ/L (98-107); CHOLESTEROL LEVEL 214 MG/DL (<200); CHOLESTEROL RISK RATIO 2.377 (<5); CREATININE FOR GFR 0.62 MG/DL (0.55-1.30); GLOMERULAR FILTRATION RATE > 60.0 (>58); GLUCOSE, FASTING 165 MG/DL (70-100); HDL CHOLESTEROL 90 MG/DL (>40); LDL CHOLESTEROL 111 MG/DL (<100); NON-HDL-C 124 MG/DL; POTASSIUM SERUM 4.3 MEQ/L (3.5-5.1); SODIUM LEVEL 136 MEQ/L (136-145); TRIGLYCERIDES LEVEL 65 MG/DL (<150)
[2021-04-10 12:33] LABS: HEMOGLOBIN A1c 9.9 %
[2021-04-10 12:36] LABS: MALB URINE SIEMENS 30.4 MG/L; MAU/CREAT RATIO 23.3 MCG/MG (0.0-30.0)
== END ==
LOC: M LAB 11:39
PROVIDERS: ATTEND Family Medicine
DX: Z13.220 Encounter for screening for lipoid disorders (principal); E11.9 Type 2 diabetes mellitus without complications

== ENCOUNTER → 2021-08-09 | Outpatient (CLI) | payer BC ==
[~2021-08-09] MED LIST changes: +CHLO125TA PO; +EPIP0.3I2 IJ; -HYDR-3490; +HYDR-3490 PO; +JARD1TAB PO; -METO1TAB87; +METO1TAB87 PO; +OMEP-173 PO; +PROV108A INH; +SUMA100T2 PO; +TYLE650T38 PO; +VITMTA PO
[2021-08-09 17:22] LABS: BASO % 0.4 % (0.0-1.0); EOS # 0.2 10^3/uL (0.0-0.5); EOS % 2.4 % (0.0-3.0); HEMATOCRIT 31.7 % (36.0-47.0); HEMOGLOBIN 8.9 g/dl (12.0-15.5); LYMPH # 2.8 10^3/uL (1.5-5.0); LYMPH % 30.1 % (24.0-44.0); MEAN CORPUSCULAR HEMOGLOBIN 21.4 pg (27.0-33.0); MEAN CORPUSCULAR HGB CONC 28.1 g/dl (32.0-36.5); MEAN CORPUSCULAR VOLUME 76.4 fl (80.0-96.0); MONO # 0.7 10^3/uL (0.0-0.8); MONO % 7.8 % (2.0-8.0); NEUTROPHILS # 5.4 10^3/uL (1.5-8.5); NEUTROPHILS % 58.9 % (36.0-66.0); PLATELET COUNT, AUTOMATED 340 10^3/uL (150-450); RED BLOOD COUNT 4.15 10^6/uL (4.00-5.40); WHITE BLOOD COUNT 9.1 10^3/uL (4.0-10.0)
[2021-08-09 17:39] LABS: BLOOD UREA NITROGEN 10 MG/DL (7-18); CALCIUM LEVEL 10.5 MG/DL (8.5-10.1); CARBON DIOXIDE LEVEL 30 MEQ/L (21-32); CHLORIDE LEVEL 101 MEQ/L (98-107); CREATININE FOR GFR 0.67 MG/DL (0.55-1.30); GLOMERULAR FILTRATION RATE > 60.0 (>58); GLUCOSE, FASTING 98 MG/DL (70-100); POTASSIUM SERUM 3.7 MEQ/L (3.5-5.1); SODIUM LEVEL 137 MEQ/L (136-145)
[2021-08-09 17:41] LABS: HEMOGLOBIN A1c 7.9 %
== END ==
LOC: M LAB 16:46
PROVIDERS: ATTEND Family Medicine
DX: D50.9 Iron deficiency anemia, unspecified (principal)

== ENCOUNTER → 2021-08-11 | Outpatient (CLI) | payer BC ==
[~2021-08-11] MED LIST changes: +ALBU2.5V10; -ALBU83IN; +IBUP-1022 PO; +OXYC1TAB23 PO
== END ==
LOC: M LABSMTC 09:06
PROVIDERS: ATTEND Specialist
DX: Z01.818 Encounter for other preprocedural examination (principal); Z11.52 Encounter for screening for COVID-19

== ENCOUNTER 2021-08-12 11:49 | Day surgery (SDC) | payer BC ==
[~2021-08-12] VITALS: Ht 170.2 cm; Wt 125.6 kg
[~2021-08-12 11:49] MED LIST changes: -IBUP-1022 PO; -OXYC1TAB23 PO
[2021-08-12] MEDS ORDERED: LR 1,000 ML IV SCH ×3 (12:05→17:50)
[2021-08-12 12:30] LABS: HEMATOCRIT 31.3 % (36.0-47.0); MEAN CORPUSCULAR HEMOGLOBIN 22.2 pg (27.0-33.0); MEAN CORPUSCULAR HGB CONC 28.8 g/dl (32.0-36.5); MEAN CORPUSCULAR VOLUME 77.3 fl (80.0-96.0); PLATELET COUNT, AUTOMATED 292 10^3/uL (150-450); RED BLOOD COUNT 4.05 10^6/uL (4.00-5.40); WHITE BLOOD COUNT 7.5 10^3/uL (4.0-10.0)
[2021-08-12] MEDS ORDERED: fentaNYL 100 MCG/2 ML INJECTION As Ordered ONE (13:18)
[2021-08-12] MEDS ORDERED: MIDAZOLAM INJ 2MG/2ML VIAL (J2250 PER 1MG) As Ordered ONE (13:18)
[2021-08-12] MEDS ORDERED: LIDOCAINE 2% 100MG/5ML SDV (FOR ANES.) As Ordered ONE (13:18)
[2021-08-12] MEDS ORDERED: ROCURONIUM BROMIDE 50 MG/5 ML VIAL As Ordered ONE ×2 (13:18→15:54)
[2021-08-12] MEDS ORDERED: IBUP-1022 PO (14:18)
[2021-08-12] MEDS ORDERED: OXYC1TAB23 PO (14:19)
[2021-08-12] MEDS ORDERED: BUPIVACAINE HCL 0.25% 10ML VIAL As Ordered ONE (14:29)
[2021-08-12] MEDS ORDERED: VASOPRESSIN INJ 20 UNITS/ML VIAL As Ordered ONE (14:30)
[2021-08-12] MEDS ORDERED: dexameTHASONE 4 MG/ML 1ML VIAL (J1100 PER 1MG) As Ordered ONE (15:07)
[2021-08-12] MEDS ORDERED: HYDROmorphone HCL 2MG/ML 1ML VIAL As Ordered ONE (15:16)
[2021-08-12] MEDS ORDERED: ACETAMINOPHEN 1000MG 100ML IV BTL (OFIRMEV) (J0131 PER 10MG) As Ordered ONE (15:28)
[2021-08-12] MEDS ORDERED: METOCLOPRAMIDE INJ 10MG/2ML VIAL (J2765 PER 1) As Ordered ONE (15:43)
[2021-08-12] MEDS ORDERED: KETOROLAC 60MG 2ML VIAL As Ordered ONE (15:43)
[2021-08-12] MEDS ORDERED: ONDANSETRON 4MG/2ML VIAL As Ordered ONE (15:43)
[2021-08-12] MEDS ORDERED: fentaNYL 100 MCG/2 ML INJECTION IV PRN (17:20)
[2021-08-12] MEDS ORDERED: oxyCODONE 5MG TAB PO PRN (17:20)
[2021-08-12] MEDS ORDERED: ALBUTEROL SULFATE 2.5 MG/0.5 ML INH NEB SOLN INH ONE (17:20)
[2021-08-12] MEDS ORDERED: ONDANSETRON 4MG/2ML VIAL IV PRN (17:20)
[2021-08-12] MEDS ORDERED: INSULIN LISPRO (NovoLOG) PER UNIT SC PRN (17:20)
[2021-08-12] MEDS ORDERED: MEPERIDINE INJ 25 MG/ML VIAL (J2175) IV PRN (17:20)
[2021-08-12] MEDS ORDERED: HYDROMORPHONE HCL 0.5 MG/ 0.5 ML SYRINGE (J1170 PER 1) IV PRN (17:20)
[2021-08-12] MEDS ORDERED: PERCOCET 5MG/325MG TAB PO PRN (17:50)
[2021-08-12] MEDS ORDERED: IBUPROFEN 400MG TAB PO ONE (21:00)
[2021-08-12 21:30] VITALS: BP 128/76
== END 2021-08-12 21:34 | disposition home or self-care (01) ==
LOC: M SDC 11:49
PROVIDERS: ATTEND Specialist
DX: D25.9 Leiomyoma of uterus, unspecified (principal); N92.0 Excessive and frequent menstruation with regular cycle; G43.909 Migraine, unspecified, not intractable, without status migrainosus; J30.89 Other allergic rhinitis; Z79.899 Other long term (current) drug therapy; Z88.0 Allergy status to penicillin; Z88.1 Allergy status to other antibiotic agents; Z88.2 Allergy status to sulfonamides; Z88.8 Allergy status to other drugs, medicaments and biological substances; Z91.018 Allergy to other foods; Z91.040 Latex allergy status; Z91.041 Radiographic dye allergy status; Z91.048 Other nonmedicinal substance allergy status
CPT/HCPCS: 36415; 58545; 58558; 81025; 85027; 86850; 86900; 86901; 86920; 88305; J0131; J1100; J1170; J1885; J2250; J2405; J2765; J3010; S2900

== ENCOUNTER → 2021-08-22 | Outpatient (CLI) | payer BC ==
[~2021-08-22] MED LIST changes: +IBUP-1022 PO; +OXYC1TAB23 PO
[2021-08-22 18:20] LABS: BLOOD UREA NITROGEN 11 MG/DL (7-18); CALCIUM LEVEL 9.1 MG/DL (8.5-10.1); CARBON DIOXIDE LEVEL 29 MEQ/L (21-32); CHLORIDE LEVEL 99 MEQ/L (98-107); CREATININE FOR GFR 0.75 MG/DL (0.55-1.30); GLOMERULAR FILTRATION RATE > 60.0 (>58); GLUCOSE, FASTING 261 MG/DL (70-100); POTASSIUM SERUM 3.6 MEQ/L (3.5-5.1); SODIUM LEVEL 134 MEQ/L (136-145)
== END ==
LOC: M LAB 17:24
PROVIDERS: ATTEND Family Medicine
DX: E83.52 Hypercalcemia (principal)

== ENCOUNTER → 2021-08-30 | Outpatient (REF) | payer BC | LOC: M SFHCWAGY 16:56 | PROVIDERS: ATTEND Specialist | DX: N39.0 Urinary tract infection, site not specified (principal) ==

== ENCOUNTER → 2022-02-09 | Outpatient (CLI) | payer BC ==
[~2022-02-09] MED LIST changes: +ALBU6.7H6 INH; -PROV108A INH
[2022-02-09 18:06] LABS: BASO # 0.1 10^3/uL (0.0-0.2); BASO % 0.7 % (0.0-1.0); EOS # 0.3 10^3/uL (0.0-0.5); EOS % 4.3 % (0.0-3.0); HEMATOCRIT 31.5 % (36.0-47.0); HEMOGLOBIN 8.6 g/dl (12.0-15.5); LYMPH # 2.8 10^3/uL (1.5-5.0); LYMPH % 39.1 % (24.0-44.0); MEAN CORPUSCULAR HEMOGLOBIN 20.6 pg (27.0-33.0); MEAN CORPUSCULAR HGB CONC 27.3 g/dl (32.0-36.5); MEAN CORPUSCULAR VOLUME 75.4 fl (80.0-96.0); MONO # 0.6 10^3/uL (0.0-0.8); MONO % 7.9 % (2.0-8.0); NEUTROPHILS # 3.5 10^3/uL (1.5-8.5); NEUTROPHILS % 47.9 % (36.0-66.0); PLATELET COUNT, AUTOMATED 320 10^3/uL (150-450); RED BLOOD COUNT 4.18 10^6/uL (4.00-5.40); WHITE BLOOD COUNT 7.3 10^3/uL (4.0-10.0)
[2022-02-09 18:42] LABS: ALBUMIN 3.8 G/DL (3.2-5.2); ALKALINE PHOSPHATASE 86 U/L (46-116); ALT/SGPT 30 U/L (7.0-40); AST/SGOT 22 U/L (<34); BILIRUBIN,TOTAL 0.4 MG/DL (0.3-1.2); BLOOD UREA NITROGEN 11 MG/DL (9-23); CARBON DIOXIDE LEVEL 26 MMOL/L (20-31); CHLORIDE LEVEL 98 MMOL/L (98-107); CHOLESTEROL LEVEL 226 MG/DL (<200); CHOLESTEROL RISK RATIO 2.76 (<5); CREATININE FOR GFR 0.58 MG/DL (0.55-1.30); GLOMERULAR FILTRATION RATE > 60.0 (>58); GLUCOSE, FASTING 120 MG/DL (60-100); HCG, SERUM QUANTITATIVE < 2.6 MIU/ML (<4.2); HDL CHOLESTEROL 81.7 MG/DL (>40); LDL CHOLESTEROL 128.3 MG/DL (<100); NON-HDL-C 144 MG/DL; POTASSIUM SERUM 3.6 MMOL/L (3.5-5.1); SODIUM LEVEL 134 MMOL/L (136-145); TOTAL PROTEIN 7.3 G/DL (5.7-8.2); TRIGLYCERIDES LEVEL 80 MG/DL (<150)
[2022-02-09 20:03] LABS: HEMOGLOBIN A1c 6.7 % (4.0-6.0)
== END ==
LOC: M LAB 17:20
PROVIDERS: ATTEND Family Medicine
DX: R04.2 Hemoptysis (principal)

== ENCOUNTER → 2023-05-01 | Outpatient (CLI) | payer BC ==
[~2023-05-01] MED LIST changes: -K-TA10TA2 PO; +POTA-165 PO
== END ==
LOC: M WHC 06:39
PROVIDERS: ATTEND Family Medicine
DX: Z12.31 Encounter for screening mammogram for malignant neoplasm of breast (principal)

== ENCOUNTER → 2023-07-01 | Outpatient (CLI) | payer BC ==
[2023-07-01 11:46] LABS: BASO % 0.5 % (0.0-1.0); EOS # 0.2 10^3/uL (0.0-0.5); EOS % 2.8 % (0.0-3.0); HEMATOCRIT 29.3 % (36.0-47.0); HEMOGLOBIN 8.1 g/dl (12.0-15.5); LYMPH # 3.1 10^3/uL (1.5-5.0); LYMPH % 37.8 % (24.0-44.0); MEAN CORPUSCULAR HEMOGLOBIN 20.1 pg (27.0-33.0); MEAN CORPUSCULAR HGB CONC 27.6 g/dl (32.0-36.5); MEAN CORPUSCULAR VOLUME 72.7 fl (80.0-96.0); MONO # 0.7 10^3/uL (0.0-0.8); NEUTROPHILS # 4.1 10^3/uL (1.5-8.5); NEUTROPHILS % 50.8 % (36.0-66.0); PLATELET COUNT, AUTOMATED 305 10^3/uL (150-450); RED BLOOD COUNT 4.03 10^6/uL (4.00-5.40); WHITE BLOOD COUNT 8.1 10^3/uL (4.0-10.0)
[2023-07-01 12:03] LABS: HEMOGLOBIN A1c 6.4 % (4.0-6.0)
[2023-07-01 12:18] LABS: IRON (FE) 17 UG/DL (50-170)
[2023-07-01 12:19] LABS: ALBUMIN 3.5 G/DL (3.2-5.2); ALKALINE PHOSPHATASE 83 U/L (46-116); ALT/SGPT 18 U/L (7.0-40); AST/SGOT 16 U/L (<34); BILIRUBIN,TOTAL 0.4 MG/DL (0.3-1.2); BLOOD UREA NITROGEN 16 MG/DL (9-23); CALCIUM LEVEL 10.3 MG/DL (8.5-10.1); CARBON DIOXIDE LEVEL 29 MMOL/L (20-31); CHLORIDE LEVEL 101 MMOL/L (98-107); CHOLESTEROL LEVEL 213 MG/DL (<200); CHOLESTEROL RISK RATIO 2.52 (<5); CREATININE FOR GFR 0.64 MG/DL (0.55-1.30); GLOMERULAR FILTRATION RATE > 60.0 (>58); GLUCOSE, FASTING 104 MG/DL (60-100); HDL CHOLESTEROL 84.5 MG/DL (>40); LDL CHOLESTEROL 113.7 MG/DL (<100); NON-HDL-C 128.5 MG/DL; PERCENT SATURATION 4.6 % (13.2-45.0); POTASSIUM SERUM 4.1 MMOL/L (3.5-5.1); SODIUM LEVEL 135 MMOL/L (136-145); TOTAL IRON BINDING CAPACITY 372 UG/DL (250-425); TOTAL PROTEIN 6.7 G/DL (5.7-8.2); TRIGLYCERIDES LEVEL 74 MG/DL (<150)
[2023-07-01 12:20] LABS: FREE T4 0.97 NG/DL (0.89-1.76); THYROID STIMULATING HORMONE 1.041 uIU/ML (0.55-4.78)
[2023-07-01 12:21] LABS: CREATININE, URINE 82.9 MG/DL; MALB URINE SIEMENS < 3.0 MG/L; MAU/CREAT RATIO 3.6 MCG/MG (0.0-30.0)
[2023-07-01 12:21] LABS: TOTAL 25(OH) VITAMIN D 39.2 NG/ML (20.0-100.0)
== END ==
LOC: M LAB 11:05
PROVIDERS: ATTEND Family Medicine
DX: E11.9 Type 2 diabetes mellitus without complications (principal); E66.01 Morbid (severe) obesity due to excess calories; D50.9 Iron deficiency anemia, unspecified

== ENCOUNTER 2023-07-19 16:28 | Outpatient (CLI) | payer BC ==
[~2023-07-19] VITALS: Ht 175.3 cm; Wt 116.8 kg
[~2023-07-19 16:28] MED LIST changes: +ALBUTEROL SULFATE 2.5MG/0.5ML INH NEB SOLN INH PRN; +EPINEPHrine INJ 1 MG/ML 1ML AMP IM PRN; +diphenhydrAMINE 50MG/ML VIAL IV PRN; +methylPREDNISolone 125MG 2ML VIAL IV PRN
[2023-07-19] MEDS ORDERED: NS 1,000 ML IV SCH (16:30)
[2023-07-19] MEDS: FERRIC CARBOXYMALTOSE INJ 750 MG in NS 250 ML (>50kg) IV ONE (16:38)
[2023-07-19 16:49] VITALS: BP 123/71; O2SAT 98
[2023-07-19 18:03] VITALS: BP 122/70; O2SAT 100
== END 2023-07-19 18:00 | disposition home or self-care (01) ==
LOC: M INFU 16:28
PROVIDERS: ATTEND Internal Medicine Hematology
DX: D50.9 Iron deficiency anemia, unspecified (principal); Z88.0 Allergy status to penicillin; Z88.1 Allergy status to other antibiotic agents; Z88.2 Allergy status to sulfonamides; Z88.8 Allergy status to other drugs, medicaments and biological substances; Z91.013 Allergy to seafood; Z91.041 Radiographic dye allergy status; Z91.018 Allergy to other foods; Z91.048 Other nonmedicinal substance allergy status; Z91.040 Latex allergy status
CPT/HCPCS: 96365; J1439

== ENCOUNTER 2023-07-26 14:40 | Outpatient (CLI) | payer BC ==
[2023-07-26 14:40] VITALS: BP 126/69; O2SAT 98
[~2023-07-26 14:40] MED LIST changes: +NS 1,000 ML IV SCH
[2023-07-26] MEDS: FERRIC CARBOXYMALTOSE INJ 750 MG in NS 250 ML (>50kg) IV ONE (14:45)
[2023-07-26 16:03] VITALS: BP 126/71; O2SAT 97
== END 2023-07-26 16:05 | disposition home or self-care (01) ==
LOC: M INFU 14:40
PROVIDERS: ATTEND Internal Medicine Hematology
DX: D50.9 Iron deficiency anemia, unspecified (principal); Z91.041 Radiographic dye allergy status; Z88.0 Allergy status to penicillin; Z88.2 Allergy status to sulfonamides; Z88.1 Allergy status to other antibiotic agents; Z91.040 Latex allergy status; Z88.3 Allergy status to other anti-infective agents
CPT/HCPCS: 96365; J1439

== ENCOUNTER → 2024-01-07 | Outpatient (CLI) | payer BC ==
[~2024-01-07] MED LIST changes: -ALBUTEROL SULFATE 2.5MG/0.5ML INH NEB SOLN INH PRN; -EPINEPHrine INJ 1 MG/ML 1ML AMP IM PRN; -NS 1,000 ML IV SCH; +ONDA-282 PO; -ONDA4TAB6 PO; -diphenhydrAMINE 50MG/ML VIAL IV PRN; -methylPREDNISolone 125MG 2ML VIAL IV PRN
[2024-01-07 15:25] LABS: BASO % 0.6 % (0.0-1.0); EOS # 0.2 10^3/uL (0.0-0.5); EOS % 2.7 % (0.0-3.0); LYMPH # 2.9 10^3/uL (1.5-5.0); MEAN CORPUSCULAR HEMOGLOBIN 27.3 pg (27.0-33.0); MEAN CORPUSCULAR HGB CONC 30.6 g/dl (32.0-36.5); MEAN CORPUSCULAR VOLUME 89.3 fl (80.0-96.0); MONO # 0.8 10^3/uL (0.0-0.8); MONO % 10.5 % (2.0-8.0); NEUTROPHILS # 3.2 10^3/uL (1.5-8.5); NEUTROPHILS % 44.8 % (36.0-66.0); PLATELET COUNT, AUTOMATED 302 10^3/uL (150-450); RED BLOOD COUNT 4.03 10^6/uL (4.00-5.40); WHITE BLOOD COUNT 7.2 10^3/uL (4.0-10.0)
[2024-01-07 15:57] LABS: FERRITIN 7.1 NG/ML (7.3-270.7); FOLATE 8.92 NG/ML (>5.4)
== END ==
LOC: M PLALAB 12:16
PROVIDERS: ATTEND Internal Medicine Hematology
DX: D50.9 Iron deficiency anemia, unspecified (principal)

== ENCOUNTER → 2024-01-07 | Outpatient (CLI) | payer BC ==
[2024-01-07 15:24] LABS: BASO % 0.4 % (0.0-1.0); EOS # 0.2 10^3/uL (0.0-0.5); EOS % 2.5 % (0.0-3.0); HEMATOCRIT 35.8 % (36.0-47.0); LYMPH % 41.8 % (24.0-44.0); MEAN CORPUSCULAR HEMOGLOBIN 27.2 pg (27.0-33.0); MEAN CORPUSCULAR HGB CONC 30.7 g/dl (32.0-36.5); MEAN CORPUSCULAR VOLUME 88.4 fl (80.0-96.0); MONO # 0.7 10^3/uL (0.0-0.8); NEUTROPHILS # 3.3 10^3/uL (1.5-8.5); PLATELET COUNT, AUTOMATED 304 10^3/uL (150-450); RED BLOOD COUNT 4.05 10^6/uL (4.00-5.40); WHITE BLOOD COUNT 7.2 10^3/uL (4.0-10.0)
[2024-01-07 15:34] LABS: HEMOGLOBIN A1c 6.8 % (4.0-6.0)
[2024-01-07 15:54] LABS: ALBUMIN 3.7 G/DL (3.2-5.2); ALKALINE PHOSPHATASE 72 U/L (35-104); ALT/SGPT 16 U/L (7.0-40); AST/SGOT 9 U/L (<34); BILIRUBIN,TOTAL 0.4 MG/DL (0.3-1.2); BLOOD UREA NITROGEN 17 MG/DL (9-23); CALCIUM LEVEL 10.8 MG/DL (8.5-10.1); CARBON DIOXIDE LEVEL 28 MMOL/L (20-31); CHLORIDE LEVEL 105 MMOL/L (98-107); CREATININE FOR GFR 0.64 MG/DL (0.55-1.30); GLOMERULAR FILTRATION RATE > 60.0 (>51); GLUCOSE, FASTING 80 MG/DL (60-100); POTASSIUM SERUM 4.2 MMOL/L (3.5-5.1); SODIUM LEVEL 138 MMOL/L (136-145); TOTAL PROTEIN 7.1 G/DL (5.7-8.2)
== END ==
LOC: M PLALAB 12:14
PROVIDERS: ATTEND Family Medicine
DX: E11.9 Type 2 diabetes mellitus without complications (principal)

== ENCOUNTER 2024-01-23 12:21 | Outpatient (CLI) | payer BC ==
[~2024-01-23] VITALS: Ht 170.2 cm; Wt 124.0 kg
[~2024-01-23 12:21] MED LIST changes: +ALBUTEROL SULFATE 2.5MG/0.5ML INH NEB SOLN INH PRN; -AZEL0.1S NARES; +AZEL137S8 NARES; +EPINEPHrine INJ 1 MG/ML 1ML AMP IM PRN; +diphenhydrAMINE 50MG/ML VIAL IV PRN; +methylPREDNISolone 125MG 2ML VIAL IV PRN
[2024-01-23] MEDS ORDERED: NS 1,000 ML IV SCH (12:30)
[2024-01-23 12:35] VITALS: BP 127/75; O2SAT 98
[2024-01-23] MEDS: IRON SUCROSE 300 MG in NS 250 ML OVER 90 MIN. IV ONE (13:15)
[2024-01-23 15:00] VITALS: BP 127/82; O2SAT 98
== END 2024-01-23 15:00 ==
LOC: M INFU 12:21
PROVIDERS: ATTEND Internal Medicine Hematology
DX: D50.9 Iron deficiency anemia, unspecified (principal); Z88.0 Allergy status to penicillin; Z88.2 Allergy status to sulfonamides; Z91.09 Other allergy status, other than to drugs and biological substances; Z91.041 Radiographic dye allergy status; Z91.018 Allergy to other foods
CPT/HCPCS: 96365; 96366; J1756

== ENCOUNTER 2024-02-12 15:50 | Outpatient (CLI) | payer BC ==
[~2024-02-12] VITALS: Ht 154.9 cm; Wt 110.0 kg
[~2024-02-12 15:50] MED LIST changes: +NS 1,000 ML IV SCH
[2024-02-12 16:00] VITALS: BP 133/81; O2SAT 98
[2024-02-12] MEDS: IRON SUCROSE 300 MG in NS 250 ML IV ONE (16:15)
[2024-02-12 17:50] VITALS: BP 134/83; O2SAT 98
== END 2024-02-12 17:50 ==
LOC: M INFU 15:50
PROVIDERS: ATTEND Internal Medicine Hematology
DX: D50.9 Iron deficiency anemia, unspecified (principal); Z88.0 Allergy status to penicillin; Z88.2 Allergy status to sulfonamides; Z88.1 Allergy status to other antibiotic agents; Z91.09 Other allergy status, other than to drugs and biological substances; Z91.041 Radiographic dye allergy status; Z91.018 Allergy to other foods
CPT/HCPCS: 96365; 96366; J1756

== ENCOUNTER → 2024-05-05 | Outpatient (CLI) | payer BC ==
[~2024-05-05] MED LIST changes: -ALBUTEROL SULFATE 2.5MG/0.5ML INH NEB SOLN INH PRN; -EPINEPHrine INJ 1 MG/ML 1ML AMP IM PRN; -NS 1,000 ML IV SCH; -diphenhydrAMINE 50MG/ML VIAL IV PRN; -methylPREDNISolone 125MG 2ML VIAL IV PRN
[2024-05-05 09:15] LABS: BASO % 0.6 % (0.0-1.0); EOS # 0.2 10^3/uL (0.0-0.5); HEMATOCRIT 36.6 % (36.0-47.0); HEMOGLOBIN 11.4 g/dl (12.0-15.5); LYMPH # 1.6 10^3/uL (1.5-5.0); LYMPH % 33.9 % (24.0-44.0); MEAN CORPUSCULAR HEMOGLOBIN 27.5 pg (27.0-33.0); MEAN CORPUSCULAR HGB CONC 31.1 g/dl (32.0-36.5); MEAN CORPUSCULAR VOLUME 88.2 fl (80.0-96.0); MONO # 0.6 10^3/uL (0.0-0.8); MONO % 11.8 % (2.0-8.0); NEUTROPHILS # 2.4 10^3/uL (1.5-8.5); NEUTROPHILS % 49.5 % (36.0-66.0); PLATELET COUNT, AUTOMATED 251 10^3/uL (150-450); RED BLOOD COUNT 4.15 10^6/uL (4.00-5.40); WHITE BLOOD COUNT 4.8 10^3/uL (4.0-10.0)
== END ==
LOC: M PLALAB 08:13 → M LAB 08:13
PROVIDERS: ATTEND Internal Medicine Hematology
DX: D50.9 Iron deficiency anemia, unspecified (principal)

== ENCOUNTER → 2024-05-05 | Outpatient (CLI) | payer BC ==
[2024-05-05 09:07] LABS: IONIZED CALCIUM 4.9 MG/DL (4.5-5.3)
[2024-05-05 09:27] LABS: HEMOGLOBIN A1c 6.9 % (4.0-6.0)
[2024-05-05 09:56] LABS: BLOOD UREA NITROGEN 12 MG/DL (9-23); CALCIUM LEVEL 9.3 MG/DL (8.5-10.1); CARBON DIOXIDE LEVEL 27 MMOL/L (20-31); CHLORIDE LEVEL 105 MMOL/L (98-107); GLOMERULAR FILTRATION RATE > 60.0 (>51); GLUCOSE, FASTING 125 MG/DL (60-100); POTASSIUM SERUM 4.4 MMOL/L (3.5-5.1); PTH INTACT 121.7 PG/ML (18.5-88.0); SODIUM LEVEL 140 MMOL/L (136-145); TOTAL 25(OH) VITAMIN D 29.7 NG/ML (20.0-100.0)
== END ==
LOC: M LAB 08:15 → M PLALAB 08:15
PROVIDERS: ATTEND Family Medicine
DX: E83.52 Hypercalcemia (principal)

== ENCOUNTER → 2024-09-24 | Outpatient (REF) | payer BC ==
[2024-09-24 17:11] LABS: BASO # 0.0 10^3/uL (0.0-0.2); BASO % 0.6 % (0.0-1.0); EOS # 0.3 10^3/uL (0.0-0.5); EOS % 3.6 % (0.0-3.0); LYMPH # 2.1 10^3/uL (1.5-5.0); LYMPH % 31.1 % (24.0-44.0); MONO # 0.5 10^3/uL (0.0-0.8); MONO % 7.4 % (2.0-8.0); NEUTROPHILS # 3.9 10^3/uL (1.5-8.5); NEUTROPHILS % 56.9 % (36.0-66.0); PLATELET COUNT, AUTOMATED 284 10^3/uL (150-450)
[2024-09-24 17:25] LABS: IRON (FE) 19 UG/DL (50-170); PERCENT SATURATION 5.3 % (13.2-45.0)
[2024-09-24 17:26] LABS: ALT/SGPT 24 U/L (7.0-40); AST/SGOT 22 U/L (<34); CALCIUM LEVEL 9.5 MG/DL (8.5-10.1); CARBON DIOXIDE LEVEL 26 MMOL/L (20-31); CHLORIDE LEVEL 105 MMOL/L (98-107); CHOLESTEROL LEVEL 208 MG/DL (<200); CHOLESTEROL RISK RATIO 2.79 (<5); CREATININE FOR GFR 0.69 MG/DL (0.55-1.30); GLOMERULAR FILTRATION RATE > 90.0 (>51); LDL CHOLESTEROL 116.9 MG/DL (<100); NON-HDL-C 133.5 MG/DL; POTASSIUM SERUM 4.3 MMOL/L (3.5-5.1); SODIUM LEVEL 141 MMOL/L (136-145); TRIGLYCERIDES LEVEL 83 MG/DL (<150)
[2024-09-24 17:28] LABS: VITAMIN B12 LEVEL 908 PG/ML (211-911)
[2024-09-24 17:38] LABS: ESTIMATED AVERAGE GLUCOSE 154.0 MG/DL (60-110)
[2024-09-24 18:01] LABS: CREATININE, URINE 124.2 MG/DL
[2024-09-24 18:03] LABS: MALB URINE SIEMENS < 3.0 MG/L
== END ==
LOC: M SFHCLERA 08:05
PROVIDERS: ATTEND Family Medicine
DX: D50.9 Iron deficiency anemia, unspecified (principal); E11.9 Type 2 diabetes mellitus without complications

== ENCOUNTER → 2024-10-21 | Outpatient (CLI) | payer BC | LOC: M WHC 06:48 | PROVIDERS: ATTEND Family Medicine | DX: Z12.31 Encounter for screening mammogram for malignant neoplasm of breast (principal); R92.313 Mammographic fatty tissue density, bilateral breasts ==